=== PATIENT | female | born 1960 | race Caucasian/White ===

== ENCOUNTER → 2019-12-17 11:11 | Outpatient (CLI) | payer OTHER, SELFPAY ==
--- NOTE | ~2019-12-17 | MR_ITS ---
EXAMINATION: MR lumbar spine wo [facility] EXAM DATE: 12/17/2019 11:57 INDICATION: chronic lbp radiating to left hip/leg, no trauma, no ca . TECHNIQUE: Multi-sequential, multiplanar MR images of the lumbar spine were obtained without contrast . Sagittal T1, T2, T2 fat saturation images. Axial T2 weighted images. There is no prior study for comparison. FINDINGS: Moderate to severe disc disease at L5-S1, moderate at L3-4 and L4-5, mild to moderate at L1 -2 and L2-3. The conus medullaris terminates at the T12-L1 level and has normal signal intensity and morphology. There is 3 mm retrolisthesis L2 on L3, 4 mm retrolisthesis L3 on L4, 4 mm anterolisthesi s L4 on L5. Vertebral body heights relatively well-maintained. There are no suspicious marrow signal abnormalities. Paraspinal soft tissue is unremarkable. Level by level evaluation: T12-L1: Disc does not extend beyond the endplate margin. Facet arthropathy: Mild. Neural foraminal stenosis: No stenosis. Central canal stenosis: No stenosis. L1-L2: There is a mild diffuse disc bulge. Facet arthropathy: Mild. Neural foraminal stenosis: No stenosis. Central canal stenosis: No stenosis. L2-L3: There is a moderate diffuse disc bulge. Facet arthropathy: Mild to moderate. Neural foraminal stenosis: Mild to moderate bilateral. Central canal stenosis: Mild. L3-L4: There is a moderate diffuse disc bulge. Facet arthropathy: Moderate. Neural foraminal stenosis: Moderate bilateral. Central canal stenosis: Moderate. L4-L5: There is a moderate diffuse disc bulge. Facet arthropathy: Severe left, moderate right . Ligamentum flavum enlargement. Neural foraminal stenosis: Mild to moderate bilateral. Central canal stenosis: Moderate to severe. L5-S1: There is a mild to moderate diffuse disc bulge. Facet arthropathy: Mild. Neural foraminal stenosis: Mild to moderate left, mild right. Central canal stenosis: Mild. IMPRESSION: 1. L4-5 grade 1 anterolisthesis, moderate to severe central canal stenosis. 2. Lesser spondylosis other levels. Reviewed, dictated and finalized at location A.
== END ==
PROVIDERS: PCP Student in an Organized Health Care Education/Training Program; Visit Provider Nurse Practitioner Adult Health
DX: M54.16 Radiculopathy, lumbar region (principal); M43.16 Spondylolisthesis, lumbar region
CPT/HCPCS: 72148

== ENCOUNTER 2020-02-22 06:54 | Outpatient (NON) | payer OTHER, SELFPAY ==
[2020-02-22 18:01] LABS: SARS-CoV-2 RNA PCR Negative
== END 2020-02-22 06:55 ==
LOC: ANHCOVIDDT 07:00
PROVIDERS: PCP Student in an Organized Health Care Education/Training Program; Visit Provider Student in an Organized Health Care Education/Training Program
DX: R50.9 Fever, unspecified (principal); R51.9 Headache, unspecified; Z20.828 Contact with and (suspected) exposure to other viral communicable diseases
CPT/HCPCS: 87635; C9803; U0003

== ENCOUNTER 2020-06-23 08:45 | Outpatient (CLI) | payer OTHER, SELFPAY ==
--- NOTE | ~2020-06-23 | DEXA_ITS ---
Bone Density Report Name: Sonia Reynoso Age: 60 Sex: Female Ethnicity: White Date of : 1960 Indication: postmenopausal; parental hip fracture; height loss; prior fracture; asthma or emphysema; Referring Provider: EDGARD CONTRERAS Study: Bone densitometry was performed. Exam Date: June 23, 2020 Accession number: [id number] Bone Density: Region BMD T-score Z-score Classification AP Spine (L1-L4) 1.096 0.4 1.9 Normal Femoral Neck (Left) 0.555 -2.6 -1.3 Osteoporosis Total Hip (Left) 0.930 -0.1 0.9 Normal Total Hip Bilateral Avg 0.981 0.3 1.3 Normal Femoral Neck (Right) 0.643 -1.9 -0.5 Osteopenia Total Hip (Right) 1.030 0.7 1.7 Normal World Health Organization criteria for BMD impression classify patients as: Normal (T-score at or above -1.0), Osteopenia (T-score between -1.0 and -2.5), or Osteoporosis (T-score at or below -2.5). 10-year Fracture Risk: FRAX not reported because: Some T-score for Spine Total or Hip Total or Femoral Neck at or below -2.5 Previous Exams: Region Exam Age BMD T-score BMD Change BMD Change Date g/cm2 vs Baseline vs Previous AP Spine(L1-L4) 06/23/2020 60 1.096 0.4 -0.024(-2.2%)* 0.024(2.2%)* 05/01/2018 58 1.072 0.2 -0.048(-4.3%)* -0.048(-4.3%)* 04/01/2014 53 1.120 0.7 Total Hip(Left) 06/23/2020 60 0.930 -0.1 -0.044(-4.5%)* -0.132(-12.4%) 05/01/2018 58 1.062 1.0 0.088(9.0%)* 0.088(9.0%)* 04/01/2014 53 0.974 0.3 Total Hip(Right) 06/23/2020 60 1.030 0.7 0.004(0.4%) -0.059(-5.4%)* 05/01/2018 58 1.089 1.2 0.063(6.2%)* 0.063(6.2%)* 04/01/2014 53 1.026 0.7 *Denotes significance at 95% confidence level, LSC for AP Spine = 0.022 g/cm2, LSC for Total Hip = 0.027 g/cm2 Clinical Information Provided by Patient: Has had a low trauma fracture Parent has had a hip fracture Has used the following medications: Vitamin D, Calcium Has the following medical conditions: Asthma or Emphysema Patient maximum height was 65.5 Menopause Age: 53 Does not regularly consume dairy products Onset of menses at age 10 Number of children 1 Impression: The patient has established osteoporosis, based on the Left Femoral Neck T-score and the existence of a prior fracture. The patient has risk factors, including: parental hip fracture, previous fracture. The BMD for the Total Hip(Left) decreased, changing by -12.4% since the last DXA exam. The BMD for the Total Hip(Right) decreased, changing by
== END 2020-06-23 08:46 | disposition home or self-care (01) ==
LOC: ANHIMG 08:47
PROVIDERS: PCP Student in an Organized Health Care Education/Training Program; Visit Provider Obstetrics & Gynecology
DX: M81.0 Age-related osteoporosis without current pathological fracture (principal); M85.851 Other specified disorders of bone density and structure, right thigh; Z78.0 Asymptomatic menopausal state
CPT/HCPCS: 77080

== ENCOUNTER 2020-08-24 10:35 | Outpatient (CLI) | payer OTHER, SELFPAY ==
--- NOTE | ~2020-08-24 | XR_ITS ---
EXAMINATION: XR_ENEMABAC_CR DATE: 08/24/2020 11:40 INDICATION: Incomplete colonoscopy TECHNIQUE: A spanish speaking babysitter radiograph was obtained. A catheter was inserted into the patient's rectum. Contra st was infused by gravity. Gas was infused by hand pump. Fluoroscopic spot images and conventional ra diographs were obtained. A total of 18 overhead images and 16 fluoroscopic images were obtained. Fluo roscopy exposure time was 2.2 minutes. Total DAP was 166.5 mGycm^2 COMPARISON: None. FINDINGS: There is a single small filling defect smooth margins consistent with a sessile polyp located at the proximal descending colon likely relatively close proximity to the ileocecal valve which measures eli roximately 1.7 x 0.8 cm in maximal diameter at its base and approximately 7 mm in thickness. No other polyps, strictures, diverticula or other mucosal irregularities appreciated throughout the remainder of the redundant colon. Small amount of contrast extends into the appendix. Cholecystectomy clips in the right upper quadrant. Moderate to severe lower lumbar spondylosis with grade 1 anterolisthesis L 4 on L5. IMPRESSION: 1. Suggestion of a small sessile polyp with smooth margins at the proximal ascending colon. Otherwise unremarkable double contrast enema. Reviewed, dictated and finalized at location A. IMPRESSION: 1. Suggestion of a small sessile polyp with smooth margins at the proximal asce nding colon. Otherwise unremarkable double contrast enema.
== END 2020-08-24 10:36 | disposition home or self-care (01) ==
LOC: ANHIMG 10:36
PROVIDERS: PCP Student in an Organized Health Care Education/Training Program; Visit Provider Internal Medicine Gastroenterology
DX: Z12.11 Encounter for screening for malignant neoplasm of colon (principal); M47.816 Spondylosis without myelopathy or radiculopathy, lumbar region
CPT/HCPCS: 74280

== ENCOUNTER 2022-11-22 09:58 | Outpatient (CLI) | payer OTHER, SELFPAY ==
--- NOTE | ~2022-11-22 | DEXA_ITS ---
Bone Density Report Name: BLAKE COBB Age: 62 Sex: Female Ethnicity: White Date of : 1960 Indication: postmenopausal; screening for osteoporosis; height loss; asthma or emphysema; Referring Provider: EDGARD CONTRERAS Study: Bone densitometry was performed. Exam Date: November 22, 2022 Accession number: [id number] Bone Density: Region BMD T-score Z-score Classification AP Spine(L1-L4) 1.226 1.6 3.3 Normal Femoral Neck (Left) 0.609 -2.2 -0.7 Osteopenia Total Hip (Left) 0.964 0.2 1.3 Normal Femoral Neck (Right) 0.705 -1.3 0.1 Osteopenia Total Hip (Right) 1.061 1.0 2.1 Normal Total Hip Mean 1.013 0.6 1.7 Normal World Health Organization criteria for BMD impression classify patients as: Normal (T-score at or above -1.0), Osteopenia (T-score between -1.0 and -2.5), or Osteoporosis (T-score at or below -2.5). 10-year Fracture Risk: FRAX not reported because: Treated for osteoporosis Clinical Information Provided by Patient: Is being treated for osteoporosis Has used the following medications: Boniva (i.e. ibandronate), Vitamin D, Calcium Has the following medical conditions: Asthma or Emphysema Patient maximum height was 65 Menopause Age: 53 Does not regularly consume dairy products Onset of menses at age 10 Number of children 1 Impression: The patient has low bone mass, based on the Left Femoral Neck T-score. Discussion: It is important to ask patients whether they are taking their medications and to encourage continued and appropriate compliance with their osteoporosis therapies to reduce fracture risk. It is also important to review their risk factors and encourage appropriate calcium and vitamin D intakes, exercise, fall prevention and other lifestyle measures. Follow-Up: Consider a repeat BMD and Vertebral Fracture Assessment (VFA) exam in 2 years or sooner if medically necessary, to reassess this patient's status. Reported by: [facility] on 11/24/2022 1:51:00 PM. Reviewed, dictated and finalized at location AChai GROSS
== END 2022-11-22 09:59 | disposition home or self-care (01) ==
LOC: ANHIMG 10:00
PROVIDERS: PCP Student in an Organized Health Care Education/Training Program; Visit Provider Obstetrics & Gynecology
DX: M81.0 Age-related osteoporosis without current pathological fracture (principal); M85.89 Other specified disorders of bone density and structure, multiple sites
CPT/HCPCS: 77080

== ENCOUNTER 2023-07-16 13:27 | Outpatient (CLI) | payer OTHER, SELFPAY ==
--- NOTE | ~2023-07-16 | MR_ITS ---
EXAMINATION: MR breast BI wo/w con INDICATION: Atypical ductal hyperplasia TECHNIQUE: Axial VIBRANT pre and dynamic post contrast, Sagittal VIBRANT post contrast, Axial T2 STIR ASSET COMPARISON: Mammography dated 06/20/2023 CONTRAST: Multihance, 20 cc BREAST COMPOSITION: Almost entirely fat FINDINGS: RIGHT BREAST: There is mild background parenchymal enhancement. No abnormal enhancement is present af ter contrast administration. No pathologically enlarged axillary or internal mammary lymph nodes are identified. LEFT BREAST: There is mild background parenchymal enhancement. There is probable focal postbiopsy maxi nge in the outer left breast. No abnormal enhancement is present after contrast administration. No pa thologically enlarged axillary or internal mammary lymph nodes are identified. IMPRESSION: No suspicious enhancement identified. No MR evidence for malignancy. BI-RADS Category 1: Negative Reviewed, dictated and finalized at [facility].
== END 2023-07-16 13:28 | disposition home or self-care (01) ==
PROVIDERS: PCP Student in an Organized Health Care Education/Training Program; Visit Provider Surgery
DX: N60.92 Unspecified benign mammary dysplasia of left breast (principal); Z12.39 Encounter for other screening for malignant neoplasm of breast; R92.2 Inconclusive mammogram
CPT/HCPCS: 77049; A9577; C8908

== ENCOUNTER 2023-08-05 08:00 | Emergency (ER) | payer OTHER, SELFPAY ==
--- NOTE | 2023-08-05 08:06 | ED.URI ---
HPI - URI/Sore Throat General Chief Complaint: Upper Respiratory Infection Stated Complaint: SORE THROAT S/P + STREP Source: patient Mode of arrival: ambulatory Limitations: no limitations History of Present Illness HPI Narrative: Patient is a 63-year-old female who presents with 4 days of sinus congestion, postnasal drip and slight sore throat. Patient was treated for strep throat 3 weeks ago and wants to ensure she does not have strep again. Patient takes daily allergy medicine and has been taking Sudafed. Denies any fever, chills, nausea, vomiting, diarrhea. Related Data Home Medications Medication Instructions Recorded Confirmed albuterol sulfate 90 mcg/actuation 1 inhalation inhalation Q4H 04/25/19 08/05/23 aerosol inhaler (Proventil HFA) clopidogrel 75 mg tablet (Plavix) 75 mg PO DAILY 04/25/19 08/05/23 coenzyme Q10 200 mg capsule 200 mg PO DAILY 04/25/19 08/05/23 esomeprazole magnesium 40 mg 40 mg PO DAILY 04/25/19 08/05/23 capsule,delayed release (Nexium) fluticasone furoate 100 1 inhalation inhalation DAILY 04/25/19 08/05/23 mcg-vilanterol 25 mcg/dose inhalation powder (Breo Ellipta) montelukast 10 mg tablet 10 mg PO DAILY 04/25/19 08/05/23 (Singulair) omalizumab 150 mg subcutaneous 150 mg subcut ONCE 04/25/19 08/05/23 solution (Xolair) rosuvastatin 10 mg tablet (Crestor) 10 mg PO DAILY 04/25/19 08/05/23 spironolactone 50 mg tablet 50 mg PO DAILY 04/25/19 08/05/23 diltiazem HCl 300 mg 240 mg PO DAILY 07/09/23 08/05/23 capsule,extended release 24 hr (Cardizem CD) levothyroxine 100 mcg tablet 112 mcg PO DAILY 07/09/23 08/05/23 methocarbamol 500 mg tablet 500 mg PO BID-TID 07/09/23 08/05/23 olopatadine 665 mcg-mometasone 25 2 spray intranasal BID 08/03/23 08/05/23 mcg/spray nasal spray tramadol 50 mg tablet 50 mg PO Q6H PRN Pain 08/03/23 08/05/23 Allergies Allergy/AdvReac Type Severity Reaction Status Date / Time aspirin Allergy Severe Swelling Verified 08/05/23 08:10 of Lip/Tongue/Throat Sulfa (Sulfonamide Allergy Intermediate Hives Verified 08/05/23 08:10 Antibiotics) Review of Systems Review of Systems: All systems reviewed & are unremarkable except as noted in HPI and below Constitutional: Constitutional: Denies body ache(s), Denies chills, Denies fatigue, Denies fever(s), Denies headache(s), Denies malaise and Denies weakness Eyes: Eyes: Denies blurry vision, Denies itchy eyes and Denies loss of vision ENT: Denies otalgia, Denies headache(s), Reports nasal congestion, Reports post nasal drip, Denies sinus pain and Reports sore throat Cardiovascular: Cardiovascular: Denies chest pain, Denies irregular heart rhythm and Denies dyspnea Respiratory: Respiratory: Denies cough and Denies dyspnea Gastrointestinal: Gastrointestinal: Denies abdominal pain, Denies diarrhea, Denies nausea and Denies vomiting Musculoskeletal: Musculoskeletal: Denies back pain, Denies myalgias and Denies arthralgias Integumentary/Breasts: Skin/Breast: Denies pruritus and Denies rash Neurologic: Denies headache(s), Denies loss of vision and Denies weakness Psychiatric: Psychiatric: Reports no additional psychiatric complaints Endocrine: Endocrine: Denies fatigue Allergic/Immunologic: Allergic/Immunologic: Denies itchy eyes PMFSH Past Medical History Medical History Asthma Deep vein thrombosis Hypertension Hypothyroid Pulmonary embolism Restless leg syndrome Sleep apnea Tachycardia Surgical History Surgical History H/O left knee surgery H/O sinus surgery History of carpal tunnel surgery History of cataract surgery History of section History of surgery on arm S/P cholecystectomy Family History Family History Father Hypertension Family history of elevated blood lipids Cerebrovascular accident As
[2023-08-05 08:16] VITALS: BP 136/85; PULSE 91; RESP 15; TEMP 36.7; O2SAT 99
== END 2023-08-05 08:40 | disposition home or self-care (01) ==
PROVIDERS: Emergency Provider Nurse Practitioner Family; PCP Student in an Organized Health Care Education/Training Program
DX: J06.9 Acute upper respiratory infection, unspecified (principal); J45.909 Unspecified asthma, uncomplicated; I10 Essential (primary) hypertension; E03.9 Hypothyroidism, unspecified; G25.81 Restless legs syndrome; Z86.711 Personal history of pulmonary embolism; Z86.718 Personal history of other venous thrombosis and embolism
CPT/HCPCS: 87081; 87880; 99213; G0463

== ENCOUNTER 2023-08-13 15:27 | Outpatient (CLI) | payer OTHER, SELFPAY ==
[2023-08-14 14:19] LABS: Homocysteine 9.5 umol/L (<10.4)
[2023-08-22 19:48] LABS: Factor V (Leiden) Mutation NEGATIVE
== END 2023-08-13 15:28 | disposition home or self-care (01) ==
PROVIDERS: PCP Student in an Organized Health Care Education/Training Program; Visit Provider Internal Medicine Hematology & Oncology
DX: D68.69 Other thrombophilia (principal)
CPT/HCPCS: 36415; 81240; 81241; 83090; 85300; 85303; 85306; 85613; 85730; 86146

== ENCOUNTER 2023-08-17 15:27 | Outpatient (CLI) | payer OTHER, SELFPAY ==
[2023-08-19 19:33] LABS: Lupus dRVVT Screen 42 sec (< OR = 45); PTT-LA Screen 34 sec (< OR = 40)
[2023-08-20 05:19] LABS: Antithrombin III Activity 132 % normal (80-135)
== END 2023-08-17 15:28 | disposition home or self-care (01) ==
LOC: ANHLAB 15:28
PROVIDERS: PCP Student in an Organized Health Care Education/Training Program; Visit Provider Internal Medicine Hematology & Oncology
DX: D68.69 Other thrombophilia (principal)
CPT/HCPCS: 36415; 85300; 85303; 85306; 85613; 85730

== ENCOUNTER 2023-09-10 07:55 | Outpatient (CLI) | payer OTHER, SELFPAY ==
--- NOTE | ~2023-09-10 | MM_ITS ---
EXAMINATION: MM_MAGSEEDLT_MG INDICATION: Left breast atypical ductal hyperplasia TECHNIQUE: The procedure for a ultrasound -guided Magseed localization was discussed with the patient . Risks discussed included bleeding and infection. The patient verbalized understanding and agreed to proceed. The time out was performed to verify the patient's name, date of , and site of procedure. The s kin overlying the left breast was prepared in usual fashion. Utilizing mammographic guidance, the nee dle was advanced into the left breast. Confirmation of Magseed position was achieved with ultrasound and subsequent mediolateral and craniocaudal mammogram. The patient tolerated procedure without immed iate complication. BREAST PARENCHYMAL COMPOSITION: Not dense: There are scattered areas of fibroglandular density. FINDINGS: Mammographic images demonstrate deployment of the Magseed device of the left breast. IMPRESSION: 1. Successful ultrasound-guided left breast Magseed localization. Post procedure mammogram for marker placement. Reviewed, dictated and finalized at location B. IMPRESSION: 1. Successful ultrasound-guided left breast Magseed localization. Post procedur e mammogram for marker placement.
== END 2023-09-10 07:56 | disposition home or self-care (01) ==
PROVIDERS: PCP Student in an Organized Health Care Education/Training Program; Visit Provider Surgery
DX: Z12.31 Encounter for screening mammogram for malignant neoplasm of breast (principal); N60.92 Unspecified benign mammary dysplasia of left breast
CPT/HCPCS: 19281; A4648

== ENCOUNTER 2023-09-21 08:19 | Outpatient (CLI) | payer OTHER, SELFPAY ==
--- NOTE | 2023-09-21 08:29 | ECG_ITS ---
Test Date: 2023-09-21 08:46:11 Measurements Intervals [place] Rate: 67 P: 62 VT: 156 QRS: -18 QRSD: 95 T: 23 QT: 360 QTc: 382 Interpretive Statements SINUS RHYTHM WITH SINUS ARRHYTHMIA EXTENSIVE ANTERIOR INFARCT, AGE INDETERMINATE INFERIOR INFARCT, AGE INDETERMINATE BASELINE ARTIFACT- I, II, III, AVR, AVL, AVF, V1 ABNORMAL ECG No previous ECG available for comparison Electronically Signed On 09-21-2023 09:17:24 CDT by Steve Garcia D.O.
[2023-09-21 09:04] LABS: Anion Gap 12 mmol/L (4-12); Blood Urea Nitrogen 19 mg/dL (7-17); Calcium 9.7 mg/dL (8.4-10.2); Carbon Dioxide 28 mmol/L (22-30); Chloride 99 mmol/L (98-107); Estimated Glomerular Filt Rate > 60; Glucose 115 mg/dL (65-110); Sodium 139 mmol/L (137-145)
== END 2023-09-21 08:20 | disposition home or self-care (01) ==
LOC: ANHSURGERY 08:24
PROVIDERS: Anesthesiology; PCP Student in an Organized Health Care Education/Training Program; Visit Provider Surgery
DX: Z01.818 Encounter for other preprocedural examination (principal); I10 Essential (primary) hypertension; I49.8 Other specified cardiac arrhythmias; R94.31 Abnormal electrocardiogram [ECG] [EKG]; Z79.899 Other long term (current) drug therapy
CPT/HCPCS: 36415; 80048; 93005

== ENCOUNTER 2023-09-22 00:29 | Day surgery (SDC) | payer OTHER, SELFPAY ==
[2023-09-16 11:41] VITALS: BMI 38.3
--- NOTE | 2023-09-16 11:50 | PC.NURSE ---
Report to the Outpatient Waiting Room, entrance under the green pavilion located off [facility], at time _0600_ on date _[id number]_. Planned Procedure Time: _0730_. Time changes happen often and if your time is changed the preop area will call you the afternoon before. - You and your visitor will be asked to self-screen and do not enter if you have any COVID symptoms. - A mask is optional within the hospital at this time. Patients may have clear liquids (water, carbonated beverages, clear teas, apple juice) until 3 hours prior to surgery with a maximum of 20 ounces. - No food from midnight until time of surgery Take the following medications with a SIP of water the morning of surgery: ___Diltiazem, Levothyroxine, Breo Ellipta DO NOT STOP ANY OF YOUR OTHER PRESCRIPTION MEDICATIONS PRIOR TO SURGERY ?EXCEPT THE FOLLOWING Medications to discontinue per physician All vitamins and fish oil Date to take last nilw__[id number] _Patient stopped Plavix 09-15-2023 Please no make-up, nail chinese, hairspray, perfume, deodorant, or body powder the day of surgery. No jewelry (including any body piercings) or valuables the day of surgery, leave them at home. Please take a shower or bath the night before, or the morning of, surgery with an antibacterial soap. Wear comfortable, loose fitting clothing. - Jewelry must be removed prior to entering the operating room. Rings and piercings that are not removed may be cut off. - The hospital will not accept responsibility for valuables. - Please leave all valuables, including medications, at home the day of surgery. If you are going home after surgery, a licensed certified driver examiner must drive you home. - NO public transportation without another adult if you receive anesthesia. - We recommend that an adult stay with you for 24 hours following discharge. - We also recommend that you do not drive, make important decision, drink alcoholic beverages, or take any drugs that were not prescribed by your health care provider for at least 24 hours after your discharge time. Follow any additional instructions given to you from your surgeon. If you or anyone in your household have experienced Covid symptoms in the past week, please notify your surgeon or the nurse liaison at the phone number below for possible testing. Telephone instructions given to __Sonia___and asked if any additional questions and then verbalized understanding. Patient advised to call surgeon office or pre surgery nurse liaison [phone] if any additional questions.
[2023-09-22] VITALS (8 sets, daily range): BP systolic 101–134; BP diastolic 71–78; PULSE 73–88; RESP 14–20; TEMP 36.2–36.8; O2SAT 94–100
--- NOTE | ~2023-09-22 | MM_ITS ---
MM_FAXITRON_MG 09/22/2023 09:20 Indication: Breast cancer Procedure: Faxitron specimen radiograph Comparison: 09/10/2023 Findings: Specimen radiograph contains tissue marker from previous biopsy and magseed device. Impression: 1: Tissue marker and magseed contained in postsurgical biopsy specimen. Reviewed, dictated and finalized at location B. Impression: 1: Tissue marker and magseed contained in postsurgical biopsy specimen.
[2023-09-22] MEDS: ACETAMINOPHEN 500 MG TABLET 1000 MG PO (06:20)
[2023-09-22] MEDS: LACTATED RINGERS 1,000 ML 30 ML IV CONT ×2 (06:25→08:48)
--- NOTE | 2023-09-22 07:00 | WPDHPUPDATE1 ---
History and Physical Update Update Date/Time: 09/22/23 07:00 - Left lumpectomy with Mag seed localization and possible adjacent tissue transfer. History and Physical has been reviewed, including an updated exam of the patient. There are NO changes in the patient's condition. Risks, benefits, and alternatives have been discussed and questions answered. Patient agrees to proceed with procedure.
--- NOTE | 2023-09-22 07:16 | WPDANESEPPF ---
Anes - Initial Pre Proc Eval Procedure: Operation Date: 09/22/23 07:30 Proposed Procedures p Left Breast Lumpectomy with Mag Seed Localization, Possible Adjacent Tissue Transfer - Madalyn Melgar MD Date/Time: 09/22/23 07:16 Surgeon: Madalyn Melgar MD Pre Op Diagnosis: atypical ductal hyperplasia left breast Patient Data Age: 63 Gender: F Height: 1.65 m Weight: 105.9 kg Last Vital Signs Temp 97.2 F L 09/22/23 06:01 Pulse 78 09/22/23 06:01 Resp 18 09/22/23 06:01 BP 117/74 09/22/23 06:01 Pulse Ox 99 09/22/23 06:01 O2 Del Method Room Air 09/22/23 06:01 Allergies Allergy/AdvReac Type Severity Reaction Status Date / Time aspirin Allergy Severe Swelling Verified 09/16/23 11:30 of Lip/Tongue/Throat Sulfa (Sulfonamide Allergy Intermediate Hives Verified 09/16/23 11:30 Antibiotics) Home Medications Medication Instructions Recorded Confirmed Type albuterol sulfate 90 mcg/actuation 1 inhalation inhalation Q4H PRN 04/25/19 09/16/23 History aerosol inhaler (Proventil HFA) Dyspnea clopidogrel 75 mg tablet (Plavix) 75 mg PO DAILY 04/25/19 09/16/23 History coenzyme Q10 200 mg capsule 200 mg PO DAILY 04/25/19 09/16/23 History esomeprazole magnesium 40 mg 40 mg PO DAILY 04/25/19 09/16/23 History capsule,delayed release (Nexium) fluticasone furoate 100 1 inhalation inhalation DAILY 04/25/19 09/16/23 History mcg-vilanterol 25 mcg/dose inhalation powder (Breo Ellipta) montelukast 10 mg tablet 10 mg PO DAILY 04/25/19 09/16/23 History (Singulair) omalizumab 150 mg subcutaneous 150 mg subcut ONCE 04/25/19 09/16/23 History solution (Xolair) rosuvastatin 10 mg tablet (Crestor) 10 mg PO DAILY 04/25/19 09/16/23 History spironolactone 50 mg tablet 50 mg PO DAILY 04/25/19 09/16/23 History alendronate 70 mg tablet (Fosamax) 70 mg PO WEEKLY #12 tabs 05/27/23 09/16/23 Rx methocarbamol 500 mg tablet 500 mg PO BID-TID 07/09/23 09/16/23 History olopatadine 665 mcg-mometasone 25 2 spray intranasal BID 08/03/23 09/16/23 History mcg/spray nasal spray acetaminophen 650 mg 1,300 mg PO Q12H 09/16/23 09/16/23 History tablet,extended release calcium 600 mg capsule 1,200 mg PO DAILY 09/16/23 09/16/23 History cholecalciferol (vitamin D3) 25 25 mcg PO DAILY 09/16/23 09/16/23 History mcg (1,000 unit) tablet (Vitamin D3) diltiazem HCl 240 mg 240 mg PO DAILY 09/16/23 09/16/23 History capsule,extended release 24 hr folic acid 1 mg tablet 1 mg PO DAILY 09/16/23 09/16/23 History levothyroxine 125 mcg tablet 125 mcg PO DAILY 09/16/23 09/16/23 History magnesium 250 mg tablet 250 mg PO DAILY 09/16/23 09/16/23 History multivitamin 1 tablet PO DAILY 09/16/23 09/16/23 History omega 1-bbz-ajy-fish oil 1,200 mg 1 cap PO DAILY 09/16/23 09/16/23 History (144 mg-216 mg) capsule (Fish Oil) pyridoxine (vitamin B6) 200 mg 200 mg PO DAILY 09/16/23 09/16/23 History tablet triamcinolone acetonide 55 mcg 1 spray intranasal DAILY 09/16/23 09/16/23 History nasal spray aerosol (Nasacort) Patient hx anesthesia problems: none Family hx anesthesia problems: none Results Review: All pre-operative results and documents have been reviewed as part of the pre-operative evaluation. [facility] Past Medical History Medical History Asthma Deep vein thrombosis Hypertension Hypothyroid Pulmonary embolism Restless leg syndrome Sleep apnea Tachycardia Surgical History Surgical History H/O left knee surgery H/O sinus surgery History of carpal tunnel surgery History of cataract surgery History of section History of surgery on arm S/P cholecystectomy Family History Family History Father Hypertension Family history of elevated blood lipids Cerebrovascular accident Asthma Mother Hypertension, Onset Age
[2023-09-22] MEDS: BUPIVACAINE/EPINEPHRINE 0.5% 10 ML VIAL 20 ML INFILTRATE (07:31)
[2023-09-22] MEDS: ceFAZolin 2 GM/D5W 50 ML 2 GM/50 ML BAG IVPB (07:31)
--- NOTE | 2023-09-22 08:31 | W.PM.PROC2 ---
Procedure Note - Detailed Date of Procedure 09/22/23 Pre-op Diagnosis atypical ductal hyperplasia left breast Post-op Diagnosis Same Procedure Performed 1. Left lumpectomy with magseed localization 2. Adjacent tissue transfer (2cm x 6cm) Surgeon Madalyn Melgar MD Apprenticeship Training Representative Yanely Esquivel PA-C Anesthesia General Description of Procedure Patient was identified in the pre-operative area and brought to the OR suite. She underwent tumor localization previously by IR with magseed placement. She was laid supine in the operating table and sequential compression devices were applied. General anesthesia was induced without difficulties. The left chest was prepped and draped in a sterile fashion. The sentimag probe was used to identify the area where the magseed was placed and a lateral inframammary incision was made. Dissection was carried down through the subcutaneous tissue into the breast tissue. The tumor was identified with palpation and using sentimag probe, and a rim of normal breast tissue was excised along with the tumor as our lumpectomy specimen. Once the specimen was completely excised, it was oriented using surgical paint according to seed district sales manager instructions. The specimen was placed in the faxitron and 2 radiographs were obtained and sent to Radiology for radiographic confirmation of biopsy marker and magseed within the specimen. Once the radiographic confirmation was received, the wound was irrigated with saline and hemostasis was assured. The breast tissue was immobilized superiorly to close the cavity and decrease seroma formation. The breast tissue was then advanced inferiorly to close the defect nicely. The deep dermal layer was approximated using interrupted 3-0 vicryl followed by 4-0 monocryl for the skin. Dermabond was applied followed by a surgical bra. Patient was awoken from anesthesia and taken to the recovery area in stable condition. All needles, instruments and sponge counts were correct as reported by the operating room staff. Patient tolerated the procedure well with no immediate complications. Yanely Esquivel PA-C was required for positioning and retraction throughout the entire case. Estimated Blood Loss 1 Pathology Yes Complications No immediate complications Condition Stable Disposition PACU [facility] Billing Surgery - Charge Forward: Surgery Billing (CPT 72101, [id number])
== END 2023-09-22 10:15 | disposition home or self-care (01) ==
PROVIDERS: PCP Student in an Organized Health Care Education/Training Program; Visit Provider Surgery
PROC: (CPT 19301; principal; 2023-09-22 07:30)
DX: N60.92 Unspecified benign mammary dysplasia of left breast (principal); N60.12 Diffuse cystic mastopathy of left breast; J45.909 Unspecified asthma, uncomplicated; I10 Essential (primary) hypertension; E03.9 Hypothyroidism, unspecified; G25.81 Restless legs syndrome; G47.30 Sleep apnea, unspecified; Z86.718 Personal history of other venous thrombosis and embolism; Z86.711 Personal history of pulmonary embolism; Z79.51 Long term (current) use of inhaled steroids; Z79.02 Long term (current) use of antithrombotics/antiplatelets; E66.9 Obesity, unspecified; Z68.38 Body mass index [BMI] 38.0-38.9, adult
CPT/HCPCS: 19301; 14001; 36415; 76098; 80048; 88305; 88307; 93005; A9270; J0690; J1100; J2405; J2704; J3010; J7120; Q9968

== ENCOUNTER 2024-01-20 09:51 | Outpatient (CLI) | payer OTHER, SELFPAY ==
[2024-01-20 10:01] LABS: Basophils Percent Auto 0.5 % (0.2-1.2); Eosinophils Absolute Auto 0.1 K/mm3 (0-0.3); Eosinophils Percent Auto 1.4 % (0-4.4); Hematocrit 44.6 % (37.0-47.0); Hemoglobin 14.7 g/dL (12.0-15.0); Immature Granulocyte Absolute 0.08 K/mm3 (0.00-0.031); Immature Granulocyte Percent A 1.1 % (0-0.5); Lymphocytes Absolute Auto 3.23 K/mm3 (0.9-3.2); Lymphocytes Percent Auto 43.9 % (18.3-44.2); Mean Corpuscular Hemoglobin 31.7 pg (26-34); Mean Corpuscular Volume 96.3 fl (80-100); Mean Platelet Volume 9.8 fl (7.4-10.4); Monocytes Absolute Auto 0.7 K/mm3 (0.1-0.6); Neutrophils Absolute Auto 3.2 K/mm3 (1.3-6.7); Neutrophils Percent Auto 44.1 % (45.5-73.1); Platelet Count Result 201 k/mm3 (150-375); Red Blood Count 4.63 M/mm3 (4.2-5.4); Red Cell Distribution Width 13.3 % (11.5-14.5); White Blood Count 7.4 K/mm3 (4.5-10.0)
[2024-01-20 10:06] LABS: Blood Urea Nitrogen 17 mg/dL (8-26); Carbon Dioxide 29 mmol/L (22-30); Chloride 103 mmol/L (98-109); Estimated Glomerular Filt Rate 50; Glucose 100 mg/dL (70-105); Ionized Calcium (POC) 1.17 mmol/L (1.11-1.31); Potassium 3.8 mmol/L (3.5-4.9); Sodium 142 mmol/L (138-146)
[2024-01-20 16:18] LABS: Alanine Aminotransferase 47 U/L (6-35); Albumin Level 4.6 g/dL (3.5-5.1); Alkaline Phosphatase 55 U/L (38-126); Anion Gap 7 mmol/L (4-12); Aspartate Amino Transferase 46 U/L (14-36); Bilirubin,Total 0.5 mg/dL (0.2-1.3); Blood Urea Nitrogen 17 mg/dL (7-17); Calcium 9.4 mg/dL (8.4-10.2); Carbon Dioxide 27 mmol/L (22-30); Chloride 105 mmol/L (98-107); Estimated Glomerular Filt Rate > 60; Glucose 96 mg/dL (65-110); Potassium 3.9 mmol/L (3.4-5.0); Sodium 139 mmol/L (137-145)
== END 2024-01-20 09:52 | disposition home or self-care (01) ==
LOC: ANHLAB 09:52
PROVIDERS: PCP Student in an Organized Health Care Education/Training Program; Visit Provider Internal Medicine Hematology & Oncology
DX: N60.99 Unspecified benign mammary dysplasia of unspecified breast (principal)
CPT/HCPCS: 36415; 80047; 80053; 85025

== ENCOUNTER 2024-04-25 13:49 | Outpatient (CLI) | payer OTHER, SELFPAY ==
[2024-04-25 14:25] LABS: Basophils Absolute Auto 0.1 K/mm3 (0.0-0.1); Basophils Percent Auto 0.6 % (0.2-1.2); Eosinophils Absolute Auto 0.1 K/mm3 (0-0.3); Eosinophils Percent Auto 0.8 % (0-4.4); Hemoglobin 13.9 g/dL (12.0-15.0); Immature Granulocyte Absolute 0.03 K/mm3 (0.00-0.031); Immature Granulocyte Percent A 0.3 % (0-0.5); Lymphocytes Absolute Auto 3.08 K/mm3 (0.9-3.2); Lymphocytes Percent Auto 34.8 % (18.3-44.2); Mean Corpuscular HGB Conc 33.1 g/dl (32-36); Mean Corpuscular Hemoglobin 32.6 pg (26-34); Mean Corpuscular Volume 98.6 fl (80-100); Mean Platelet Volume 9.9 fl (7.4-10.4); Monocytes Absolute Auto 0.7 K/mm3 (0.1-0.6); Monocytes Percent Auto 7.5 % (2.6-8.5); Platelet Count Result 206 k/mm3 (150-375); Red Blood Count 4.26 M/mm3 (4.2-5.4); Red Cell Distribution Width 13.6 % (11.5-14.5); White Blood Count 8.9 K/mm3 (4.5-10.0)
[2024-04-25 14:34] LABS: Blood Urea Nitrogen 20 mg/dL (8-26); Carbon Dioxide 24 mmol/L (22-30); Chloride 105 mmol/L (98-109); Estimated Glomerular Filt Rate 50; Glucose 119 mg/dL (70-105); Ionized Calcium (POC) 1.16 mmol/L (1.11-1.31); Sodium 141 mmol/L (138-146)
== END 2024-04-25 13:50 | disposition home or self-care (01) ==
LOC: ANHLAB 13:51
PROVIDERS: PCP Student in an Organized Health Care Education/Training Program; Visit Provider Internal Medicine Hematology & Oncology
DX: N60.99 Unspecified benign mammary dysplasia of unspecified breast (principal); D68.69 Other thrombophilia
CPT/HCPCS: 36415; 80047; 85025

== ENCOUNTER 2024-06-07 10:25 | Outpatient (CLI) | payer OTHER, SELFPAY ==
--- NOTE | ~2024-06-07 | MMUS_ITS ---
EXAMINATION: US breast RT limited, MM diagnostic becky BI w anneliese HISTORY: Palpable right breast lump. Recent left lumpectomy. TECHNIQUE: Additional 3-D tomosynthesis images of the breasts were performed and synthetic 2-D images were generated. CAD analysis was submitted and interpreted. High resolution Limited left breast ultr asound was performed. COMPARISON: Comparison to multiple prior studies sequentially, with oldest reviewed study dated 10/2021. BREAST PARENCHYMAL COMPOSITION: Not Dense: The breasts are almost entirely fatty. FINDINGS: MAMMOGRAPHIC FINDINGS: There is no mammographic evidence for malignancy in the right breast. There are lumpectomy changes in the mid outer aspect of the left breast at approximately the 3:00 position. There are no suspicious masses or calcifications in the left breast to suggest malignancy. ULTRASOUND: Limited right breast ultrasound: Normal heterogeneous echotexture in the area of palpable concern. No discrete mass. IMPRESSION: 1. No evidence for malignancy in either breast. 2. Routine yearly screening mammogram and regular clinical breast examination are recommended. BI-RADS Category 2: Benign finding(s). Reviewed, dictated and finalized at location B. IMPRESSION: 1. No evidence for malignancy in either breast. 2. Routine yearly screening mammogram and regular clinical breast examination a re recommended. BI-RADS Category 2: Benign finding(s).
--- OUTSIDE RECORDS SUMMARY | 2024-06-07 11:24 | XMS_ITS | Encounter Summary ---
Author Organization [facility] Address [address] [place] [address] Care Team Providers Care Oven Tender Bagels Name Role Phone Iker Haynes DO Primary Care Provider + Encounter Details Date Type Department Care Team (Late st Contact Info) Description 10/11/2021 Finalta Message Enc [facility] Family & Internal Medicine [facility] [address] [place] [address] Iker Haynes DO [address] [place] [address] Request for surgery release Social History Tobacco Use Types Packs/Day Years Used Date Smoking Tobacco: Never Smokeless Tobacco: Never Alcohol Use Standard Drinks/Week Comments Never 0 (1 standard drink = 0.6 oz pur e alcohol) AUDIT-C Answer Date Recorded Frequency of Alcohol Consumption Never 04/11/2019 Average Number of Drinks Not on file 020 Frequency of Binge Drinking Not on file 03/26 PHQ-2 Answer Date Recorded PHQ-2 Score - If the patient scores above 3, please move on to questions 3-9 0 06/02/2021 Comments No Sex and Gender Information Value Date Recorded Sex Assigned at Not on file Legal Sex Female 7:15 PM CDT Gender Identity Not on file Sexual Orientation Not on file 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 documented in this encounter Plan of Treatment Upcoming Encounters Date Type Department Care Team (Late st Contact Info) Description 08/01/2024 1:40 PM CDT Office Visit [facility] Family & Internal Medicine - [address] [phone] Iker Haynes DO [facility] [place] [address] documented as of this encounter Visit Diagnoses Not on filedocumented in this encounter Additional Health Concerns Assessment Noted Time PHQ-9 Depression Total Score: 0 04/11/19 20 1:04 PM OFFICE MACHINE EMBOSSOGRAPH OPERATOR documented as of this encounter Care Teams Oven Tender Bagels Relationship Specialty Start Date End Date Iker Haynes DO [address] [place] [id number] PCP - General FAMILY PRACTICE 03/10/19 documented as of this encounter
--- OUTSIDE RECORDS SUMMARY | 2024-06-07 11:24 | XMS_ITS | Clinical Summary ---
Author Organization [facility] Address [address] [place] [address] Care Team Providers Care Pole Sander Operator Name Role Phone Iker Haynes DO Primary Care Provider + Allergies Active Allergy Reactions Criticality Noted Date Comments Aspirin Anaphylaxis,Hives,Swelling High 8 hives Fenofibrate Rash Medium 08/02/2018 rash Pravastatin Myalgias Medium 08/02/2018 myalgias Simvastatin Myalgias Medium 08/02/2018 myalgias Sulfa Antibiotics Hives,Unknown High 08/02/2018 Medications esomeprazole 40 MG capsule 1 capsule (40 mg total) 2 (two) times daily. Active montelukast 10 MG tablet Take 1 tablet (10 mg total) by mouth daily. Active cetirizine 10 MG tablet Take 1 tablet (10 mg total) by mouth daily. Active spironolactone 50 MG tablet Take 1 tablet (50 mg total) by mouth daily. 0 Active rosuvastatin 10 MG tablet Take 1 tablet (10 mg total) by mouth daily. 0 Active Coenzyme Q10 10 MG capsule 200 mg daily. Activ e omalizumab 150 MG injection 1.2 mLs (150 mg total) once. Every 4 weeks Active cloNIDine 0.1 MG tablet Take 1 tablet (0.1 mg total) by mouth daily. Active EPINEPHrine 0.15 MG/0.3ML injection Inject 0.3 mLs (0.15 mg total) into the muscle. Active triamcinolone acetonide 55 MCG/ACT nasal inhaler 2 sprays by Each Nostril route daily. Active folic acid (FOLVITE) 1 MG tablet Take 3 tablets (3 mg total) by mouth daily. Active fish oil (OMEGA-3 FATTY ACID) 1000 MG Cap capsule 4 capsules (4,000 mg total) daily. Active magnesium oxide (MAG-OX) 400 MG tablet 1 tablet (400 mg total) daily. Active Cholecalciferol 50 MCG (2000 UT) Cap 2,000 Units daily. Active albuterol (PROVENTIL) (2.5 MG/3ML) 0.083% nebulizer solution Inhale the contents of 1 vial per nebulizer every 6 hours. 3 Active diclofenac sodium (VOLTAREN) 1 % gel Apply 2 g topically 2 (two) times daily. Active alendronate (FOSAMAX) 70 MG tablet Take 1 tablet (70 mg total) by mouth every 7 days. Active albuterol sulfate HFA 108 (90 Base) MCG/ACT inhaler Acti ve dilTIAZem ER 240 MG 24 hr capsule 4 Active fluticasone furoate-vilanter ol (BREO ELLIPTA) 100-25 MCG/ACT inhaler Inhale 1 puff into the lungs daily. Active methocarbamol (ROBAXIN) 500 MG tabletIndication s:Spinal stenosis of lumbar region at multiple levels TAKE 1 TABLET 3 TIMES A DAYAS NEEDED 90 tablet 4 Active anastrozole (ARIMIDEX) 1 MG tablet Take 1 tablet by mouth daily. Active traMADol ER 200 MG TABLET SR 24 HR 24 hr tablet as needed. Act ayala Multiple Vitamin (DAILY VITES) Tab Take 1 tablet by mouth daily. Active levothyroxine (SYNTHROID) 125 MCG tabletIndication s:Hypothyroidism , unspecified type TAKE 1 TABLET BY MOUTH EVERY MORNING 90 tablet 5 Active Active Problems Problem Noted Date Diagnosed Date Atypical ductal hyperplasia of left breast 07/02 Macular degeneration 08/04/2022 Pure hypercholesterolemia 06/04/2021 Osteoporosis 08/31/2020 Elevated transaminase level 05/21/2020 BMI 40.0-44.9, adult 01/22/2020 Allergies 01/18/2020 Anterolisthesis 01/18/2020 DDD (degenerative disc disease), lumbar 01/18/20 20 Spinal stenosis of lumbar region at multiple lev els 01/18/2020 Spinal stenosis 09/27/2019 Hypothyroidism, unspecified type 04/11/2019 Uncomplicated asthma, unspec ified asthma severity, unspecified whether persistent ([facility]) 04/11/2019 Afib ([facility]) 08/11/2015 Overview (04/11/2019): Secondary to central line placement status post cardioversion Dyslipidemia 08/11/2015 Overview (04/11/2019): LD and triglycerides are at goal, HDL is at goal on Crestor. HTN (hypertension) 08/11/2015 Overview (04/11/2019): Controlled Obstructive sleep apnea 07/24/2015 Overview (04/11/2019): History of on CPAP, managed by Dr. Inman Other diseases of vocal cords 05/29/2015 Resolved Problems Problem Noted Date Diagnosed Date Resolved Date PSVT (paroxysmal supraventri cular tachycardia) ([facility]) 09/27/2019 12/31/2021 Inappropriate sinus tachycardia ([facility]) 03/23/2019 12/31/2021 DVT (deep venous thrombosis) ([facility]) 08/11/2015 12/31/2021 Overview (04/11/2019): History of and pulmonary emboli in the past, on plavix for this as per her primary md last dvt was in 2004 Edema 08/11/2015 06/05/2021 Overview (04/11/2019): Likely secondary to Cardizem resolved on spironolactone. Encounters Date Type Department Care Team Description 04/25/2024 Scan [facility] INFO SRVCS Scanned, Doc [facility] Lab (SCAN) from Last 3 Months Immunizations Immunization Administration Dates Next Due Abrysvo Respiratory Syncytia l Virus (RSV) 0.5 mL, PF 11/22/2022 Afluria 36 MONTHS+ (Prefille d Syringe IIV4) 10/28/2018 Fluarix 11/20/2014 Flucelvax 2 YRS+ (Multi-Dose Vial) 01/25/2019 Fluzone Quad 3 Yrs+ (5.0 mL Multi Dose Vial) 11/12/2019 Hib 06/07/2015 Hib (Prohibit) 06/07/2015 Influenza (Generic) 11/21/2023, 2,10/28/2018,2014 Influenza Adult (Generic) 11/22/2022,,11/17/2020,2019,01/25/2019,10/30/2017,10/31/2016,0 10/27/2016,11/30/2015,11/27/2015, 015,11/05/2013,12/11/2012 MODERNA COVID-19 (SALES OPERATIONS MANAGER MARGUERITE JAMILAH), MRNA, LNP-S, PF, 50 MCG/ 0.25 ML DOSE 06/08/2021 Pneumococcal (Pneumovax 23) 01/18/2020 Pneumococcal (Prevnar 13) 12/31/2014 Shingrix 05/25/2020,01/20/2020 Family History Medical History Relation Comments Arthritis Father Asthma Father Cancer Father Prostate Heart Disease Father Hyperlipidemia Father Hypertension Father Alcohol Abuse Mother Sober since 1981 Arthritis Mother Cancer Mother Heart Mother Heart Attack Mother Pacemaker Heart Disease Mother Hyperlipidemia Mother Hypertension Mother Osteoporosis Mother Vision loss Mother Macular Degenera tion Arthritis Sister 1 Asthma Sister 1 Hyperlipidemia Sister 1 Hypertension Sister 1 Alcohol Abuse Sister 2 Sober since 1981 Arthritis Sister 2 Arthritis Sister 3 Relation Status Comments Father Mother Alive Sister 1 Sister 2 Sister 3 Social History Tobacco Use Types Packs/Day Years Used Date Smoking Tobacco: Never Passive Smoke Exposure: Never Smokeless Tobacco: Never Tobacco Cessation:Counseling Given: Not Answered Alcohol Use Standard Drinks/Week Comments Never 0 (1 standard drink = 0.6 oz pur e alcohol) AUDIT-C Answer Date Recorded Frequency of Alcohol Consumption Never 04/11/2019 Average Number of Drinks Not on file 020 Frequency of Binge Drinking Not on file 03/26 PHQ-2 Answer Date Recorded Patient Health Questionnaire-2 Score 1 03/09/2023 Comments No Sex and Gender Information Value Date Recorded Sex Assigned at Not on file Legal Sex Female 7:15 PM CDT Gender Identity Not on file Sexual Orientation Not on file 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 fi le Last Filed Vital Signs Vital Sign Reading Time Taken Comments Blood Pressure 122/84 01/20/2024 1:12 PM FERMENTATION MANAGER Pulse 78 01/20/2024 1:12 PM FERMENTATION MANAGER Temperature 36.9 C (98.4 F) 01/20/2024 1:12 PM FERMENTATION MANAGER Respiratory Rate 16 01/20/2024 1:12 PM FERMENTATION MANAGER Oxygen Saturation 98% 01/20/2024 1:12 PM FERMENTATION MANAGER Inhaled Oxygen Concentration - - Weight 110.5 kg (243 lb 11.2 oz) 01/20/2024 1:12 PM FERMENTATION MANAGER Height 165.1 cm (5' 5 ) 01/20/2024 1:12 PM FERMENTATION MANAGER Body Mass Index 40.55 01/20/2024 1:12 PM FERMENTATION MANAGER Plan of Treatment Upcoming Encounters Date Type Department Care Team (Late st Contact Info) Description 08/01/2024 1:40 PM CDT Office Visit [facility] Family & Internal Medicine [place] [id number] [place] [address] Iker Haynes, [address] [place] [phone] Health Maintenance Due Date Last Done Comments Colorectal Cancer Screening Colonoscopy (10 Years) 12/04/2023 12/20/2008 PHQ-2 (Physician Wales) 02/24/2024 03/09/2023 COVID-19 Vaccine ( season) 2024 11/21/2023, 11/22/2022, 11/09/2021, Additional history exists Pneumococcal Vaccine: 50+ Years (3 of 3 - PPSV23 or PCV20) 01/17/2025 01/18/2020, 12/31/2014 Pneumococcal Vaccine: Pediatrics (0 to 5 Years) and At-Risk Patients (6 to 49 Years) (3 of 3 - PPSV23 or PCV20) 01/17/2025 01/18/2020, 12/31/2014 DTaP, Tdap and Td Vaccines (1 - Tdap) 02/23/2025 Postponed from 1978 (Per Provider Recommendation) Mammogram Screening 09/21/2025 09/22/2023, 09/22/2023, 09/10/2023, Additional history exists Hepatitis C 06/05/2056 Postponed from 1977 (Per Provider Recommendation) Zoster Vaccines Completed 05/25/2020, 01/20/2020 Dexa Scan (General) Completed 11/22/2022, RSV Immunization or 60+ Years Completed 11/22/2022 Meningococcal B Vaccine Aged Out No l onger eligible based on patient's age to complete this topic Meningococcal Vaccine Aged Out No nithin joanne eligible based on patient's age to complete this topic RSV Immunizations Under 20 Months Aged Out No longer eligible based on patient's age to complete this topic Procedures Procedure Name Priority Date/Time Associated Diagnosis Comments OUTSIDE LAB (SCAN ORDER) 04/25/2024 OUTSIDE LAB (SCAN ORDER) 04/25/2024 MAMMOGRAM GENERIC (SCAN ORDER) 09/22/2023 BONE DENSITY GENERIC (SCAN ORDER) 11/22/2022 COLONOSCOPY GENERIC (SCAN ORDER) Routine 12/20/2008 from Last 3 Months or Most Recently Relevant to Health Maintenance Results * OUTSIDE LAB (SCAN ORDER) (04/25/2024) Only the most recent of2 resultswithin the time period is included. 04/25/2024 [facility] Scanned SCANNING Final Resu lt * MAMMOGRAM GENERIC (SCAN ORDER) (09/22/2023) Anatomical Region Laterality Modality Other 09/22/2023 Result [facility] Scanned SCANNING Final Resu lt * BONE DENSITY GENERIC (11/22/2022) Anatomical Region Laterality Modality Other 11/22/2022 Result [facility] Scanned SCANNING Final Resu lt * COLONOSCOPY (12/20/2008) us Documents Scanned SCANNING Final Result [facility] from Last 3 Months or Most Recently Relevant to Health Maintenance Insurance [facility] AETNA AETNA Care Teams Pole Sander Operator Relationship Specialty Start Date End Date Iker Haynes DO [address] [place] [id number] PCP - General FAMILY PRACTICE 03/10/19
--- OUTSIDE RECORDS SUMMARY | 2024-06-07 11:24 | XMS_ITS | Referral Summary ---
Author Organization [facility] Address [address] [place] [address] Care Team Providers Care Telecommunications Project Manager Name Role Phone Irenedylonyuri Iker Sanjeev Primary Care Provide r Allergies Active Allergy Reactions Criticality Noted Date Comments Aspirin Hives Medium 08/02/2018 hives Fenofibrate Rash Medium 08/02/2018 rash Methylprednisolone Other (See comments) Low 019 IV Only Pravastatin Sodium Muscle pain Medium 08/02/2018 myalgias Simvastatin Muscle pain Medium 08/02/2018 myalgias Sulfa (Sulfonamide Antibiotics) Unknown 08/02/2018 Medications albuterol HFA (PROVENTIL HFA,VENTOLIN HFA,PROAIR HFA) 90 mcg/actuation inhaler every 4 (four) hours Active cholecalciferol (VITAMIN D-3) 2000 unit capsule 1 capsule (2,000 Units total) daily Active esomeprazole DR (NexIUM) 40 mg capsule 1 capsule (40 mg total) 2 (two) times a day Active fluticasone furoate-vilante roL (BREO ELLIPTA) 100-25 mcg/dose diskus inhaler daily Active levothyroxine sodium (TIROSINT) 112 mcg capsule daily Active magnesium oxide (MAG-OX) 400 mg (241.3 mg elemental magnesium) tablet 1 tablet (400 mg total) daily Active montelukast (SINGULAIR) 10 mg tablet 1 tablet (10 mg total) daily Active omalizumab (XOLAIR) 150 mg injection 1.2 mL (150 mg total) Active tiotropium bromide (SPIRIVA RESPIMAT) 1.25 mcg/actuation inhaler daily Active coenzyme Q10 200 mg capsule 1 capsule (200 mg total) daily Active multivitamin capsule Rx: Complete Multi-Vitamin - Tablet Chewable Active EPINEPHrine 0.3 mg/0.3 mL auto-injection syringe 0.3 mL (0.3 mg total) as needed Active omega 0-hyq-ivl-fish oil 1,000 mg (120 mg-180 mg) capsule 4 capsules (4,000 mg total) daily Active cyanocobalamin (Vitamin B-12) 1,000 mcg tablet Rx: Vitamin B 12 1000 MCG Lozenge Active calcium carbonate (CALCIUM 600 ORAL) Take by mouth 2 (two) times a day Active cetirizine (ZyrTEC) 10 mg tablet Take 1 tablet (10 mg total) by mouth daily Active folic acid (FOLVITE) 1 mg tablet Take 3 tablets (3 mg total) by mouth daily Active cloNIDine (CATAPRES) 0.1 mg tablet TAKE 1 TABLET(0.1 MG) BY MOUTH THREE TIMES DAILY NEEDED FOR HIGH BLOOD PRESSURE 90 tablet 6 0 Active methocarbamoL (ROBAXIN) 500 mg tablet Take 1 tablet (500 mg total) by mouth 3 (three) times a day As needed Active cromolyn (NASALCHROM) 5.2 mg/spray (4 %) nasal sprayIndication s:Allergic Rhinitis Administer 1 spray into each nostril 4 (four) times a day Active docosahexaenoic acid-epa 120-180 mg capsule 4,000 mg daily Activ e ibandronate (BONIVA) 150 mg tablet TAKE 1 TABLET BY MOUTH MONTHLY 3 Active triamcinolone (NASACORT) 55 mcg nasal inhaler Administer 2 sprays into affected nostril(s) daily Active spironolactone (ALDACTONE) 50 mg tablet Take 1 tablet (50 mg total) by mouth daily 90 tablet 3 3 Active diclofenac sodium (VOLTAREN) 1 % gel Apply 2 g topically 2 (two) times a day Active clopidogreL (PLAVIX) 75 mg tablet Take 1 tablet (75 mg total) by mouth daily 30 tablet 6 3 Active dilTIAZem XR (dilTIAZem CD) 240 mg 24 hr capsule Take 1 capsule (240 mg total) by mouth daily 30 capsule 6 3 Active rosuvastatin (CRESTOR) 10 mg tablet Take 1 tablet (10 mg total) by mouth daily 90 tablet 3 3 Active Active Problems Problem Noted Date Diagnosed Date Mixed hyperlipidemia 06/16/2022 Lower extremity edema 06/16/2022 On chronic clopidogrel therapy 12/11/2021 Pure hypercholesterolemia 06/04/2021 Elevated transaminase level 05/21/2020 PSVT (paroxysmal supraventricular tachycardia) 0 09/27/2019 Chest pain 09/27/2019 Inappropriate sinus tachycardia 03/23/2019 Paroxysmal atrial fibrillation 08/11/2015 Overview (08/25/2018): Secondary to central line placement status post cardioversion DVT (deep venous thrombosis) 08/11/2015 Overview (08/25/2018): History of and pulmonary emboli in the past, on plavix for this as per her primary md last dvt was in 2004 Dyslipidemia 08/11/2015 Overview (08/25/2018): LD and triglycerides are at goal, HDL is at goal on Crestor. Edema 08/11/2015 Overview (08/25/2018): Likely secondary to Cardizem resolved on spironolactone. Primary hypertension 08/11/2015 Overview (08/25/2018): Controlled Obstructive sleep apnea 07/24/2015 Overview (08/25/2018): History of on CPAP, managed by Dr. Inman Social History Tobacco Use Types Packs/Day Years Used Date Smoking Tobacco: Never Tobacco Cessation:Counseling Given: Not Answered Alcohol Use Standard Drinks/Week Comments Never 0 (1 standard drink = 0.6 oz pur e alcohol) AUDIT-C Answer Date Recorded Frequency of Alcohol Consumption Never 09/09/2018 Average Number of Drinks Not on file 019 Frequency of Binge Drinking Not on file 08/23 Personal Safety Answer Date Recorded Getting School Help Needed Not on file 02/08 Comments Unknown Sex and Gender Information Value Date Recorded Sex Assigned at Not on file Legal Sex Female 6:57 AM ACID PAINTER Gender Identity Female 03/16/2019 6:40 AM ACID PAINTER Sexual Orientation Not on file Last Filed Vital Signs Vital Sign Reading Time Taken Comments Blood Pressure 110/70 12/22/2022 3:45 PM CDT Pulse 83 12/22/2022 3:45 PM CDT Temperature 36.8 C (98.2 F) 01/05/2015 4:06 PM ACID PAINTER Respiratory Rate - - Oxygen Saturation 97% 12/22/2022 3:45 PM CDT Inhaled Oxygen Concentration - - Weight 115.6 kg (254 lb 12.8 oz) 12/22/2022 3:45 PM CDT Height 161.3 cm (5' 3.5 ) 12/11/2021 4:20 PM CDT Body Mass Index 44.43 12/11/2021 4:20 PM CDT Plan of Treatment Not on file Procedures Procedure Name Priority Date/Time Associated Diagnosis Comments HEPATITIS PANEL, ACUTE Routine 03/05/2019 10:11 AM ACID PAINTER Elevated transaminase level from Last 3 Months or Most Recently Relevant to Health Maintenance Results * Hepatitis panel, acute (03/05/2019 10:11 AM ACID PAINTER) Hep A IgM Negative Negative [facility] - 01 HepBsAg Negative Negative [facility] - 01 Hep B core IgM Negative Negative [facility] - 01 Hep C Ab <0.1 0.0 - 0.9 s/co ratio [facility] - 01 Comment: Negative: < 0.8 Indeterminate: 0.8 - 0.9 Positive: > 0.9 The CDC recommends that a positive HCV antibody result be followed up with a HCV Nucleic Acid Amplification test (285455). Blood specimen (specimen) 03/05/2019 10:11 AM ACID PAINTER 03/05/2019 Narrative [facility] - 03/06/2019 1:06 PM ACID PAINTER Performed at: [address] [place] [id number] Electrical Engineering Manager: Graham Goncalves PhD, Phone: [phone] us Tre Richard MD LAB MICROBIOLOGY - GENERAL O RDERABLES Final Result [facility] - 01 from Last 3 Months or Most Recently Relevant to Health Maintenance Insurance [facility] [employer] PL[employer] CHOICE PLUS Advance Directives For more information, please contact: [phone] Documents on File Type Date Recorded Patient Accounting Methods Analyst Expl anation ADVANCE DIRECTIVE 02/03/2011 12:00 AM [facility] ING WILL ADVANCE DIRECTIVE 02/03/2011 12:00 AM POW ER OF RESEARCH DAIRY FARM SUPERVISOR FINANCIAL/MEDICAL Care Teams Telecommunications Project Manager Relationship Specialty Start Date End Date Iker Haynes DO PCP - General Family Medicine 03/23/19
--- OUTSIDE RECORDS SUMMARY | 2024-06-07 11:24 | XMS_ITS | Encounter Summary ---
Author Organization [facility] Care Team Providers Care College Basketball Coach Name Role Phone Korey Dorman MD Primary Care Provider [phone] Iker Haynes DO Primary Care Provide r Encounter Details Date Type Department Care Team (Latest Contact Info) Description 05/18/2017 Orders Only [facility]INCON[facility] ProviderMague MD [address] [place] [id number] Social History Tobacco Use Types Packs/Day Years Used Date Smoking Tobacco: Never Assessed Comments Unknown Sex and Gender Information Value Date Recorded Sex Assigned at Not on file Legal Sex Female 6:57 AM ELECTRIC METER REPAIRER HELPER Gender Identity Female 03/16/2019 6:40 AM ELECTRIC METER REPAIRER HELPER Sexual Orientation Not on file documented as of this encounter Plan of Treatment Not on file documented as of this encounter Procedures Procedure Name Priority Date/Time Associated Diagnosis Comments PROCEDURE - RESULT 05/18/2017 12 :00 AM CDT documented in this encounter Results * PROCEDURE - RESULT (05/18/2017 12:00 AM CDT) Narrative 05/18/2017 12:00 AM CDT Ordered by an unspecified provider. Historical Provider Final Res ult documented in this encounter Visit Diagnoses Not on filedocumented in this encounter Care Teams College Basketball Coach Relationship Specialty Start Date End Date Korey Dorman MD [address] [place] [address] PCP - General Family Medicine 06/16/18 03/22/19 Iker Haynes DO [address] [place] [address] PCP - General Family Medicine 03/23/19 documented as of this encounter
--- OUTSIDE RECORDS SUMMARY | 2024-06-07 11:24 | XMS_ITS | Encounter Summary ---
Author Organization [facility] Address [address] [place] [address] Care Team Providers Care Bicycle Messenger Name Role Phone Iker Haynes DO Primary Care Provider + Encounter Details Date Type Department Care Team (Late st Contact Info) Description 02/25/2022 VidAngel Message Enc [facility] Group Family & Internal Medicine [facility] [address] [place] [address] Iker Haynes DO [address] [place] [address] Covid stomach issues Social History Tobacco Use Types Packs/Day Years [...] Progress Notes * Iker Haynes DO - 02/25/2022 4:12 PM CST Try Immodium OTC for 2-3 days and try full liquid diet to see if this helps. Likely from the medication. NESS EXCELLENCE MANAGER documented in this encounter Plan of Treatment Upcoming Encounters Date Type Department Care Team (Late st Contact Info) Description 08/01/2024 1:40 PM CDT Office Visit [facility] Medical Group Family & Internal Medicine - [address] [address] Iker Haynes DO [address] [place] [phone] documented as of this encounter Visit Diagnoses Not on filedocumented in this encounter Additional Health Concerns Assessment Noted Time PHQ-9 Depression Total Score: 0 04/11/19 20 1:04 PM BUSINESS EXCELLENCE MANAGER documented as of this encounter Care Teams Bicycle Messenger Relationship Specialty Start Date End Date Iker Haynes DO [address] [place] [id number] PCP - General FAMILY PRACTICE 03/10/19 documented as of this encounter
--- OUTSIDE RECORDS SUMMARY | 2024-06-07 11:24 | XMS_ITS | Clinical Summary ---
Author Organization [facility] Address [address] [place] [address] Care Team Providers Care Powerhouse Attendant Name Role Phone Irenedylonyuri Iker Sanjeev Primary [...] (0.3 mg total) as needed Active omega 9-rbr-gkw-fish oil 1,000 mg (120 mg-180 mg) capsule [...] of on CPAP, managed by Dr. Inman Family History Medical History Relation Name Comments Heart attack Father Heart disease Father Hyperlipidemia Father Heart disease Mother Hyperlipidemia Mother Hypertension Mother Hyperlipidemia Sister Hypertension Sister Relation Name Status Comments Father Mother Alive Sister Alive Social History Tobacco Use Types Packs/Day Years [...] on file Legal Sex Female 6:57 AM MEDICAL LABORATORY SPECIALIST Gender Identity Female 03/16/2019 6:40 AM MEDICAL LABORATORY SPECIALIST Sexual Orientation Not on file Obstetrics History Last Filed Vital Signs Vital Sign Reading Time Taken Comments Blood Pressure 110/70 12/22/2022 3:45 PM CDT Pulse 83 12/22/2022 3:45 PM CDT Temperature 36.8 C (98.2 F) 01/05/2015 4:06 PM MEDICAL LABORATORY SPECIALIST Respiratory Rate - - Oxygen Saturation 97% 12/22/2022 3:45 PM CDT Inhaled Oxygen Concentration - - Weight 115.6 kg (254 lb 12.8 oz) 12/22/2022 3:45 PM CDT Height 161.3 cm (5' 3.5 ) 12/11/2021 4:20 PM CDT Body Mass Index 44.43 12/11/2021 4:20 PM CDT Plan of Treatment Health Maintenance Due Date Last Done Comments Breast Cancer Screening-Mammogram 1960 Cervical Cancer Screening 1960 Colon Cancer Screening-Colonoscopy 1960 Depression Screening 1959 Fall Risk Assessment 1960 Osteoporosis Screening-Bone Density Scan 1959 DTaP/Tdap/Td Vaccine (1 - Tdap) 1970 Hepatitis B Screening 1977 Influenza Vaccine (#1) 2023 2, 11/17/2020, 11/12/2019, Additional history exists Well Visit 65+ 2024 Pneumococcal vaccine 65+ (3 of 3 - PCV20 or PCV21) 01/17/2025 01/18/2020, 12/31/2014, 02/23/2014, Additional history exists Hepatitis C Screening Completed 03/05/2019, 019 Zoster Vaccine Completed 05/25/2020, 01/20/2020 Procedures Procedure Name Priority Date/Time Associated Diagnosis Comments HEPATITIS PANEL, ACUTE Routine 03/05/2019 10:11 AM MEDICAL LABORATORY SPECIALIST Elevated transaminase level from Last 3 Months or Most Recently Relevant to Health Maintenance Results * Hepatitis panel, acute (03/05/2019 10:11 AM MEDICAL LABORATORY SPECIALIST) Hep A IgM Negative Negative [facility] - [...] with a HCV Nucleic Acid Amplification test (101161). Blood specimen (specimen) 03/05/2019 10:11 AM MEDICAL LABORATORY SPECIALIST 03/05/2019 Narrative [facility] - 03/06/2019 1:06 PM MEDICAL LABORATORY SPECIALIST Performed at: [facility] [id number] Evaporator: Graham Goncalves PhD, Phone: [phone] us Tre Richard MD LAB MICROBIOLOGY - GENERAL O RDERABLES Final Result [facility] - 01 from Last 3 Months or Most Recently Relevant to Health Maintenance Insurance [facility]/PPO Address: [facility] [address] [place] [id number] [facility]/PPO Address: [place] [address] Advance Directives For more information, please contact: [phone] Documents on File Type Date Recorded 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
--- OUTSIDE RECORDS SUMMARY | 2024-06-07 11:24 | XMS_ITS ---
Author Organization [facility] Address [address] [place] [address] Care Team Providers Care Business Banker Name Role Phone Iker Haynes Primary Care Provider Dusty Arias Unavailable [phone] Storm Chen MD, Cachorro Unavailable Lavern vailable REASON FOR VISIT Xolair SP PA Encounters Encounter Location Date Provider Diagnosis [facility] [address] [place] [address] 05/10/2024 Dusty Vuong Plan Of Treatment Next Appt Details Provider Name:Dusty chan, 06/07/2024 12:30:00 PM, [address], [address], [place], [address], Provider Name:Senthil Padron , 06/28/2024 04:30:00 PM, [address], [address], [place], [address], Progress Notes * Sonia COBB RDOB:1960 (64 yo F)Acc No.[id number]:05/10/2024 Patient: Sonia RIVERO :1960 A ge:64 Y S ex:Female Address:[address], [place], [address] * true * Date: Generated for Joan meza/Isiah/Delphineitting on: 0 06/07/2024 11:24 AM CDT
--- OUTSIDE RECORDS SUMMARY | 2024-06-07 11:24 | XMS_ITS | Encounter Summary ---
Author Organization [facility] Facility Care Team Providers Care Metal Burrer Name Role Phone Korey Dorman MD Primary Care Provider [phone] Iker Haynes DO Primary Care Provide r Encounter Details Date Type Department Care Team (Latest Contact Info) Description 09/06/2015 Orders Only [facility] ProviderMague MD [address] [place] [id number] Social History Tobacco Use Types Packs/Day Years Used Date Smoking Tobacco: Never Assessed Comments Unknown Sex and Gender Information Value Date Recorded Sex Assigned at Not on file Legal Sex Female 6:57 AM RESIDENTIAL PROGRAM WORKER Gender Identity Female 03/16/2019 6:40 AM RESIDENTIAL PROGRAM WORKER Sexual Orientation Not on file documented as of this encounter Plan of Treatment Not on file documented as of this encounter Procedures Procedure Name Priority Date/Time Associated Diagnosis Comments PROCEDURE - RESULT 09/12/2015 12 :00 AM CDT documented in this encounter Results * PROCEDURE - RESULT (09/12/2015 12:00 AM CDT) Narrative 09/12/2015 12:00 AM CDT Ordered by an unspecified provider. Historical Provider Final Res ult documented in this encounter Visit Diagnoses Not on filedocumented in this encounter Care Teams Metal Burrer Relationship Specialty Start Date End Date Korey Dorman MD [address] [place] [address] PCP - General Family Medicine 06/16/18 03/22/19 Iker Haynes DO [address] [place] [address] PCP - General Family Medicine 03/23/19 documented as of this encounter
--- OUTSIDE RECORDS SUMMARY | 2024-06-07 11:24 | XMS_ITS | Encounter Summary ---
Author Organization [facility] Facility Care Team Providers Care Holistic Nutritionist Name Role Phone Korey Dorman MD Primary Care Provider [phone] Iker Haynes DO Primary Care Provide r Encounter Details Date Type Department Care Team (Latest Contact Info) Description 07/12/2015 Orders Only [facility]INCONV Provider, MD Mague [address] [place] [address] Social History Tobacco Use Types Packs/Day Years Used Date Smoking Tobacco: Never Assessed Comments Unknown Sex and Gender Information Value Date Recorded Sex Assigned at Not on file Legal Sex Female 6:57 AM DIALYSIS TECHNICIAN Gender Identity Female 03/16/2019 6:40 AM DIALYSIS TECHNICIAN Sexual Orientation Not on file documented as of this encounter Plan of Treatment Not on file documented as of this encounter Procedures Procedure Name Priority Date/Time Associated Diagnosis Comments SCAN - LABS 07/30/2015 12:00 AM CDT SCAN - LABS 07/13/2015 12:00 AM CDT documented in this encounter Results * SCAN - LABS (07/30/2015 12:00 AM CDT) Narrative 07/30/2015 12:00 AM CDT Ordered by an unspecified provider. Historical Provider Final Res ult * SCAN - LABS (07/13/2015 12:00 AM CDT) Narrative 07/13/2015 12:00 AM CDT Ordered by an unspecified provider. us Historical Provider Final Res ult documented in this encounter Visit Diagnoses Not on filedocumented in this encounter Care Teams Holistic Nutritionist Relationship Specialty Start Date End Date Korey Dorman MD [address] [place] [address] PCP - General Family Medicine 06/16/18 03/22/19 Iker Haynes DO [address] [place] [address] PCP - General Family Medicine 03/23/19 documented as of this encounter
--- OUTSIDE RECORDS SUMMARY | 2024-06-07 11:24 | XMS_ITS | Continuity of Care Document ---
Author Organization [facility], [facility] Address [address] 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 WBC 6.4, hemoglobin 14.4, hematocrit 44.0, platelet count 200, glucose 98, BUN 16, creatinine 0.95, EGFR 65, sodium 139, potassium 4.8, chloride 101, carbon dioxide 23, calcium 9.5, protein 6.7, albumin 4.4, globulin 2.3, bilirubin 0.4, alkaline phosphate 51, AST 26, ALT 23, cholesterol 157, triglycerides 183, HDL 34, LDL 91. Labs completed on 05/02/2023 WBC 7.6, Hgb 14.4, Platelets 210, Glucose(105), BUN 17, Creatinine(1.08), Sodium 141, Potassium 4.6, Chloride 99, Co2 26, Calcium 10.1, Protein 7.3, albumin 4.6, Bilirubin 0.4, Alk Phos 62, AST(45), ALT(63), Cholesterol 149, Trig(220), HDL(32), LDL 80 ECG done on 06/06/2024 shows normal sinus rhythm rate of 77 beats per minute, possible old inferior infarction, poor R-wave progression can not rule out old anterior infarction, compared to the previous EKG done 03/23/2023 T-wave abnormalities no longer seen and sinus arrhythmias no longer seen. ASSESSMENT Sinus tachycardia - R00.0, Controlled on diltiazem Afib - I48.91, Secondary to central line placement status post cardioversion without re occurrence so not on anticoagulation PSVT (paroxysmal supraventricular tachycardia) - I47.1, History of attempted radiofrequency ablation which was unsuccessful in the past HTN (hypertension) - I10, Controlled, Transaminitis, mildly elevated, is not high enough to stop her statin with hepatic steatosis with a negative hepatitis panel with no other liver pathology noted on ultrasound of the right upper quadrant in August of 2018, toño due ot acetaminophen use for her back pain and does not use ETOH. Hepatic steatosis by right upper quadrant ultrasound on 09/11/2018 with elevated liver transaminases, not high enough to stop her statin Mixed hyperlipidemia- E78.2, LDL is at goal, triglycerides are mildly elevated and HDL is low on Crestor 10 mg daily. Edema - R60.9, Likely secondary to Cardizem which she requires to control her sinus tachycardia resolved on spironolactone. Asthma, moderate persistent - J45.40, Triggered by environmental allergens/sinus infections Obstructive sleep apnea - G47.33, History of on CPAP, managed by Dr. Inman Laryngeal spasm - J38.5, /Tracheitis/angioe lizette controlled on Xolair and treatment of her reflux, managed by a doctor Padron, of the immunology service. Hypothyroidism - E03.9, On supplementation with elevated TSH, managed by Dr. 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 Padron, avoiding beta blockers DVT (deep venous thrombosis) - I82.409, History of and pulmonary emboli in the past, on plavix for this as per her primary md, last dvt was in 2003 Immune deficiency disorder - D84.9, With mildly diminished IgG evaluated by immunology Pulmonary embolism - I26.99, in 2003 without recurrence completed her course of anticoagulation, this was a provoked pulmonary embolism after she had a fracture in her leg from a DVT and she was worked up by Oncology and did not have a hypercoagulable condition. Aspirin allergy?, placed on plavix elsewhere she tells me they put her on it after her pulmonary embolism. After completing her anticoagulation course, however she can take ibuprofen without any allergy. Plan: I recommend a Heart healthy diet which is low in fat, low in cholesterol and low in sodium. I asked her to limit her acetaminophen use. I will have her recheck her liver profile again in about 6 weeks to be sure it is stable or improved with her being on rosuvastatin and having mildly elevated liver transaminases. I asked her to continue on coenzyme Q10 200 mg daily, diltiazem CD 240 mg daily, magnesium oxide 400 mg daily, rosuvastatin 10 mg daily, spironolactone 50 mg daily. I asked her to return in 6 month assuming her liver transaminases are stable or improved and we will plan to obtain a fasting lipid profile and a complete metabolic profile prior to her follow-up visit. If she needs a mastectomy I asked her to call me and will schedule her for a lexiscan myoview stress test. I asked her return sooner if she has any cardiac issues or problems were recurring chest pain. CARDIOLOGY TESTING: ECHOCARDIOGRAM Report: ECHO: 03/27/07 normal left ventricular cavity size. normal size left atrium. normal aortic root. aortic valve appears to have adequate systolic separation of cusps. Mitral valve structurally normal. LEXISCAN MYOVIEW STRESS TEST 09/30/2019 which showed no significant Lexiscan induced ischemic EKG changes. Since this study was fairly well tolerated. Her Myoview images showed no evidence of ischemia or infarction of left ventricle normal left ventricular cavity size, wall motion and calculated left ventricular systolic ejection fraction of 79%. STRESS TEST Report: NUCLEAR STRESS TEST: 05/31/07 Negative stress test with mild exercise impairment. [email or web address] Not available 06/06/2024 11:24:34 Plan of Treatment Reminders Order Date Submit Date Provider Last Modified By Organization Details Last Modified Time Details Appointments ANY 15 2024 11:00A Diony Richard MD Not available Not available Not available Lab [facility], serum [email or web address], [address] [facility] [address], [place], [address], 06/06/2024 11:23:14 CMP, serum or plasma 2024 025 [email or web address] [facility], [address] [facility] [address], [place], [address], 06/06/2024 11:23:14 hepatic function panel, serum 2024 025 [email or web address] [facility], [address] [facility] [address], [place], [address], 06/06/2024 11:23:14 Referral None recorded. Procedures None recorded. Surgeries None recorded. Imaging electroca rdiogram 2024 025 [email or web address] In-Office Order, Internal Use Only DO Not Attach Compendium DO Not Attach Compendium, Do Not Delete/merge, [id number] 06/06/2024 11:23:14 Medication Orders None recorded. Patient TargetsNo targets recorded. Patient Instructions Encounter Date Encounter Id Patient Instructions Last Modified By Organization Details Last Modified Time 06/06/2024 [id number] A healthy lifestyle: care instructions [email or web address] Not available 06/06/2024 11:23:14 Reason for Referral None Reported. Results Created Date Observation Date Name Description Value Unit Range Abnormal Flag Note LastModifiedBy Organization Detail LastModifiedTime 06/07/1906/06/2024 elect rocar diogr am No observ ation record ed. SERGE In-Office Order Internal Use Only DO Not Attach Compendium DO Not Attach Compendium, Do Not Delete/merge, [id number] 06/06/2024 11:35:10 06/07/19 elect rocar diogr am No observ ation record ed. [email or web address] Not Available 06/06 11:35:10 Result Notes None recorded. Problems Name Problem SNOMED Code Status Onset Date Resolution Date Notes Provider Name and Address Organization Details Recorded Time Bilateral lower leg edema 423048872 Active 2023 Tre Richard MD Attn: Margo g,[address] [facility], [place], [address], [place] - [facility] 4 16:31:54 Mixed hyperlipidemia 140596706 Active 2023 Tre Richard MD Attn: Margo wilkins,[address] [facility], [place], [address], [place] - [facility] 4 16:31:55 Essential hypertension 28887317 Active 2023 Tre Richard MD Attn: Margo wilkins,[address] [facility], [place], [address], [place] - [facility] 4 16:31:55 Paroxysmal supraventricul ar tachycardia 27865587 Active 2023 Tre Richard MD Attn: Margo wilkins,[address] [facility], [place], [address], [place] - [facility] 4 16:31:59 Sinus tachycardia 58762566 Active 2023 Tre Richard MD Attn: Margo wilkins,[address] [facility], [place], [address], [place] - [facility] 4 16:32:00 Liver enzymes level above reference range 632862448 Active 2024 Tre Richard MD Attn: Margo wilkins,[address] [facility], [place], [address], [place] - [facility] 5 11:04:12 Problem Notes None recorded. Procedures Surgical History Date Name Laterality Status Provider Name and Address Organization Details Recorded Time Breast Surgery completed Diego Kruger [place] - [facility] 11/19/2023 16:02:13 Imaging Results Imaging Date Name Status LastModified by Organization Details LastModified Time 06/06/2024 electrocardiogram completed SERGE In-Offi ce Order Internal Use Only DO Not Attach Compendium DO Not Attach Compendium, Do Not Delete/merge, [id number] 06/06/2024 11:35:10 Procedure Notes None recorded. Medical Equipment None Reported. Allergies Allergen ID Allergen Name Allergen Category Reaction Reaction Severity Criticality Documentation Date Start Date Code Code System Note Provider Name and Address Organization Details Recorded Time 698768 Substance with sulfonami de structure and antibacte rial mechanism of action (substanc e) medicatio n hives Not available Not available 05/20/2023 00052 8003 SNOMED Not Available Not Available Not Available Medications Name Sig Start Date Stop Date Status Note LastModified by Organization Details LastModified Time methocarbam ol 500 mg tablet TAKE 1 TABLET BY MOUTH THREE TIMES A DAY FOR 90 DAYS active Not Available Not Available No t Available anastrozole 1 mg tablet TAKE 1 TABLET BY MOUTH EVERY DAY 06/06 completed Not Available Not Available Not Available nystatin 100,000 unit/mL oral suspension TAKE 5 MILLILITE RS (500,000 UNITS TOTAL) BY MOUTH 4 (FOUR) TIMES DAILY FOR 10 DAYS. 11/18 completed Not Available Not Available Not Available albuterol sulfate 2.5 mg/3 mL (0.083 %) solution for nebulizatio n NEEDED active Not Available Not Available No t Available diltiazem ER (XR/XT) 240 mg capsule,ext ended release 24 hr, controlled 05/31 completed Not Available Not Available Not Available fluconazole 150 mg tablet TAKE 1 TABLET (150 MG TOTAL) BY MOUTH ONCE FOR 1 DOSE. REPEAT IN 72 HOURS IF NEEDED 11/18 completed Not Available Not Available Not Available diltiazem CD 240 mg capsule,ext ended release 24 hr TAKE 1 CAPSULE DAILY active Not Available Not Available No t Available prednisone 20 mg tablet TAKE 3 TABLETS BY MOUTH ONCE DAILY FOR 5 DAYS 11/18 completed Not Available Not Available Not Available alendronate 70 mg tablet TAKE 1 TABLET WEEKLY active Not Available Not Available No t Available penicillin V potassium 500 mg tablet TAKE 1 TABLET BY MOUTH 4 TIMES A DAY UNTIL GONE 06/06 completed Not Available Not Available Not Available Nexium 40 mg capsule,del ayed release Take 1 capsule every day by oral route. 11/18 completed Not Available Not Available Not Available clopidogrel 75 mg tablet TAKE 1 TABLET DAILY 06/06 completed Not Available Not Available Not Available tramadol 50 mg tablet PRN 06/06 completed Not Available Not Available Not Available lorazepam 0.5 mg tablet TAKE 2 TABLETS BY MOUTH 1 HOUR PRIOR TO PROCEDURE AND TAKE 1 TABLET IMMEDIATE LY PRIOR TO PROCEDURE . 11/18 completed Not Available Not Available Not Available levothyroxi ne 125 mcg tablet TAKE 1 TABLET BY MOUTH EVERY MORNING active Not Available Not Available No t Available montelukast 10 mg tablet Take 1 tablet every day by oral route. active Not Available Not Available No t Available azelastine 137 mcg (0.1 %) nasal spray SPRAYS 2 SPRAYS INTO EACH NOSTRIL TWICE DAILY active Not Available Not Available No t Available methylpredn isolone 4 mg tablets in a dose pack FOLLOW PACKAGE DIRECTION S 11/18 completed Not Available Not Available Not Available albuterol sulfate HFA 90 mcg/actuati on aerosol inhaler NEEDED active Not Available Not Available No t Available metformin ER 500 mg tablet,exte nded release 24 hr 11/18 completed Not Available Not Available Not Available tamoxifen 20 mg tablet TAKE 1 TABLET BY MOUTH DAILY 06/06 completed Not Available Not Available Not Available spironolact one 50 mg tablet TAKE 1 TABLET DAILY active Not Available Not Available No t Available levothyroxi ne 112 mcg tablet 11/18 completed Not Available Not Available Not Available amoxicillin 875 mg-potassiu m clavulanate 125 mg tablet TAKE 1 TABLET BY MOUTH EVERY 12 HOURS FOR 10 DAYS 11/18 completed Not Available Not Available Not Available esomeprazol e magnesium 20 mg capsule,del ayed release Take 1 capsule every day by oral route. active Not Available Not Available No t Available magnesium 200 mg tablet Take 1 tablet every day by oral route. active Not Available Not Available No t Available Co Q-10 100 mg capsule Take 1 capsule every day by oral route. active Not Available Not Available No t Available rosuvastati n 10 mg tablet TAKE 1 TABLET DAILY active Not Available Not Available No t Available Boniva 150 mg tablet Take 1 tablet every month by oral route. 11/18 completed Not Available Not Available Not Available tramadol ER 200 mg tablet,exte nded release 24 hr TAKE 1 TABLET BY MOUTH EVERY DAY FOR 30 DAYS active Not Available Not Available No t Available olopatadine 0.6 % nasal spray SPRAY 2 SPRAY(S) IN EACH NOSTRIL TWICE DAILY 11/18 completed Not Available Not Available Not Available Breo Ellipta 100 mcg-25 mcg/dose powder for inhalation INHALE 1 PUFF ONCE DAILY active Not Available Not Available No t Available naloxone 4 mg/actuatio n nasal spray USE 1 SPRAY INTRANASA LLY ONCE FOR OVERSEDAT ION, REPEAT IN 2-3 MINUTES IF NEEDED 2 DOSES active Not Available Not Available No t Available Trelegy Ellipta 100 mcg-62.5 mcg-25 mcg powder for inhalation INHALE 1 PUFF BY MOUTH ONCE DAILY 06/06 completed Not Available Not Available Not Available Xolair 150 mg/mL subcutaneou s syringe NEEDED active Not Available Not Available Not Available Paxlovid 300 mg (150 mg x 2)-100 mg tablets in a dose pack PLEASE SEE ATTACHED FOR DETAILED DIRECTION S 11/18 completed Not Available Not Available Not Available Paxlovid 150 mg-100 mg tablets in a dose pack (Renal Dose) TAKE DIRECTED ON PACKAGE 05/19 completed Not Available Not Available Not Available Vitals Date Recorded Body height Provider Name an d Address Organization Details Last Updated DateTime 06/06/2024 162.56 cm Natasha Golden MA [facility] 025 10:33:39 Date Recorded Body mass index (BMI) Body weight Heart rate Oxygen saturation Oxygen saturation in Arterial blood by Pulse oximetry Systolic blood pressure Diastolic blood pressure Provider Name and Address Organization Details Last Updated DateTime 42.3 kg/m2 184957. 88 g 90 /min 98 % 98 % 126 mm[Hg] 74 mm[Hg] Diego Kruger MA [facility] 5 10:47:22 Social History Question Answer Notes LastModified by Organizat ion Details LastModified Time Tobacco Smoking Status Never Smoker Tiburcio Jernigan MA null, [facility] 05/20/2023 14:01:52 What Was The Date Of Your Most Recent Tobacco Screening? 06/06/2024 Information not available 06/06/2024 Do You Use Any Illicit Or Recreational Drugs? No Information not available 06/06/2024 Do You Or Have You Ever Used Any Other Forms Of Tobacco Or Nicotine? No Information not available 06/06/2024 Sex: Female Functional Status None recorded. Mental Status None recorded. Family History Nothing Reported. Medical History No medical history recorded. Gynecological HistoryNo gynecological history recorded. Obstetrics History GPAL:G 0 P 0 0 0 0 Past Encounters Encounter ID Performer Location Encounter Start Date Encounter Closed Date Diagnosis/Indication Diagnosis SNOMED-CT Code Diagnosis ICD10 Code Diagnosis Note [id number] Tre Richard MD [facility] [place] [facility] [address] [place] [address] 06/06/2024 10:31:46 06/06/2024 11:24:53 Morbid obesity 876313975 E66.01 Essential hypertension 55548103 I10 Sinus tachycardia 687750 01 R00.0 Paroxysmal supraventricular tachycardia 56267366 I47.10 Mixed hyperlipidemia 267 525404 E78.2 Bilateral lower leg edema 595806262 R60.0 Liver enzy mes level above reference range 650027871 R74.01 Health Concerns Section Related Observation LastModified by Organization Detai ls LastModified Time None Recorded Concern Status LastModified by Organization Details LastModified Time None Recorded Payers Encounter Date Sequence Insurance Name Policy Number Policy Girard Covered Member ID Girard Member ID Guarantor Name 06/06/2024 1 [employer] - CHOICE (POS II) [id number] Sonia Reynoso [id number] Sonia Reynoso Notes Date Note Type Note Provider Name and Address Organization Details Recorded Time 06/06/2024 text/html Sonia is a 64-year-old female who returns for follow-up visit. She was told she had a lump found in her right breast and is going to have a left breast and right breast biospy. She still has back pain on scheduled tramadol and did see a neurosurgeon in the past regarding her back who felt that the risks outweighed the benefits to surgery. She has not been riding her bike of late but is doing stretching exercises for her back as taught to her by PT. She continues to walk with a walker due to her chronic lower back pain with no falls. She has not noticed any palpitations of late on diltiazem. She has not required any clonidine due to her blood pressures being under control. She has not been very good at watching her carbs and her weight is up 5 pounds since her last visit about 6 months ago but remains down 10 pounds over the past 14 pounds. She is compliant with her medications. She denies any side effects from their medications. She denies any paroxysmal nocturnal dyspnea, orthopnea, presyncope, syncope or pedal edema. Tre Richard MD Attn: [address] [facility], [place], [address], [facility] 06/06/2024 11:24:49 OBGyn Episode No OBEpisode recorded.
--- OUTSIDE RECORDS SUMMARY | 2024-06-07 11:24 | XMS_ITS | Clinical Summary ---
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 90 Tablet 11/25/2022 4:43 PM CDT 10/21/19 23 Active fluticasone furoate-vilanter oL (Breo Ellipta) 100-25 mcg/dose Disk with Device USE 1 INHALATION BY MOUTH DAILY 180 Each 10/21/2022 4:52 PM CDT 10/22/19 23 Active spironolactone (ALDACTONE) 50 mg tablet Take 1 Tablet (50 mg) by mouth daily. 90 Tablet 3 05/16/2023 4:54 PM CDT 11/25/19 23 Active diltiaZEM (DILACOR XR) 240 mg Extended Release capsule Take 1 Capsule (240 mg) by mouth daily. 30 Capsule 6 05/16/2023 4:54 PM CDT 12/23/19 23 Active rosuvastatin (CRESTOR) 10 mg tablet Take 1 Tablet (10 mg) by mouth daily. 90 Tablet 3 05/16/2023 4:54 PM CDT 02/10/20 23 Active albuterol (PROVENTIL,SUSAN SERG) 2.5 mg /3 mL (0.083 %) Solution for Nebulization Inhale the contents of 1 vial per nebulizer every 6 hours. 90 mL 1 02/18/2023 11:21 AM [employer] 02/19/20 23 Active methocarbamoL (ROBAXIN) 500 mg tablet Take 1 Tablet (500 mg) by mouth 3 times daily as needed. 90 Tablet 02/18/2023 11:21 AM [employer] 02/19/20 23 Active alendronate (FOSAMAX) 70 mg tablet Take 70 mg by mouth every 7 days. Active cetirizine (ZyrTEC) 10 mg tablet Take 10 mg by mouth daily. Active cyanocobalamin 1,000 mcg Tablet Rx: Vitamin B 12 1000 MCG Lozenge Active diclofenac sodium (VOLTAREN) 1 % gel Apply 2 Grams to affected area 2 times daily. Active EPINEPHrine (EPIPEN JR) 0.15 mg/0.3 mL Auto-Injector Inject 0.15 mg by intramuscular injection one time only. Active folic acid (FOLVITE) 1 mg tablet Take 3 mg by mouth daily. Active magnesium oxide (MAG-OX) 400 mg (241.3 mg magnesium) tablet Take 400 mg by mouth daily. Active Xolair 150 mg/mL Syringe Inject 150 mg by subcutaneous injection. Active triamcinolone acetonide (Nasacort) 55 mcg nasal spray 2 spray(s) intranasally qday - BID for 30 day(s) Active coenzyme Q10 100 mg Capsule Take 100 mg by mouth daily. Active multivitamin (DAILY-HAMILTON) tablet Take 1 Tablet by mouth daily. Active Active Problems No known active problems Encounters Date Type Department Care Team Description 05/25/2024 Telephone [facility] Oncology and Hematology - [place] [address] [place] [phone] Kush Ruiz MD Follow UP Appointment 05/11/2024 External Device Data [facility] Provider, Abstract 05/03/2024 External Device Data [facility] Provider, Abstract 05/03/2024 External Device Data [facility] Provider, Abstract 04/30/2024 External Device Data [facility] Provider, Abstract 04/29/2024 External Device Data [facility] Provider, Abstract 04/27/2024 External Device Data [facility] Provider, Abstract 04/27/2024 External Device Data [facility] Provider, Abstract 04/26/2024 Orders Only [facility] On[facility] H[facility]ology [place] [address] [place] [address] Kush Ruiz MD 04/25/2024 2:00 PM [employer] Office Visit [facility] Oncology and H[facility]ology [facility] [address] [place] [address] Kush Ruiz MD Atypical ductal hyperplasia of breast (Primary Dx) 04/22/2024 Orders Only [facility] Oncology and Hematology - [place] [address] [place] [phone] Kush Ruiz MD Atypical ductal hyperplasia of breast (Primary Dx) 2024 External Device Data [facility] Provider, Abstract 03/16/2024 External Device Data [facility] Provider, Abstract 03/16/2024 External Device Data [facility] Provider, Abstract 03/09/2024 External Device Data [facility] Provider, Abstract from Last 3 Months Social History Tobacco Use Types Packs/Day Years Used Date Smoking Tobacco: Never Tobacco Cessation:Counseling Given: Not Answered Alcohol Use Standard Drinks/Week Comments Not Currently 0 (1 standard drink = 0.6 oz pur e alcohol) stopped at 20 Comments Unknown Sex and Gender Information Value Date Recorded Sex Assigned at Not on file Legal Sex Female 12:59 PM CDT Gender Identity Not on file Sexual Orientation Not on file Last Filed Vital Signs Vital Sign Reading Time Taken Comments Blood Pressure 111/73 04/25/2024 2:39 PM [employer] Pulse 87 04/25/2024 2:39 PM [employer] Temperature 36.4 C (97.5 F) 04/25/2024 2:39 PM [employer] Respiratory Rate 15 04/25/2024 2:39 PM [employer] Oxygen Saturation 96% 04/25/2024 2:39 PM [employer] Inhaled Oxygen Concentration - - Weight 111.5 kg (245 lb 12.8 oz) 04/25/2024 2:39 PM [employer] Height 165.1 cm (5' 5 ) 08/13/2023 2:31 PM CDT Body Mass Index 40.9 08/13/2023 2:31 PM CDT Plan of Treatment Upcoming Encounters Date Type Department Care Team (Late st Contact Info) Description 11/07/2024 3:30 PM CDT Office Visit [facility] Oncology and Hematology - [place] [address] [facility] [address] [place] [address] Kush Ruiz MD [address] [facility] [address] [place] [address] Health Maintenance Due Date Last Done Comments Pre-Diabetes and Diabetes Screening 1959 DTAP/TDAP/TD VACCINES (1 - Tdap) 1978 BREAST CANCER SCREENING 1999 FIT-DNA Q 3 years 2004 FIT/FOBT Q 1 year 2004 Flex Sig/CT Colonography Q 5 years 2004 COLORECTAL SCREENING 12/20/2018 12/20/2008 Colorectal Cancer Screening 12/20/2018 RSV VACCINE (60+ or ) (1 - Risk 60-74 years 1-dose series) 2019 INFLUENZA VACCINE (#1) 2023 0, 01/25/2019, 10/28/2018, Additional history exists COVID-19 Vaccine (2 - 2023-2 5 season) 2023 06/08/2021 Preventative Visit- Commercial 02/24/2024 06/22/2020 , 04/11/2019 PNEUMOCOCCAL VACCINE 50+ YEA RS (3 of 3 - PCV20 or PCV21) 01/17/2025 01/18/2020, 12/31/2014 ZOSTER VACCINE Completed 05/25/2020, 01/20/2020 OSTEOPOROSIS SCREENING Completed 11/22/2022, 2020 Procedures Procedure Name Priority Date/Time Associated Diagnosis Comments BASIC METABOLIC PANEL Routine 04/25/2024 10:54 AM [employer] from Last 3 Months Results * BASIC METABOLIC PANEL (04/25/2024 10:54 AM [employer]) Blood Kush Ruiz MD CHEMISTRY ORDERABLES Final Resu lt from Last 3 Months Insurance [employer] CHOICE POS II Care Teams Irrigation District Manager Relationship Specialty Start Date End Date Iker Haynes DO [address] [place] [phone] PCP - General Family Practice 08/10/23
--- OUTSIDE RECORDS SUMMARY | 2024-06-07 11:25 | XMS_ITS | Data Portability ---
Author Organization [facility] Address [address] [place] [address] Care Team Providers Care Power Project Manager Name Role Phone GOLDY DOMINGUEZRY Primary Care Provider Assessment Encounter Date Assessment Date Assessment LastModified by Organization Details LastModified Time 05/20/2023 05/20/2023 Labs completed o n 05/02/2023 WBC 7.6, Hgb 14.4, Platelets 210, Glucose(105), BUN 17, Creatinine(1.08), Sodium 141, Potassium 4.6, Chloride 99, Co2 26, Calcium 10.1, Protein 7.3, albumin 4.6, Bilirubin 0.4, Alk Phos 62, AST(45), ALT(63), Cholesterol 149, Trig(220), HDL(32), LDL 80 ECG done on 06/16/2022 shows normal sinus rhythm with rate of 69 beats minute, left axis deviation, old inferior infarction, age indeterminate, poor R-wave progression, IVCD, nonspecific T-wave abnormality, compared to the previous EKG done on 11/27/2020, there is no significant change. ASSESSMENT Sinus tachycardia - R00.0, Controlled on diltiazem Afib - I48.91, Secondary to central line placement status post cardioversion without reoccurrence so not on anticoagulation PSVT (paroxysmal supraventricular tachycardia) - I47.1, History of attempted radiofrequency ablation which was unsuccessful in the past HTN (hypertension) - I10, Controlled, Transaminitis, mildly elevated, not high enough to stop her statin with hepatic steatosis with a negative hepatitis panel with no other liver pathology noted on ultrasound of the right upper quadrant in August of 2018. Hepatic steatosis by right upper quadrant ultrasound on 09/11/2018 Mixed hyperlipidemia- E78.2, LDL is at goal, triglycerides are mildly elevated and HDL is low on Crestor 10 mg daily. Edema - R60.9, Likely secondary to Cardizem resolved on spironolactone. Asthma, moderate persistent - J45.40, Triggered by environmental allergens/sinus infections Obstructive sleep apnea - G47.33, History of on CPAP, managed by Dr. Inman Laryngeal spasm - J38.5, /Tracheitis/angioe lizette controlled on Xolair and treatment of her reflux, managed by a doctor Vito, of the immunology service. Hypothyroidism - E03.9, On supplementation with elevated TSH, managed by Dr. 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 Padron DVT (deep venous thrombosis) - I82.409, History of and pulmonary emboli in the past, on plavix for this as per her primary md, last dvt was in 2003 Immune deficiency disorder - D84.9, With mildly diminished IgG evaluated by immunology Pulmonary embolism - I26.99, in 2003 without recurrence completed her course of anticoagulation. Aspirin allergy?, placed on plavix elsewhere she tells me they put her on it after her pulmonary embolism. After completing her anticoagulation course, however she can take ibuprofen without any allergy. Plan: I recommend a Heart healthy diet which is low in fat, low in cholesterol and low in sodium. I asked her to try to stay as active as possible and continue to exercise with her exercise bike. I asked her to continue to lose weight. I asked her to avoid NSAIDs. I asked her to drink more fluids. I will continue her Plavix 75 mg daily, coenzyme Q10 200 mg daily, diltiazem CD 240 mg daily, magnesium oxide 400 mg daily, spironolactone 50 mg daily. I asked her to return in 6 month and obtain a fasting lipid profile, complete metabolic profile and CBC prior to her follow-up visit. I asked her return sooner if she has any cardiac issues or problems were recurring chest pain. Cardiology Tests: ECHOCARDIOGRAM Report: ECHO: 03/27/07 normal left ventricular [...] Negative stress test with mild exercise impairment. [email or web address] Not available 05/20/2023 14:46:20 11/19/2023 11/19/2023 LABS: 11/07/23. WBC 6.4, hemoglobin 14.4, hematocrit [...] Trig(220), HDL(32), LDL 80 ECG done on at [facility] on 09/21/2023 with the interpretation showing sinus rhythm with sinus arrhythmia anterior infarction, inferior infarction And T-wave abnormality. Compared to previous EKG done 06/16/2022, there was no significant change according to the description that they provided. ASSESSMENT Sinus tachycardia - R00.0, Controlled on diltiazem Afib - I48.91, Secondary to central line placement status post cardioversion without re occurrence so not on anticoagulation PSVT (paroxysmal supraventricular tachycardia) - I47.1, History of attempted radiofrequency ablation which was unsuccessful in the past HTN (hypertension) - I10, Controlled, Transaminitis, mildly elevated, was not high enough to stop her statin with hepatic steatosis with a negative hepatitis panel with no other liver pathology noted on ultrasound of the right upper quadrant in August of 2018, now normalized. Hepatic steatosis by right upper quadrant ultrasound on 09/11/2018 Mixed hyperlipidemia- E78.2, LDL is at goal, [...] of her reflux, managed by a doctor Vito, of the immunology service. Hypothyroidism - E03.9, [...] low in cholesterol and low in sodium. she had asked if she needs to be on Plavix and I told her she was placed on it elsewhere after her pulmonary embolism After syncopal lead of the anticoagulation and this was due to her having a possible aspirin allergy. From a cardiac standpoint she does not need to be on any antiplatelet therapy. Furthermore her pulmonary embolism was provoked pulmonary embolism after a fracture and she tells me she was worked up for a clotting disorder by Oncology and they found that she had no clotting disorders so she can go ahead and stop the Plavix. I asked her to continue her coenzyme Q10 200 mg daily, diltiazem CD 240 mg daily, magnesium oxide 400 mg daily, spironolactone 50 mg daily. I asked her to return in 6 month and obtain a fasting lipid profile and a complete metabolic profile prior to her follow-up visit. I asked her return sooner if she [...] Negative stress test with mild exercise impairment. Not available 11/19/2023 16:46:13 06/06/2024 06/06/2024 Labs completed o n 05/28/2024 [...] Negative stress test with mild exercise impairment. Not available 06/06/2024 11:24:34 Plan of Treatment Reminders Order Date Submit Date Provider Last Modified By Organization Details Last Modified Time Details Appointments ANY 15 2024 11:00A Diony Richard MD Not available Not available Not available Lab lipid panel, serum 2024 025 [email or web address] [facility], [address] [place] [address] 2, [place], [address], 06/06/2024 11:23:14 CMP, serum or plasma 2024 025 [email or web address] [facility], [address] [place] [address] 2, [place], [address], 06/06/2024 11:23:14 hepatic function panel, serum 2024 025 [email or web address] [facility], [address] [place] [address] 2, [place], [address], 06/06/2024 11:23:14 lipid panel, serum 2023 025 [email or web address] [facility], [address] [place] [address] 2, [place], [address], 05/24/2024 07:40:06 CMP, serum or plasma 2023 025 [email or web address] [facility], [address] [place] [address], [place], [address], 05/24/2024 07:40:06 lipid panel, serum 2023 024 [email or web address] [facility], [address] [place] [address], [place], [address], 11/23/2023 07:50:20 CMP, serum or plasma 2023 024 [email or web address] [facility], [address] [place] [address], [place], [address], 11/23/2023 07:50:20 CBC 2023 024 [email or web address] [facility], [address] [place] [address], [place], [address], 11/23/2023 07:50:20 Referral None recorded . Procedures None recorded . Surgeries None recorded . Imaging electroc patricia m 2024 025 [email or web address] In-Office Order, Internal Use Only DO Not Attach Compendium DO Not Attach Compendium, Do Not Delete/merge, [id number] 06/06/2024 11:23:14 Medication Orders None recorded . Patient TargetsNo targets recorded. Patient Instructions Encounter Date Encounter Id Patient Instructions Last Modified By Organization Details Last Modified Time 06/06/2024 [id number] A healthy lifestyle: care instructions Not available 06/06/2024 11:23:14 Reason for Referral None Reported. Results Created Date Observation Date Name Description Value Unit Range Abnormal Flag Note LastModifiedBy Organization Detail LastModifiedTime 05/29/1905/29/2024 LIPID PANEL cholesterol, total 173 mg/dL 100-19 9 Not Available [facility] ([facility]) [address] [place], [address], 05/30/2024 12:41:53 05/29/19 25 05/29/2024 LIPID PANEL triglyceride s 200 mg/dL 0-149 above high normal Not Available [facility] ([facility]) [address] [place], [address], 05/30/2024 12:41:53 05/29/19 25 05/29/2024 LIPID PANEL HDL cholesterol 38 mg/dL >39 below low normal Not Available [facility] ([facility]) [address] [place], [address], 05/30/2024 12:41:53 05/29/19 25 05/29/2024 LIPID PANEL VLDL cholesterol emily 35 mg/dL 5-40 Not Available [facility] ([facility]) [address] [place], [address], 05/30/2024 12:41:53 05/29/19 25 05/29/2024 LIPID PANEL LDL chol calc ([facility]) 100 mg/dL 0-99 above high normal Not Available [facility] ([facility]) [address] [facility], [place], [address], 05/30/2024 12:41:53 05/29/19 25 05/29/2024 CMP14 +EGFR glucose 107 mg/dL 70-99 above high normal Not Available [facility] ([facility]) [address] [place], [address], 05/30/2024 12:41:54 05/29/19 25 05/29/2024 CMP14 +EGFR BUN 17 mg/dL 8-27 Not Available [facility] ([facility]) [address] [place], [address], 05/30/2024 12:41:54 05/29/19 25 05/29/2024 CMP14 +EGFR creatinine 1.08 mg/dL 0.57-1 .00 above high normal Not Available [facility] ([facility]) [address] [place], [address], 05/30/2024 12:41:54 05/29/19 25 05/29/2024 CMP14 +EGFR eGFR 57 mL/mi n/1.7 3 >59 below low normal Not Available [facility] ([facility]) [address] [facility], [place], [address], 05/30/2024 12:41:54 05/29/19 25 05/29/2024 CMP14 +EGFR BUN/creatini ne ratio 16 12-28 Not Available [facility] ([facility]) [address] [place], [address], 05/30/2024 12:41:54 05/29/19 25 05/29/2024 CMP14 +EGFR sodium 142 mmol/ L 134-14 4 Not Available [facility] ([facility]) [address] [place], [address], 05/30/2024 12:41:54 05/29/19 25 05/29/2024 CMP14 +EGFR potassium 4.6 mmol/ L 3.5-5. 2 Not Available [facility] ([facility]) [address] [place], [address], 05/30/2024 12:41:54 05/29/19 25 05/29/2024 CMP14 +EGFR chloride 101 mmol/ L 96-106 Not Available [facility] ([facility]) [address] [place], [address], 05/30/2024 12:41:54 05/29/19 25 05/29/2024 CMP14 +EGFR carbon dioxide, total 23 mmol/ L 20-29 Not Available [facility] ([facility]) [address] [place], [address], 05/30/2024 12:41:54 05/29/19 25 05/29/2024 CMP14 +EGFR calcium 9.9 mg/dL 8.7-10 .3 Not Available [facility] ([facility]) [address] [place], [address], 05/30/2024 12:41:54 05/29/19 25 05/29/2024 CMP14 +EGFR protein, total 7.0 g/dL 6.0-8. 5 Not Available [facility] ([facility]) [address] [place], [address], 05/30/2024 12:41:54 05/29/19 25 05/29/2024 CMP14 +EGFR albumin 4.5 g/dL 3.9-4. 9 Not Available [facility] ([facility]) [address] [place], [address], 05/30/2024 12:41:54 05/29/19 25 05/29/2024 CMP14 +EGFR globulin, total 2.5 g/dL 1.5-4. 5 Not Available [facility] ([facility]) [address] [place], [address], 05/30/2024 12:41:54 05/29/19 25 05/29/2024 CMP14 +EGFR bilirubin, total 0.4 mg/dL 0.0-1. 2 Not Available [facility] ([facility]) [address] [facility], [place], [address], 05/30/2024 12:41:54 05/29/19 25 05/29/2024 CMP14 +EGFR alkaline phosphatase 55 IU/L 44-121 Not Available [facility] ([facility]) [address] [facility], [place], [address], 05/30/2024 12:41:54 05/29/19 25 05/29/2024 CMP14 +EGFR AST (SGOT) 59 IU/L 0-40 above high normal Not Available [facility] ([facility]) [address] [facility], [place], [address], 05/30/2024 12:41:54 05/29/19 25 05/29/2024 CMP14 +EGFR ALT (SGPT) 55 IU/L 0-32 above high normal Not Available [facility] ([facility]) [address] [facility], [place], [address], 05/30/2024 12:41:54 11/19/19 24 09/21/2023 elect rocar diogr am No observ ation record ed. [facility] [address], [place], [address], 12/09/2023 11:01:48 06/07/19 25 06/06/2024 elect rocar diogr am No observ ation record ed. [facility] In-Office Order Internal Use Only DO Not Attach Compendium DO Not Attach Compendium, Do Not Delete/merge, [id number] 06/06/2024 11:35:10 06/07/19 elect rocar diogr am No observ ation record ed. [facility] Not Available 06/06 11:35:10 Result Notes None recorded. Problems Name Problem SNOMED Code Status Onset Date Resolution Date Notes Provider Name and Address Organization Details Recorded Time Bilateral lower leg edema 837658690 Active 2023 Tre Richard MD Attn: Margo claudette,[address] [facility], [place], [address], [facility] - [facility] 4 16:31:54 Mixed hyperlipidemia 144156393 Active 2023 Tre Richard MD Attn: Margo claudette,[address] [facility], [place], [address], [facility] - [facility] 4 16:31:55 Essential hypertension 21860036 Active 2023 Tre Richard MD Attn: Margo wilkins,[address] [facility], [place], [address], [facility] - [facility] 4 16:31:55 Paroxysmal supraventricul ar tachycardia 89859744 Active 2023 Tre Richard MD Attn: Margo wilkins,[address] [facility], [place], [address], [facility] - [facility] 4 16:31:59 Sinus tachycardia 52901915 Active 2023 Tre Richard MD Attn: Margo wilkins,[address] [facility], [place], [address], [facility] - [facility] 4 16:32:00 Liver enzymes level above reference range 923214536 Active 2024 Tre Richard MD Attn: Margo wilkins,[address] [facility], [place], [address], [place] - [facility] 5 11:04:12 Problem Notes None recorded. Procedures Surgical History Date Name Laterality Status Provider Name and Address Organization Details Recorded Time Breast Surgery completed Diego Kruger [place] - [place] 11/19/2023 16:02:13 Imaging Results Imaging Date Name Status LastModified by Organization Details LastModified Time 09/21/2023 electrocardiogram completed [facility] [address], [place], [address], 12/09/2023 11:01:48 06/06/2024 electrocardiogram completed [facility] In-Offi ce Order Internal Use Only DO Not Attach Compendium DO Not Attach Compendium, Do Not Delete/merge, [id number] 06/06/2024 11:35:10 06/06/2024 electrocardiogram completed [email or web address] Informa tion not available 06/06/2024 11:35:10 Procedure Notes None recorded. Medical Equipment None Reported. Allergies Allergen ID Allergen Name Allergen Category Reaction Reaction Severity Criticality Documentation Date Start Date Code Code System Note Provider Name and Address Organization Details Recorded Time 751165 Substance with sulfonami de structure and antibacte rial mechanism of action (substanc e) medicatio n hives Not available Not available 05/20/2023 25010 8003 SNOMED Not Available Not Available Not [...] Not Available Vitals Date Recorded Body height Body mass index (BMI) Body weight Heart rate Respiratory rate Oxygen saturation Oxygen saturation in Arterial blood by Pulse oximetry Systolic blood pressure Diastolic blood pressure Provider Name and Address Organization Details Last Updated DateTime 4 162.56 cm 40.5 kg/m2 549108. 44 g 78 /min 18 /min 98 % 98 % 130 mm[Hg] 78 mm[Hg] Tiburcio arora [place] - [facility] 4 14:03:48 Date Recorded Body height Body mass index (BMI) Body weight Oxygen saturation Oxygen saturation in Arterial blood by Pulse oximetry Heart rate Systolic blood pressure Diastolic blood pressure Provider Name and Address Organization Details Last Updated DateTime 4 162.56 cm 41.4 kg/m2 646159. 12 g 98 % 98 % 80 /min 122 mm[Hg] 78 mm[Hg] Diego Kruger [place] - [facility] 4 16:14:28 Date Recorded Body height Provider Name an d Address Organization Details Last Updated DateTime 06/06/2024 162.56 cm Natasha Golden MA [facility] 025 10:33:39 Date Recorded Body mass index (BMI) Body weight Heart rate Oxygen saturation Oxygen saturation in Arterial blood by Pulse oximetry Systolic blood pressure Diastolic blood pressure Provider Name and Address Organization Details Last Updated DateTime 42.3 kg/m2 624884. 88 g 90 /min 98 % 98 % 126 mm[Hg] 74 mm[Hg] Diego Kruger MA [facility] 5 10:47:22 Social History Question Answer Notes LastModified by Organizat ion Details LastModified Time Tobacco Smoking Status Never Smoker Tiburcio Jernigan MA null, [facility] 05/20/2023 14:01:52 What Was The Date Of [...] SNOMED-CT Code Diagnosis ICD10 Code Diagnosis Note [id number] Tiburcio Jernigan MA [facility] [place] [facility] [address] [place] [address] 05/20/2023 13:44:44 05/21/2023 10:09:10 Sinus tachycardia 72853103 R00.0 Paroxysmal supraventricular tachycardia 52428259 I47.10 Essential hypertension 87211367 I10 Long-term current use of antiplatelet drug 8242567719 01614 Z79.02 Mixed hyperlipidemia 267 582043 E78.2 [id number] Tre Richard MD [facility] [place] [facility] [address] [place] [address] 11/19/2023 15:48:52 11/23/2023 11:20:42 Sinus tachycardia 75688614 R00.0 Paroxysmal supraventricular tachycardia 07869893 I47.10 Essential hypertension 58442979 I10 Mixed hyperlipidemia 267 440335 E78.2 Bilateral lower leg edema 006548280 R60.0 [id number] Tre Richard MD [facility] [place] [facility] [address] [place] [address] 06/06/2024 10:31:46 06/06/2024 11:24:53 Morbid obesity 386699785 E66.01 Essential hypertension 26883212 I10 Sinus tachycardia 535441 01 R00.0 Paroxysmal supraventricular tachycardia 26456664 I47.10 Mixed hyperlipidemia 267 511199 E78.2 Bilateral lower leg edema 247169361 R60.0 Liver enzy mes level above reference range 077887209 R74.01 Health Concerns Section Related Observation LastModified by Organization Detai ls LastModified Time None Recorded Concern Status LastModified by Organization Details LastModified Time None Recorded Advance Directives Directive None Recorded Payers Encounter Date Sequence Insurance Name Policy Number Policy Girard Covered Member ID Girard Member ID Guarantor Name 05/20/2023 1 [facility] [id number] oSnia Edgardo [id number] Sonia Edgardo 11/19/2023 1 [employer] - CHOICE (POS II) [id number] Sonia Reynoso [id number] Soniatyler Reynoso 06/06/2024 1 [employer] - CHOICE (POS II) [id number] Sonia Reynoso [id number] Soniatyler Reynoso Notes Date Note Type Note Provider Name and Address Organization Details Recorded Time 05/20/2023 text/html Sonia is a 63-year-old female who returns for follow-up visit. She is rides her 20 minutes with a recumbent bike each day and still walks with a walker with no chest pain or pressure. She is still limited by lower back pain. She covid around josias time adn again in March again. She has not required any clonidine since her last visit as her blood pressures have been well controlled. She has follows a low carb diet and tells me she has lost 20 pounds over the past two months. She denies any significant bleeding on Plavix with no recent falls. She denies any side effects from their medications. She denies any paroxysmal nocturnal dyspnea, orthopnea, presyncope, syncope or pedal edema. ASHLEY Russell, [facility] 05/20/2023 15:07:22 11/19/2023 text/html Sonia is a 63-year-old female who returns for follow-up visit. She had a lumpectomy of the left breast on September 21 for some precancerous cells and is currently on tamoxifen but did not require radiation. She had no complications of the procedure. She did see a neurosurgeon regarding her back who felt that the risks outweighed the benefits to surgery. So he is just recommend seeing conservative management with pain management. She continues to ride her exercise bike for 20 minutes 6 days a week with no chest pain or pressure. she continues to walk with a walker due to her chronic lower back pain. she said she had about a 15 second episode of palpitations feeling like her heart was racing but has not had that for several months and it seems to be well controlled for the most part with the diltiazem. She has not required any clonidine due to her blood pressures being under control. since her last visit as her blood pressures have been well controlled. She has been following a lower carb diet and her weight is up 5 lb since her last visit about 6 months ago but remains down about 15 lb over the last 8 months. She denies any significant bleeding on Plavix with no recent falls. She denies any side effects from their medications. She denies any paroxysmal nocturnal dyspnea, orthopnea, presyncope, syncope or pedal edema. Tre Richard MD Attn: [employer]ing,[address] [facility], [place], [address], [facility] [place] 11/19/2023 16:46:18 06/06/2024 text/html Sonia is a 64-year-old female [...] edema. Tre Richard MD Attn: [address] [place], [address], [place] [facility] 06/06/2024 11:24:49 OBGyn Episode No OBEpisode recorded.
--- OUTSIDE RECORDS SUMMARY | 2024-06-07 11:25 | XMS_ITS ---
Author Organization [facility] Address [address] [place] [address] Care Team Providers Care Bell Attendant Name Role Phone Iker Haynes Primary Care Provider Dusty Arias Unavailable [phone] Storm Chen MD, [place] Unavailable Lavern vailable REASON FOR VISIT ARC follow-up, doing well with avoidance measures, medications, and SCIT. Has since completed cluster build-up for reformulated vials with significant benefit; back on MM dosing, Severe, persistent asthma follow-up, on q 4 week Xolair injections. Previously overcame COVID s/p multiple rounds of steroids. Started on Trelegy with benefit cough continues Breo due to cost, Known severe VCD and laryngospasm with prior ER visits, hospitalizations, and intubations. 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 If intended option is not shown, discontinue and re-order from Quick Search* Active NexIUM 20 MG 1 cap(s) orally once a day Active ZyrTEC Allergy 10 MG 1 tab(s) orally once a day Active Multivitamin - 1 tablet Orally Once a day Active Vitamin B12 1000 MCG 1 tablet Orally Once a day Active Vitamin D3 125 MCG (5000 UT) 1 capsule Orally Once a day Active Magnesium Glycinate 120 MG as directed Orally Active SIT (TRADITIONAL) variable per schedule SC per schedule for 99 days Active Vitamin C 500 MG 1 tablet Orally Once a day Active Tylenol 325 MG 1 tablet as needed Orally every 6 hrs Active Voltaren 1 % as directed Externally Active Folic Acid 1 MG 1 tablet Orally Once a day Active Calcium 600 MG 1 tablet with meals Orally Twice a day Active SIT (Traditional) variable - see record per schedule subcutaneous per schedule for 999 days Active OLOPATADINE NASAL 665 mcg/inh 2 spray(s) intranasally 2 times a day for 30 days Active ALBUTEROL SULFATE 2.5 mg/3 mL (0.083%) 3 ml by nebulizer every 6 hours for 30 days Active traMADol HCl ER 200 MG 1 tablet Orally Once a day Active MONTELUKAST 10 mg 1 tab(s) orally once a day for 30 day(s) Active XOLAIR 150 mg 300 mg subcutaneously every 4 weeks Active PROAIR HFA CFC free 90 mcg/inh 2 puff(s) inhaled 4 times a day for 90 days Active NASACORT ALLERGY 24HR 55 mcg/inh 2 spray(s) intranasally qday - BID for 30 day(s) Active AUVI-Q 0.3 mg as directed intramuscularly once for 1 DAY Active BREO ELLIPTA 100 mcg-25 mcg/inh 1 puff(s) inhaled once a day for 30 days Active Albuterol Sulfate (2.5 MG/3ML) 0.083% 3 ml by nebulizer every 6 hours for 30 days Not-Taking traMADol HCl ER 100 MG 1 tab(s) orally once a day for 30 day(s) Not-Taking ZYRTEC 10 mg 1 tab(s) orally once a day Active EPIPEN 2-JADE 0.3 mg 0.3 mg intramuscularly once Active NEXIUM 20 mg 1 cap(s) orally once a day Active Trelegy Ellipta 100 MCG-62.5 MCG-25 MCG/INH 1 PUFF(S) INHALED ONCE A DAY for 90 DAYS *Please review and pick correct strength-formula tion from Medispan options. If intended option is not shown, discontinue and re-order from Quick Search* Not-Taking BONIVA 150 MG 1 TAB(S) ORALLY ONCE A MONTH for 30 DAY(S) *Please review for potential replacement for e-prescription and drug interaction check* Not-Taking Trelegy Ellipta 100 MCG-62.5 MCG-25 MCG/INH 1 PUFF(S) INHALED ONCE A DAY for 30 DAYS *Please review and pick correct strength-formula tion from [employer] Xpressspan options. If intended option is not shown, discontinue and re-order from Quick Search* Not-Taking predniSONE 20 MG 3 tabs orally Patient to call MD for frequency for 60 days Not-Taking traMADol HCl ER 200 MG 1 tablet Orally Once a day Not-Taking Tamoxifen Citrate 20 MG 1 tablet Orally Once a day Not-Taking OLOPATADINE NASAL 665 MCG/INH 2 SPRAY(S) INTRANASALLY 2 TIMES A DAY for 30 DAYS *Please review for potential replacement for e-prescription and drug interaction check* Not-Taking EpiPen 2-Jade 0.3 MG/0.3ML 0.3 mg intramuscularly once Not-Taking Plavix 75 MG 1 tab(s) orally once a day Not-Taking TRELEGY ELLIPTA 100 mcg-62.5 mcg-25 mcg/inh 1 puff(s) inhaled once a day for 30 days Not-Taking SIT (Cluster) variable - see record per schedule subcutaneous per schedule for 999 Active Breo Ellipta 100-25 MCG/ACT INHALE 1 PUFF ONCE DAILY for 90 Active Azelastine HCl 137 MCG/SPRAY SPRAYS 2 SPRAYS INTO EACH NOSTRIL TWICE DAILY for 25 Active Montelukast Sodium 10 MG TAKE 1 TABLET BY MOUTH EVERY DAY FOR 90 DAYS for 90 Active Spironolactone 50 MG 1 tab(s) orally 2 times a day for 30 day(s) Active cloNIDine HCl 0.1 MG 1 tab(s) orally up to TID PRN Active CoQ-10 100 MG 1 cap(s) orally once a day Active Crestor 10 MG 1 tab(s) orally once a day (at bedtime) Active Levothyroxine Sodium 125 MCG 1 tab(s) orally once a day Active Methocarbamol 500 MG TAKE 1 TABLET BY MOUTH THREE TIMES DAILY NEEDED for 30 Active Auvi-Q 0.3 MG/0.3ML as directed intramuscularly once for 1 DAY Active Nasacort Allergy 24HR 55 MCG/ACT 2 spray(s) intranasally qday - BID for 30 day(s) Active Albuterol Sulfate (2.5 MG/3ML) 0.083% 3 ml by nebulizer every 6 hours for 30 days Active Cardizem 240 1 TAB(S) ORALLY QDAY *Please rev iew and pick correct strength-formula tion from Ipselex options. If intended option is not shown, discontinue and re-order from Quick Search* Active Encounters Encounter Location Date Provider Diagnosis [facility] [address] [facility] [address] [place] [address] 06/07/2024 Dusty Vuong Allergic rhinitis du e to pollen J30.1 ; Allergic rhinitis due to animal (cat) (dog) hair and dander J30.81 ; Other allergic rhinitis J30.89 ; Other chronic allergic conjunctivitis H10.45 ; Severe persistent asthma, uncomplicated J45.50 ; Other diseases of vocal cords J38.3 ; Gastro-esophageal reflux disease with esophagitis K21.0 ; Angioneurotic edema, subsequent encounter T78.3XXD and Essential (primary) hypertension I10 Assessments Encounter Date Diagnosis (ICD Code) Assessment Notes Treatment Notes Treatment Clinical Notes Section Notes 06/07/2024 Allergic rhinitis due to pollen (ICD-10 - J30.1) Sonia clearly suffers from atopic disease given prior skin tests and history. Accordingly, we have encouraged compliance with her aggressive medication regimen, nasal washes and allergy-specific avoidance measures. We previously underwent additonal SPT to trees and perineals allergens of which multiple additional allergens were found. She is now on MM with reformulated vials with continued significant benefit reported. Procedure tolerated today without issue. - Continue nasal antihistamine -Continue to premedicate with Zyrtec -Increase SCIT frequency in peak seasons PRN -Return per schedule for SCIT and 3 months for E&M 06/07/2024 Allergic rhinitis due to animal (cat) (dog) hair and dander (ICD-10 - J30.81) Continue avoidance, meds and SCIT per schedule. Increase frequency PRN 06/07/2024 Other allergic rhinitis (ICD-10 - J30.89) Continue avoidance, meds and SCIT per schedule. Increase frequency PRN 06/07/2024 Other chronic allergic conjunctivitis (ICD-10 - H10.45) Given ocular signs and symptoms, I encouraged allergy avoidance measures and meds as above. If symptoms persist, consider adding additional medications including intraocular antihistamine/ma st cell stabilizer, PRN and continue SCIT as an adjunctive measure 06/07/2024 Severe persistent asthma, uncomplicated (ICD-10 - J45.50) Sonia continues to report less asthma symptoms with Xolair and SCIT. Will continue Xolair and SCIT, as she feels the combination of the 2 have made the biggest improvement in her asthma control, previously crediting Xolair with saving my life. -Xolair was previously denied as there is option for at home administration. Previously discussed this with Sonia and she chose to opt with at home dosing. We have discussed in detail her risk for having a reaction to the Xolair. Also aware that she needs to be seen for in office evaluation every 3 months -Will continue with at home dosing log of which was provided today. - We elected to trail Trelegy previously with 10% improvement That said, it is too expensive and is back to using Breo of which she if happy with current control. -Continue to brush, floss, and rinse her mouth after ICS/LABA use and to use a spacer with both her inhalers. -AIE kept on hand at all times given risk of anaphylaxis with Xolair. May want to conider different biologic if need for oral steroids continues -AAP reviewed -Follow-up in 3 months for E&M. Advised obtaining PFT in office in the next 1-2 months of which she is agreeable 06/07/2024 Other diseases of vocal cords (ICD-10 - J38.3) Sonia has intermittent paradoxical vocal cord motion, and in the acute setting, episodes of eliazar laryngospasm. It is not clear what triggers precipitate her symptoms, but her lower airway is not typically involved. She continues on a PPI as it is possible that GERD is a trigger for her symptoms. 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 -No interval episodes, consider input by second speech therapist if needed 06/07/2024 Gastro-esophageal reflux disease with esophagitis (ICD-10 - K21.0) Reflux seen by ENT - Dr. Taylor - who performed an upper scope in 01/2015 while episode of laryngospasm was active. -Continue Nexium 40mg in AM and 20mg in PM 06/07/2024 Angioneurotic edema, subsequent encounter (ICD-10 - T78.3XXD) Sonia has a history of ER visits with upper airways symptoms in 12/2014 and in 04/2015 with probable laryngospasm over angioedema. 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 It is unclear if she experienced swelling of the throat or more likely, possible VCD, that is severe and asphyxiating. Does not appear to be HAE I or II or AAE given history and prior work-up. No interval issues. AIE on patient at all times 06/07/2024 Essential (primary) hypertension (ICD-10 - I10) BP elevated today without symptoms of urgency or emergency, continue to monitor 06/07/2024 Other Plan Of Treatment Medication Medication Name Sig Start Date Stop Date Notes SIT (Traditional) variable - see record per schedule subcutaneous per schedule for 999 days OLOPATADINE NASAL 665 mcg/inh 2 spray(s) intranasally 2 times a day for 30 days ALBUTEROL SULFATE 2.5 mg/3 mL (0.083%) 3 ml by nebulizer every 6 hours for 30 days MONTELUKAST 10 mg 1 tab(s) orally once a day for 30 day(s) XOLAIR 150 mg 300 mg subcutaneousl y every 4 weeks PROAIR HFA CFC free 90 mcg/inh 2 puff(s) inhaled 4 times a day for 90 days NASACORT ALLERGY 24HR 55 mcg/inh 2 spray(s) intranasally qday - BID for 30 day(s) AUVI-Q 0.3 mg as directed intramus cularly once for 1 DAY BREO ELLIPTA 100 mcg-25 mcg/inh 1 puff(s) inhaled once a day for 30 days ZYRTEC 10 mg 1 tab(s) orally once a day EPIPEN 2-JADE 0.3 mg 0.3 mg intramuscularly once NEXIUM 20 mg 1 cap(s) orally once a day Treatment Notes Assessment Notes Allergic rhinitis due to pollen Sonia clearly suffers from atopic disease given prior skin tests and history. Accordingly, we have encouraged compliance with her aggressive medication regimen, nasal washes and allergy-specific avoidance measures. We previously underwent additonal SPT to trees and perineals allergens of which multiple additional allergens were found. She is now on MM with reformulated vials with continued significant benefit reported. Procedure tolerated today without issue. - Continue nasal antihistamine -Continue to premedicate with Zyrtec -Increase SCIT frequency in peak seasons PRN -Return per schedule for SCIT and 3 months for E&M Allergic rhinitis due to ani mal (cat) (dog) hair and dander Continue avoidance, meds and SCIT per schedule. Increase frequency PRN Other allergic rhinitis Continue avoidan ce, meds and SCIT per schedule. Increase frequency PRN Other chronic allergic conjunctivitis Gi spenser ocular signs and symptoms, I encouraged allergy avoidance measures and meds as above. If symptoms persist, consider adding additional medications including intraocular antihistamine/mast cell stabilizer, PRN and continue SCIT as an adjunctive measure Severe persistent asthma, uncomplicated Sonia continues to report less asthma symptoms with Xolair and SCIT. Will continue Xolair and SCIT, as she feels the combination of the 2 have made the biggest improvement in her asthma control, previously crediting Xolair with saving my life. -Xolair was previously denied as there is option for at home administration. Previously discussed this with Sonia and she chose to opt with at home dosing. We have discussed in detail her risk for having a reaction to the Xolair. Also aware that she needs to be seen for in office evaluation every 3 months -Will continue with at home dosing log of which was provided today. - We elected to trail Trelegy previously with 10% improvement That said, it is too expensive and is back to using Breo of which she if happy with current control. -Continue to brush, floss, and rinse her mouth after ICS/LABA use and to use a spacer with both her inhalers. -AIE kept on hand at all times given risk of anaphylaxis with Xolair. May want to conider different biologic if need for oral steroids continues -AAP reviewed -Follow-up in 3 months for E&M. Advised obtaining PFT in office in the next 1-2 months of which she is agreeable Other diseases of vocal cords Sonia has intermittent paradoxical vocal cord motion, and in the acute setting, episodes of eliazar laryngospasm. It is not clear what triggers precipitate her symptoms, but her lower airway is not typically involved. She continues on a PPI as it is possible that GERD is a trigger for her symptoms. 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 -No interval episodes, consider input by second speech therapist if needed Gastro-esophageal reflux dis ease with esophagitis Reflux seen by ENT - Dr. Taylor - who performed an upper scope in 01/2015 while episode of laryngospasm was active. -Continue Nexium 40mg in AM and 20mg in PM Angioneurotic edema, subsequent encounte r Sonia has a history of ER visits with upper airways symptoms in 12/2014 and in 04/2015 with probable laryngospasm over angioedema. 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 It is unclear if she experienced swelling of the throat or more likely, possible VCD, that is severe and asphyxiating. Does not appear to be HAE I or II or AAE given history and prior work-up. No interval issues. AIE on patient at all times Essential (primary) hypertension BP elevated today without symptoms of urgency or emergency, continue to monitor Next Appt Details Follow Up: 2 Weeks,3 Months, Reason: Evaluation and Management,,SCIT Provider Name:Dusty chan, 06/07/2024 12:30:00 PM, [address] [facility], [address], [address], Provider Name:Senthil Padron , 06/28/2024 04:30:00 PM, [address] [facility], [address], [place], [address], Progress Notes * JORDYNVicente SUEri RDOB:1960 (64 yo F)Acc No.[id number]:06/07/2024 Progress Notes Patient: Sonia RIVERO Provider: Arlene Vuong PA-C :1960 A ge:64 Y S ex:Female Date:06/07/2024 Address:[address], [facility] Pcp:Iker Haynes Subjective: * Chief Complaints: * 1 . ARC follow-up, doing well with avoidance measures, medications, and SCIT. Has since completed cluster build-up for reformulated vials with significant benefit; back on MM dosing. 2. Severe, persistent asthma follow-up, on q 4 week Xolair injections. Previously overcame COVID s/p multiple rounds of steroids. Started on Trelegy with benefit cough continues Breo due to cost. 3. Known severe VCD and laryngospasm with prior ER visits, hospitalizations, and intubations. As long as she continues her GERD medication she has no issues.. 4. 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 * HPI: * Introduction: I had the pleasure of seeing Maile Reynoso, a 63 year-old WF with GERD, VCD, ARC and persistent asthma who returns for interval evaluation and management; and SCIT. She is again alone for today's visit. She has completed cluster build-up on refromualted vials of which she tolerated with minimal issue. Now back on MM with continued benefit since undergoing reformultation. Sonia continues doing her Xolair injections at home with self-injection every 4 weeks. Tolerated last dose without adverse reactions. P rior to Covid, her last asthma flare was in February 2020. At the time she was ill with URI and wheezing. After being treated with two rounds of abx her lower respiratory symptoms resolved. She typically becomes ill every February but hase overall improved in this regard. She continues on Breo low-dose, Singulair QD and ProAir PRN, along with monthly Xolair and SCIT, which she clearly believes have made the biggest difference in her overall asthma control. She was bumped to to Trelegy previously but continues B reo due to cost. She againreports minimal issues since last visit. S teroids historically worsens her reflux leading to laryngospasms. Sonia has also seen speech therapy in the past for VCD. She is currently taking Nexium 40mg AM and 20mg PM and believes her GERD is well controlled. Today, she reports no fevers, chills, night sweats or other constitutional symptoms. The patient is here for scheduled specific allergen immunotherapy. Please see the attached specialty form regarding the specifics of the administration of these vaccines. As per our protocol, they must undergo a screening health questionnaire (medication changes, reaction(s) to last immunotherapy dose(s), current health status, ACT (if appropriate), self-injectable epinephrine on patient(?) and peak flow (if appropriate)). Also, the patient must wait in our office for 30 minutes after receiving immunotherapy. Furthermore, every patient must have an epinephrine pen (self-injectable) with them at the time of administration--and carry if for the following 1.5 hours after they leave our office. The patient must also have taken their antihistamine the day of the injection, preferably 2 hours prior. The consent form for SCIT (subcutaneous immunotherapy) is on file. * ROS: A LLERGY: Positive p er the HPI and history, otherwise unremarkable.? S PECIAL SENSES: Positve for d ry eyes, itching in ears. C ONSTITUTIONAL: Positive for i tching, cold intolerance. E NT: Positive p er the HPI and history, otherwise unremarkable.? R ESPIRATORY: Positive for p er the HPI and history, otherwise unremarkable. O PHTHALMOLOGY: Positive for p er the HPI and history, otherwise unremarkable. E NDOCRINOLOGY: Positive for n one. C ARDIOLOGY: Positive for p alpitations. G ASTROENTEROLOGY: Positive for p er the HPI and history, otherwise unremarkable. U ROLOGY: Positive for n one. D ERMATOLOGY: Positive for p er the HPI and history, otherwise unremakable. N EUROLOGY: Positive for n one. H EMATOLOGY/LYMPH: Positive for n one. M USCULOSKELETAL: Positive for e roxanna morning stiffness, low back pain. ? P SYCHOLOGY: Positive for n one. F EMALE REPRODUCTIVE: Positive for i rregular periods, menopause. ? A ll other review of systems per the HPI and history, otherwise unremarkable. * Medical History: * Medications: T aking XOLAIR 150 mg powder for injection 300 mg subcutaneously every 4 weeks , Taking SIT (Traditional) variable - see record variable - see record per schedule subcutaneous per schedule , Taking traMADol HCl ER 200 MG Tablet Extended Release 24 Hour 1 tablet Orally Once a day , Taking Tylenol 325 MG Tablet 1 tablet as needed Orally every 6 hrs , Taking Voltaren 1 % Gel as directed Externally , Taking Folic Acid 1 MG Tablet 1 tablet Orally Once a day , Taking Calcium 600 MG Tablet 1 tablet with meals Orally Twice a day , Taking Vitamin C 500 MG Tablet 1 tablet Orally Once a day , Taking Multivitamin - Tablet 1 tablet Orally Once a day , Taking Vitamin B12 1000 MCG Tablet Extended Release 1 tablet Orally Once a day , Taking Vitamin D3 125 MCG (5000 UT) Capsule 1 capsule Orally Once a day , Taking Magnesium Glycinate 120 MG Capsule as directed Orally , Taking SIT (TRADITIONAL) variable see record per schedule SC per schedule , Taking Fosamax 70 MG Tablet 1 tablet 30 minutes before the first food, beverage or medicine of the day with plain water Orally , Taking Xolair 150 MG Solution Reconstituted 300 mg subcutaneously every 4 weeks , Taking Fish Oil 1200 MG 1 CAP ORALLY TID , Notes to Pharmacist: *Please review and pick correct strength-formulation from Ipselex options. If intended option is not shown, discontinue and re-order from Quick Search*, Taking NexIUM 20 MG Capsule Delayed Release 1 cap(s) orally once a day , Taking ZyrTEC Allergy 10 MG Tablet 1 tab(s) orally once a day , Taking Auvi-Q 0.3 MG/0.3ML Solution Auto-injector as directed intramuscularly once , Taking Nasacort Allergy 24HR 55 MCG/ACT Aerosol 2 spray(s) intranasally qday - BID , Taking Albuterol Sulfate (2.5 MG/3ML) 0.083% Nebulization Solution 3 ml by nebulizer every 6 hours , Taking Cardizem 240 TABLET 1 TAB(S) ORALLY QDAY , Notes to Pharmacist: *Please review and pick correct strength-formulation from Ipselex options. If intended option is not shown, discontinue and re-order from Quick Search*, Taking cloNIDine HCl 0.1 MG Tablet 1 tab(s) orally up to TID PRN , Taking CoQ-10 100 MG Capsule 1 cap(s) orally once a day , Taking Crestor 10 MG Tablet 1 tab(s) orally once a day (at bedtime) , Taking Levothyroxine Sodium 125 MCG Capsule 1 tab(s) orally once a day , Taking Methocarbamol 500 MG Tablet TAKE 1 TABLET BY MOUTH THREE TIMES DAILY NEEDED , Taking Spironolactone 50 MG Tablet 1 tab(s) orally 2 times a day , Taking SIT (Cluster) variable - see record variable - see record per schedule subcutaneous per schedule , Taking Breo Ellipta 100-25 MCG/ACT Aerosol Powder Breath Activated INHALE 1 PUFF ONCE DAILY , Taking Azelastine HCl 137 MCG/SPRAY Solution SPRAYS 2 SPRAYS INTO EACH NOSTRIL TWICE DAILY , Taking Montelukast Sodium 10 MG Tablet TAKE 1 TABLET BY MOUTH EVERY DAY FOR 90 DAYS , Not- Taking/PRN NEXIUM 20 mg delayed release capsule 1 cap(s) orally once a day , Not-Taking/PRN EPIPEN 2-JADE 0.3 mg kit 0.3 mg intramuscularly once , Not-Taking/PRN ZYRTEC 10 mg tablet 1 tab(s) orally once a day , Not-Taking/PRN AUVI-Q 0.3 mg kit as directed intramuscularly once , Not-Taking/PRN NASACORT ALLERGY 24HR 55 mcg/inh spray 2 spray(s) intranasally qday - BID , Not-Taking/PRN PROAIR HFA CFC free 90 mcg/inh aerosol 2 puff(s) inhaled 4 times a day , Not-Taking/PRN MONTELUKAST 10 mg tablet 1 tab(s) orally once a day , Not-Taking/PRN ALBUTEROL SULFATE 2.5 mg/3 mL (0.083%) solution 3 ml by nebulizer every 6 hours , Not-Taking/PRN OLOPATADINE NASAL 665 mcg/inh spray 2 spray(s) intranasally 2 times a day , Not-Taking/PRN Tamoxifen Citrate 20 MG Tablet 1 tablet Orally Once a day , Not-Taking/PRN OLOPATADINE NASAL 665 MCG/INH SPRAY 2 SPRAY(S) INTRANASALLY 2 TIMES A DAY , Notes to Pharmacist: *Please review for potential replacement for e-prescription and drug interaction check*, Not-Taking/PRN EpiPen 2-Jade 0.3 MG/0.3ML Solution Auto-injector 0.3 mg intramuscularly once , Not-Taking/PRN Plavix 75 MG Tablet 1 tab(s) orally once a day , Not-Taking/PRN TRELEGY ELLIPTA 100 mcg-62.5 mcg-25 mcg/inh powder 1 puff(s) inhaled once a day , Not-Taking/PRN traMADol HCl ER 200 MG Tablet Extended Release 24 Hour 1 tablet Orally Once a day , Not-Taking/PRN Trelegy Ellipta 100 MCG-62.5 MCG-25 MCG/INH POWDER 1 PUFF(S) INHALED ONCE A DAY , Notes to Pharmacist: *Please review and pick correct strength-formulation from Medispan options. If intended option is not shown, discontinue and re-order from Quick Search*, Not-Taking/PRN BONIVA 150 MG TABLET 1 TAB(S) ORALLY ONCE A MONTH , Notes to Pharmacist: *Please review for potential replacement for e-prescription and drug interaction check*, Not-Taking/PRN Trelegy Ellipta 100 MCG-62.5 MCG-25 MCG/INH POWDER 1 PUFF(S) INHALED ONCE A DAY , Notes to Pharmacist: *Please review and pick correct strength-formulation from [employer] options. If intended option is not shown, discontinue and re-order from Quick Search*, Not-Taking/PRN predniSONE 20 MG Tablet 3 tabs orally Patient to call MD for frequency , Not-Taking/PRN Albuterol Sulfate (2.5 MG/3ML) 0.083% Nebulization Solution 3 ml by nebulizer every 6 hours , Not-Taking/PRN traMADol HCl ER 100 MG Tablet Extended Release 24 Hour 1 tab(s) orally once a day Objective: * Vitals: * Examination: G eneral examination: General appearance: p leasant, well-developed, well-nourished, female, in no apparent distress, speaking in full sentences. HEENT: p upils equal, round, and reactive to light and accommodation, conjunctiva are normal bilaterally, no tenderness to palpation of the sinuses, TM's without evidence of acute infection, turbinates 2+ swollen and pale inferiorly bilaterally, clear rhinorrhea is present, no polyps noted, no septal perforation, posterior oropharynx is clear, mild erythema on pharyngeal wall, no exudates, no tongue swelling, and uvula is midline. Oral cavity: n ormal, no lesions. Neck, thyroid : s upple, non-tender, no anterior cervical lymphadenopathy. Breasts : n ot performed. Heart: R RR, S1-S2, no murmurs, no rubs, no gallops. Lungs: c lear to auscultation and percussion in all lung lin, no wheezes or crackles. Abdomen: s oft, NT/ND, normal active bowel sounds. Neurologic exam: u nremarkable. Skin: normal, no rash, dermatographism, angioedema. Peripheral pulses: n ormal (2+) bilaterally. Back: n ormal. Extremities: n ormal ROM, no clubbing, no cyanosis, no edema. Genitalia: n ot performed. Assessment: * Assessment: 1. A llergic rhinitis due to pollen - J30.1 (Primary) 2 . A llergic rhinitis due to animal (cat) (dog) hair and dander - J30.81 3 . O ther allergic rhinitis - J30.89 4 . O ther chronic allergic conjunctivitis - H10.45 5 . S evere persistent asthma, uncomplicated - J45.50 6 . O ther diseases of vocal cords - J38.3 7 . G ignacio-esophageal reflux disease with esophagitis - K21.0 8 . A ngioneurotic edema, subsequent encounter - T78.3XXD 9 . Essential (primary) hypertension - I10 Plan: * Treatment: 2. A llergic rhinitis due to animal (cat) (dog) hair and dander Notes: Continue avoidance, meds and SCIT per schedule. Increase frequency PRN 3. O ther allergic rhinitis Notes: Continue avoidance, meds and SCIT per schedule. Increase frequency PRN 4. O ther chronic allergic conjunctivitis Notes: Given ocular signs and symptoms, I encouraged allergy avoidance measures and meds as above. If symptoms persist, consider adding additional medications including intraocular antihistamine/mast cell stabilizer, PRN and continue SCIT as an adjunctive measure 5. S evere persistent asthma, uncomplicated Continue PROAIR HFA aerosol, CFC free 90 mcg/inh, 2 puff(s), inhaled, 4 times a day, 90 days, 3, Refills 0; C ontinue XOLAIR powder for injection, 150 mg, 300 mg, subcutaneously, every 4 weeks; Continue BREO ELLIPTA powder, 100 mcg-25 mcg/inh, 1 puff(s), inhaled, once a day, 30 days, 1, Refills 2; C ontinue MONTELUKAST tablet, 10 mg, 1 tab(s), orally, once a day, 30 day(s), 30 Tablet, Refills 2; C ontinue ALBUTEROL SULFATE solution, 2.5 mg/3 mL (0.083%), 3 ml, by nebulizer, every 6 hours, 30 days, 30, Refills 0. Notes: Sonia continues to report less asthma symptoms with Xolair and SCIT. Will continue Xolair and SCIT, as she feels the combination of the 2 have made the biggest improvement in her asthma control, previously crediting Xolair with saving my life. -Xolair was previously denied as there is option for at home administration. Previously discussed this with Sonia and she chose to opt with at home dosing. We have discussed in detail her risk for having a reaction to the Xolair. Also aware that she needs to be seen for in office evaluation every 3 months -Will continue with at home dosing log of which was provided today. -We elected to trail Isidra previously with 10% improvement That said, it is too expensive and is back to using Breo of which she if happy with current control. -Continue to brush, floss, and rinse her mouth after ICS/LABA use and to use a spacer with both her inhalers. -AIE kept on hand at all times given risk of anaphylaxis with Xolair. May want to conider different biologic if need for oral steroids continues -AAP reviewed -Follow-up in 3 months for E&M. Advised obtaining PFT in office in the next 1-2 months of which she is agreeable 6. O ther diseases of vocal cords Notes: Sonia has intermittent paradoxical vocal cord motion, and in the acute setting, episodes of eliazar laryngospasm. It is not clear what triggers precipitate her symptoms, but her lower airway is not typically involved. She continues on a PPI as it is possible that GERD is a trigger for her symptoms. 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 -No interval episodes, consider input by second speech therapist if needed 7. G ignacio-esophageal reflux disease with esophagitis Continue NEXIUM delayed release capsule, 20 mg, 1 cap(s), orally, once a day. Notes: Reflux seen by ENT - Dr. Taylor - who performed an upper scope in 01/2015 while episode of laryngospasm was active. -Continue Nexium 40mg in AM and 20mg in PM 8. A ngioneurotic edema, subsequent encounter Notes: Sonia has a history of ER visits with upper airways symptoms in 12/2014 and in 04/2015 with probable laryngospasm over angioedema. 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 It is unclear if she experienced swelling of the throat or more likely, possible VCD, that is severe and asphyxiating. Does not appear to be HAE I or II or AAE given history and prior work-up. No interval issues. AIE on patient at all times 9. E ssential (primary) hypertension Notes:BP elevated today without symptoms of urgency or emergency, continue to monitor * Procedure Codes: G 8427 DOC MEDS VERIFIED W/PT OR RE, G9521 TOT # ED VSTS & IP HOSP<2 PAST 12 M, Otto Vuong - Inc[place]-to, [address] PT-FOCUSED HLTH RISK ASSMT, 17909 IMMUNOTHERAPY INJECTIONS * Preventive Medicine: Counseling: M edication instruction: W atch for side effects of prescribed medications, Xolair: anaphylaxis, possible association with CV disease and malignancy, Reviewed boxed warning on prescribed medication. E ducation: G ENERAL EDUCATION:, Our staff spent an additional 30 minutes in direct contact with the patient educating them on their current diagnoses and proper treatment and prevention of symptoms and the proper use of medications, MEDICATION EDUCATION:, Xolair: anaphylaxis, presenting as bronchospasm, hypotension, syncope,urticaria, and/or angioedema of the throat or tongue, Xolair adverse reaction: possible association with malignancy and CV disease, Singulair (montelukast: serious neuropsychiatric events have been reported in patients; monitor for neuropsychiatric symptoms. E ducation 2: A RC EDUCATION:, Our staff discussed the appropriate allergen avoidance measures and medication utilization including upper airway hygiene with nasal washes given the patient's clinical status and diagnoses. P atient education material sent to portal? Y es C are goal follow up plan BMI management provided Y es Above Normal BMI Follow-up D ietary management education, guidance, and counseling B P Management: PRE-HYPERTENSIVE FOLLOW-UP PLAN: P atient follow-up planned and scheduled LIFESTYLE RECOMMENDATION: H ypertension education * Follow Up: 2 Weeks,3 Months (Reason: Evaluation and Management,,SCIT) * Billing Information: * Visit Code: 82606 Office Visit, Est Pt., Level 4. Modifiers: 25 * Procedure Codes: G8427 DOC MEDS VERIFIED W/PT OR RE. G9521 TOT # ED VSTS & IP HOSP<2 PAST 12 M. Otto Vuong - Incident-to. [address] PT-FOCUSED HLTH RISK ASSMT. [id number] IMMUNOTHERAPY INJECTIONS. * Electronic signature of Otto Vuong PA-C on 06/07/2024 at 11:24 AM CDT Sign off status: Pending * Provider: Arlene Vuong PA-C Date: 0 06/07/2024 Generated for Joan meza/Isiah/Raul on: 0 06/07/2024 11:24 AM CDT History and Physical Notes * HPI (History of Present Illness) Category Sub-Category Detail Notes Category Notes *Introduction I had the pleasure of seeing Sonia Reynoso, a 63 year-old WF with GERD, VCD, ARC and persistent asthma who returns for interval evaluation and management; and SCIT. She is again alone for today's visit. She has completed cluster build-up on refromualted vials of which she tolerated with minimal issue. Now back on MM with continued benefit since undergoing reformultation. Sonia continues doing her Xolair injections at home with self-injection every 4 weeks. Tolerated last dose without adverse reactions. Prior to Covid, her last asthma flare was in February 2020. At the time she was ill with URI and wheezing. After being treated with two rounds of abx her lower respiratory symptoms resolved. She typically becomes ill every February but hase overall improved in this regard. She continues on Breo low-dose, Singulair QD and ProAir PRN, along with monthly Xolair and SCIT, which she clearly believes have made the biggest difference in her overall asthma control. She was bumped to to [facility] previously but continues Breo due to cost. She againreports minimal issues since last visit. Steroids historically worsens her reflux leading to laryngospasms. Sonia has also seen speech therapy in the past for VCD. She is currently taking Nexium 40mg AM and 20mg PM and believes her GERD is well controlled. Today, she reports no fevers, chills, night sweats or other constitutional symptoms The patient is here for scheduled specific allergen immunotherapy. Please see the attached specialty form regarding the specifics of the administration of these vaccines. As per our protocol, they must undergo a screening health questionnaire (medication changes, reaction(s) to last immunotherapy dose(s), current health status, ACT (if appropriate), self-injectable epinephrine on patient(?) and peak flow (if appropriate)). Also, the patient must wait in our office for 30 minutes after receiving immunotherapy. Furthermore, every patient must have an epinephrine pen (self-injectable) with them at the time of administration--and carry if for the following 1.5 hours after they leave our office. The patient must also have taken their antihistamine the day of the injection, preferably 2 hours prior. The consent form for SCIT (subcutaneous immunotherapy) is on file. Examination Category Sub-Category Detail Notes Category Not es General examination HEENT: pupils equal , round, and reactive to light and accommodation, conjunctiva are normal bilaterally, no tenderness to palpation of the sinuses, TM's without evidence of acute infection, turbinates 2+ swollen and pale inferiorly bilaterally, clear rhinorrhea is present, no polyps noted, no septal perforation, posterior oropharynx is clear, mild erythema on pharyngeal wall, no exudates, no tongue swelling, and uvula is midline Neck, thyroid : supple, non-tender, no anterior cervical lymphadenopathy Heart: RRR, S1-S2, no murmu rs, no rubs, no gallops Lungs: clear to auscultatio n and percussion in all lung lin, no wheezes or crackles Abdomen: soft, NT/ND, normal active bowel sounds Extremities: normal ROM, no clubb ing, no cyanosis, no edema General appearance: pleasant, well-devel oped, well-nourished, female, in no apparent distress, speaking in full sentences Skin: normal, no rash, [place] matographism, angioedema Neurologic exam: unremarkable Oral cavity: normal, no lesions Breasts : not performed Peripheral pulses: normal (2+) bilatera lly Back: normal Genitalia: not performed
--- OUTSIDE RECORDS SUMMARY | 2024-06-07 11:25 | XMS_ITS ---
Author Organization [facility] Address [address] [place] [address] Care Team Providers Care Tack Maker Name Role Phone Iker Haynes Primary Care Provider Dusty Arias Unavailable [phone] Storm Chen MD, [place] Unavailable Senthil Valenzuela Unavailable [phone] REASON FOR VISIT SCIT - Traditional Schedule Allergy Immunotherapy (Week ) Medications Medication SIG (Take, Route, Frequency, Duration) Notes Start Date End Date Status Montelukast Sodium 10 MG TAKE 1 TABLET BY MOUTH EVERY DAY FOR 90 DAYS for 90 Active Breo Ellipta 100-25 MCG/ACT INHALE 1 PUFF ONCE DAILY for 90 Active Azelastine HCl 137 MCG/SPRAY SPRAYS 2 SPRAYS INTO EACH NOSTRIL TWICE DAILY for 25 Active Albuterol Sulfate (2.5 MG/3ML) 0.083% 3 ml by nebulizer every 6 hours for 30 days Not-Taking traMADol HCl ER 100 MG 1 tab(s) orally once a day for 30 day(s) Not-Taking Trelegy Ellipta 100 MCG-62.5 MCG-25 MCG/INH 1 PUFF(S) INHALED ONCE A DAY for 30 DAYS *Please review and pick correct strength-formula tion from Medispan options. If intended option is not shown, discontinue and re-order from Quick Search* Not-Taking predniSONE 20 MG 3 tabs orally Patient to call MD for frequency for 60 days Not-Taking BONIVA 150 MG 1 TAB(S) ORALLY ONCE A MONTH for 30 DAY(S) *Please review for potential replacement for e-prescription and drug interaction check* Not-Taking traMADol HCl ER 200 MG 1 tablet Orally Once a day Not-Taking Trelegy Ellipta 100 MCG-62.5 MCG-25 MCG/INH 1 PUFF(S) INHALED ONCE A DAY for 90 DAYS *Please review and pick correct strength-formula tion from obopay options. If intended option is not shown, discontinue and re-order from Quick Search* Not-Taking Plavix 75 MG 1 tab(s) orally once a day Not-Taking TRELEGY ELLIPTA 100 mcg-62.5 mcg-25 mcg/inh 1 puff(s) inhaled once a day for 30 days Not-Taking OLOPATADINE NASAL 665 MCG/INH 2 SPRAY(S) INTRANASALLY 2 TIMES A DAY for 30 DAYS *Please review for potential replacement for e-prescription and drug interaction check* Not-Taking EpiPen 2-Jade 0.3 MG/0.3ML 0.3 mg intramuscularly once Not-Taking Tamoxifen Citrate 20 MG 1 tablet Orally Once a day Not-Taking SIT (Cluster) variable - see record per schedule subcutaneous per schedule for 999 Active Spironolactone 50 MG 1 tab(s) orally 2 times a day for 30 day(s) Active Levothyroxine Sodium 125 MCG 1 tab(s) orally once a day Active Methocarbamol 500 MG TAKE 1 TABLET BY MOUTH THREE TIMES DAILY NEEDED for 30 Active Crestor 10 MG 1 tab(s) orally once a day (at bedtime) Active Cardizem 240 1 TAB(S) ORALLY QDAY *Please rev iew and pick correct strength-formula tion from obopay options. If intended option is not shown, discontinue and re-order from Quick Search* Active cloNIDine HCl 0.1 MG 1 tab(s) orally up to TID PRN Active Nasacort Allergy 24HR 55 MCG/ACT 2 spray(s) intranasally qday - BID for 30 day(s) Active Albuterol Sulfate (2.5 MG/3ML) 0.083% 3 ml by nebulizer every 6 hours for 30 days Active CoQ-10 100 MG 1 cap(s) orally once a day Active ZyrTEC Allergy 10 MG 1 tab(s) orally once a day Active Auvi-Q 0.3 MG/0.3ML as directed intramuscularly once for 1 DAY Active NexIUM 20 MG 1 cap(s) orally once a day Active Xolair 150 MG 300 mg subcutaneously every 4 weeks Active Fish Oil 1200 MG 1 CAP ORALLY TID *Please review and pick correct strength-formula tion from obopay options. If intended option is not shown, discontinue and re-order from Quick Search* Active Vitamin D3 125 MCG (5000 UT) 1 capsule Orally Once a day Active Magnesium Glycinate 120 MG as directed Orally Active Vitamin B12 1000 MCG 1 tablet Orally Once a day Active SIT (TRADITIONAL) variable per schedule SC per schedule for 99 days Active Fosamax 70 MG 1 tablet 30 minutes before the first food, beverage or medicine of the day with plain water Orally Active Multivitamin - 1 tablet Orally Once a day Active Vitamin C 500 MG 1 tablet Orally Once a day Active Folic Acid 1 MG 1 tablet Orally Once a day Active Calcium 600 MG 1 tablet with meals Orally Twice a day Active Voltaren 1 % as directed Externally Active ALBUTEROL SULFATE 2.5 mg/3 mL (0.083%) 3 ml by nebulizer every 6 hours for 30 days Active OLOPATADINE NASAL 665 mcg/inh 2 spray(s) intranasally 2 times a day for 30 days Active Tylenol 325 MG 1 tablet as needed Orally every 6 hrs Active SIT (Traditional) variable - see record per schedule subcutaneous per schedule for 999 days Active traMADol HCl ER 200 MG 1 tablet Orally Once a day Active XOLAIR 150 mg 300 mg subcutaneously every 4 weeks Active MONTELUKAST 10 mg 1 tab(s) orally once a day for 30 day(s) Active PROAIR HFA CFC free 90 mcg/inh 2 puff(s) inhaled 4 times a day for 90 days Active AUVI-Q 0.3 mg as directed intramuscularly once for 1 DAY Active NASACORT ALLERGY 24HR 55 mcg/inh 2 spray(s) intranasally qday - BID for 30 day(s) Active EPIPEN 2-JADE 0.3 mg 0.3 mg intramuscularly once Active ZYRTEC 10 mg 1 tab(s) orally once a day Active NEXIUM 20 mg 1 cap(s) orally once a day Active Encounters Encounter Location Date Provider Diagnosis [facility] [address] [place] [address] 05/30/2024 Senthil Padron Allergic rhinitis du e to pollen J30.1 ; Other allergic rhinitis J30.89 ; Allergic rhinitis due to animal (cat) (dog) hair and dander J30.81 and Other chronic allergic conjunctivitis H10.45 Assessments Encounter Date Diagnosis (ICD Code) Assessment Notes Treatment Notes Treatment Clinical Notes Section Notes 05/30/2024 Allergic rhinitis due to pollen (ICD-10 - J30.1) 05/30/2024 Other allergic rhinitis (ICD-10 - J30.89) 05/30/2024 Allergic rhinitis due to animal (cat) (dog) hair and dander (ICD-10 - J30.81) 05/30/2024 Other chronic allergic conjunctivitis (ICD-10 - H10.45) Plan Of Treatment Next Appt Details Follow Up: As scheduled, Anne son: Provider Name:Dusty Bhandari Bairon chan, 06/07/2024 12:30:00 PM, [facility], [address], [address], Provider Name:Senthil Padron , 06/28/2024 04:30:00 PM, [address] [employer], [address] [place] [address], [phone], Progress Notes * Sonia COBB RDOB:1960 (64 yo F)Acc No.[id number]:05/30/2024 SCIT-Aeroallergen Patient: Sonia RIVERO Provider: Kushal Padron MD :1960 A ge:64 Y S ex:Female Date:05/30/2024 [facility] [facility] Pcp:Iker Haynes Subjective: * Chief Complaints: * S CIT - Traditional Schedule Allergy Immunotherapy (Week ) * HPI: * Introduction: The patient is here for scheduled immunotherapy. Please see the attached specialty form regarding the specifics of the administration of these vaccines. As per our protocol, they must undergo a screening health questionnaire (medication changes, reaction(s) to last immunotherapy dose(s), current health status, ACT (if appropriate), self-injectable epinephrine on patient(?) and peak flow (if appropriate)). Also, the patient must wait in our office for 30 minutes after receiving the vaccine(s). Furthermore, every patient must have an epinephrine pen (self-injectable) with them at the time of administration--and carry if for the following 1.5 hours after they leave our office. The patient must also have taken their antihistamine the day of the injection, preferably 2 hours prior. The consent form for SCIT (subcutaneous immunotherapy) is on file. * Medical History: * Surgical History: * Hospitalization/Major Diagno stic Procedure: * Medications: T akingNEXIUM 20 mg delayed release capsule 1 cap(s) orally once a day EPIPEN 2- JADE 0.3 mg kit 0.3 mg intramuscularly once ZYRTEC 10 mg tablet 1 tab(s) orally once a day AUVI-Q 0.3 mg kit as directed intramuscularly once NASACORT ALLERGY 24HR 55 mcg/inh spray 2 spray(s) intranasally qday - BID PROAIR HFA CFC free 90 mcg/inh aerosol 2 puff(s) inhaled 4 times a day XOLAIR 150 mg powder for injection 300 mg subcutaneously every 4 weeks MONTELUKAST 10 mg tablet 1 tab(s) orally once a day ALBUTEROL SULFATE 2.5 mg/3 mL (0.083%) solution 3 ml by nebulizer every 6 hours OLOPATADINE NASAL 665 mcg/inh spray 2 spray(s) intranasally 2 times a day SIT (Traditional) variable - see record variable - see record per schedule subcutaneous per schedule traMADol HCl ER 200 MG Tablet Extended Release 24 Hour 1 tablet Orally Once a day Tylenol 325 MG Tablet 1 tablet as needed Orally every 6 hrs Voltaren 1 % Gel as directed Externally Folic Acid 1 MG Tablet 1 tablet Orally Once a day Calcium 600 MG Tablet 1 tablet with meals Orally Twice a day Vitamin C 500 MG Tablet 1 tablet Orally Once a day Multivitamin - Tablet 1 tablet Orally Once a day Vitamin B12 1000 MCG Tablet Extended Release 1 tablet Orally Once a day Vitamin D3 125 MCG (5000 UT) Capsule 1 capsule Orally Once a day Magnesium Glycinate 120 MG Capsule as directed Orally SIT (TRADITIONAL) variable see record per schedule SC per schedule Fosamax 70 MG Tablet 1 tablet 30 minutes before the first food, beverage or medicine of the day with plain water Orally Xolair 150 MG Solution Reconstituted 300 mg subcutaneously every 4 weeks Fish Oil 1200 MG 1 CAP ORALLY TID , Notes to Pharmacist: *Please review and pick correct strength-formulation from obopay options. If intended option is not shown, discontinue and re-order from Quick Search*NexIUM 20 MG Capsule Delayed Release 1 cap(s) orally once a day ZyrTEC Allergy 10 MG Tablet 1 tab(s) orally once a day Auvi-Q 0.3 MG/0.3ML Solution Auto-injector as directed intramuscularly once Nasacort Allergy 24HR 55 MCG/ACT Aerosol 2 spray(s) intranasally qday - BID Albuterol Sulfate (2.5 MG/3ML) 0.083% Nebulization Solution 3 ml by nebulizer every 6 hours Cardizem 240 TABLET 1 TAB(S) ORALLY QDAY , Notes to Pharmacist: *Please review and pick correct strength-formulation from obopay options. If intended option is not shown, discontinue and re-order from Quick Search*cloNIDine HCl 0.1 MG Tablet 1 tab(s) orally up to TID PRN CoQ-10 100 MG Capsule 1 cap(s) orally once a day Crestor 10 MG Tablet 1 tab(s) orally once a day (at bedtime) Levothyroxine Sodium 125 MCG Capsule 1 tab(s) orally once a day Methocarbamol 500 MG Tablet TAKE 1 TABLET BY MOUTH THREE TIMES DAILY NEEDED Spironolactone 50 MG Tablet 1 tab(s) orally 2 times a day SIT (Cluster) variable - see record variable - see record per schedule subcutaneous per schedule Breo Ellipta 100-25 MCG/ACT Aerosol Powder Breath Activated INHALE 1 PUFF ONCE DAILY Azelastine HCl 137 MCG/SPRAY Solution SPRAYS 2 SPRAYS INTO EACH NOSTRIL TWICE DAILY Montelukast Sodium 10 MG Tablet TAKE 1 TABLET BY MOUTH EVERY DAY FOR 90 DAYS Taking NEXIUM 20 mg delayed release capsule 1 cap(s) orally once a day Taking EPIPEN 2-JADE 0.3 mg kit 0.3 mg intramuscularly once Taking ZYRTEC 10 mg tablet 1 tab(s) orally once a day Taking AUVI-Q 0.3 mg kit as directed intramuscularly once Taking NASACORT ALLERGY 24HR 55 mcg/inh spray 2 spray(s) intranasally qday - BID Taking PROAIR HFA CFC free 90 mcg/inh aerosol 2 puff(s) inhaled 4 times a day Taking XOLAIR 150 mg powder for injection 300 mg subcutaneously every 4 weeks Taking MONTELUKAST 10 mg tablet 1 tab(s) orally once a day Taking ALBUTEROL SULFATE 2.5 mg/3 mL (0.083%) solution 3 ml by nebulizer every 6 hours Taking OLOPATADINE NASAL 665 mcg/inh spray 2 spray(s) intranasally 2 times a day Taking SIT (Traditional) variable - see record variable - see record per schedule subcutaneous per schedule Taking traMADol HCl ER 200 MG Tablet Extended Release 24 Hour 1 tablet Orally Once a day Taking Tylenol 325 MG Tablet 1 tablet as needed Orally every 6 hrs Taking Voltaren 1 % Gel as directed Externally Taking Folic Acid 1 MG Tablet 1 tablet Orally Once a day Taking Calcium 600 MG Tablet 1 tablet with meals Orally Twice a day Taking Vitamin C 500 MG Tablet 1 tablet Orally Once a day Taking Multivitamin - Tablet 1 tablet Orally Once a day Taking Vitamin B12 1000 MCG Tablet Extended Release 1 tablet Orally Once a day Taking Vitamin D3 125 MCG (5000 UT) Capsule 1 capsule Orally Once a day Taking Magnesium Glycinate 120 MG Capsule as directed Orally Taking SIT (TRADITIONAL) variable see record per schedule SC per schedule Taking Fosamax 70 MG Tablet 1 tablet 30 minutes before the first food, beverage or medicine of the day with plain water Orally Taking Xolair 150 MG Solution Reconstituted 300 mg subcutaneously every 4 weeks Taking Fish Oil 1200 MG 1 CAP ORALLY TID , Notes to Pharmacist: *Please review and pick correct strength-formulation from obopay options. If intended option is not shown, discontinue and re-order from Quick Search*Taking NexIUM 20 MG Capsule Delayed Release 1 cap(s) orally once a day Taking ZyrTEC Allergy 10 MG Tablet 1 tab(s) orally once a day Taking Auvi-Q 0.3 MG/0.3ML Solution Auto-injector as directed intramuscularly once Taking Nasacort Allergy 24HR 55 MCG/ACT Aerosol 2 spray(s) intranasally qday - BID Taking Albuterol Sulfate (2.5 MG/3ML) 0.083% Nebulization Solution 3 ml by nebulizer every 6 hours Taking Cardizem 240 TABLET 1 TAB(S) ORALLY QDAY , Notes to Pharmacist: *Please review and pick correct strength-formulation from obopay options. If intended option is not shown, discontinue and re-order from Quick Search*Taking cloNIDine HCl 0.1 MG Tablet 1 tab(s) orally up to TID PRN Taking CoQ-10 100 MG Capsule 1 cap(s) orally once a day Taking Crestor 10 MG Tablet 1 tab(s) orally once a day (at bedtime) Taking Levothyroxine Sodium 125 MCG Capsule 1 tab(s) orally once a day Taking Methocarbamol 500 MG Tablet TAKE 1 TABLET BY MOUTH THREE TIMES DAILY NEEDED Taking Spironolactone 50 MG Tablet 1 tab(s) orally 2 times a day Taking SIT (Cluster) variable - see record variable - see record per schedule subcutaneous per schedule Taking Breo Ellipta 100-25 MCG/ACT Aerosol Powder Breath Activated INHALE 1 PUFF ONCE DAILY Taking Azelastine HCl 137 MCG/SPRAY Solution SPRAYS 2 SPRAYS INTO EACH NOSTRIL TWICE DAILY Taking Montelukast Sodium 10 MG Tablet TAKE 1 TABLET BY MOUTH EVERY DAY FOR 90 DAYS Not-Taking/PRNTamoxifen Citrate 20 MG Tablet 1 tablet Orally Once a day OLOPATADINE NASAL 665 MCG/INH SPRAY 2 SPRAY(S) INTRANASALLY 2 TIMES A DAY , Notes to Pharmacist: *Please review for potential replacement for e-prescription and drug interaction check*EpiPen 2-Jade 0.3 MG/0.3ML Solution Auto-injector 0.3 mg intramuscularly once Plavix 75 MG Tablet 1 tab(s) orally once a day TRELEGY ELLIPTA 100 mcg-62.5 mcg-25 mcg/inh powder 1 puff(s) inhaled once a day traMADol HCl ER 200 MG Tablet Extended Release 24 Hour 1 tablet Orally Once a day Trelegy Ellipta 100 MCG-62.5 MCG-25 MCG/INH POWDER 1 PUFF(S) INHALED ONCE A DAY , Notes to Pharmacist: *Please review and pick correct strength-formulation from obopay options. If intended option is not shown, discontinue and re-order from Quick Search*BONIVA 150 MG TABLET 1 TAB(S) ORALLY ONCE A MONTH , Notes to Pharmacist: *Please review for potential replacement for e-prescription and drug interaction check*Trelegy Ellipta 100 MCG-62.5 MCG-25 MCG/INH POWDER 1 PUFF(S) INHALED ONCE A DAY , Notes to Pharmacist: *Please review and pick correct strength-formulation from obopay options. If intended option is not shown, discontinue and re-order from Quick Search*predniSONE 20 MG Tablet 3 tabs orally Patient to call MD for frequency Albuterol Sulfate (2.5 MG/3ML) 0.083% Nebulization Solution 3 ml by nebulizer every 6 hours traMADol HCl ER 100 MG Tablet Extended Release 24 Hour 1 tab(s) orally once a day Not-Taking/PRN Tamoxifen Citrate 20 MG Tablet 1 tablet Orally Once a day Not-Taking/PRN OLOPATADINE NASAL 665 MCG/INH SPRAY 2 SPRAY(S) INTRANASALLY 2 TIMES A DAY , Notes to Pharmacist: *Please review for potential replacement for e-prescription and drug interaction check*Not-Taking/PRN EpiPen 2-Jade 0.3 MG/0.3ML Solution Auto-injector 0.3 mg intramuscularly once Not-Taking/PRN Plavix 75 MG Tablet 1 tab(s) orally once a day Not-Taking/PRN TRELEGY ELLIPTA 100 mcg-62.5 mcg-25 mcg/inh powder 1 puff(s) inhaled once a day Not-Taking/PRN traMADol HCl ER 200 MG Tablet Extended Release 24 Hour 1 tablet Orally Once a day Not-Taking/PRN Trelegy Ellipta 100 MCG-62.5 MCG-25 MCG/INH POWDER 1 PUFF(S) INHALED ONCE A DAY , Notes to Pharmacist: *Please review and pick correct strength-formulation from TicketForEventspan options. If intended option is not shown, discontinue and re-order from Quick Search*Not-Taking/PRN BONIVA 150 MG TABLET 1 TAB(S) ORALLY ONCE A MONTH , Notes to Pharmacist: *Please review for potential replacement for e-prescription and drug interaction check*Not-Taking/PRN Trelegy Ellipta 100 MCG-62.5 MCG-25 MCG/INH POWDER 1 PUFF(S) INHALED ONCE A DAY , Notes to Pharmacist: *Please review and pick correct strength-formulation from TicketForEventspan options. If intended option is not shown, discontinue and re-order from Quick Search*Not-Taking/PRN predniSONE 20 MG Tablet 3 tabs orally Patient to call MD for frequency Not-Taking/PRN Albuterol Sulfate (2.5 MG/3ML) 0.083% Nebulization Solution 3 ml by nebulizer every 6 hours Not- Taking/PRN traMADol HCl ER 100 MG Tablet Extended Release 24 Hour 1 tab(s) orally once a day Objective: * Vitals: Assessment: * Assessment: 1. A llergic rhinitis due to pollen - J30.1 (Primary) 2 . O ther allergic rhinitis - J30.89 3 . A llergic rhinitis due to animal (cat) (dog) hair and dander - J30.81 4 . O ther chronic allergic conjunctivitis - H10.45 Plan: * Treatment: * Procedure Codes: 9 5117 IMMUNOTHERAPY INJECTIONS * Preventive Medicine: Counseling: E xercise A void heavy lifting on days of allergy immunotherapy. M edication instruction: I njectable epinephrine education and instruction w/ discussion of signs and symptoms of anaphylaxis and reasons to seek urgent or emergent care, Watch for side effects of prescribed medications. E ducation: A ble to return demonstration of self-injectable epinephrine. * Follow Up: A s scheduled * Billing Information: * Visit Code: * Procedure Codes: 34654 IMMUNOTHERAPY INJECTIONS. * Sign off status: Completed true * Provider: Kushal Padron MD Date: 0 05/30/2024 Generated for Joan meza/Isiah/Delphineitting on: 0 06/07/2024 11:24 AM CDT History and Physical Notes * HPI (History of Present Illness) Category Sub-Category Detail Notes Category Not es *Introduction The patient is here for scheduled immunotherapy. Please see the attached specialty form regarding the specifics of the administration of these vaccines. As per our protocol, they must undergo a screening health questionnaire (medication changes, reaction(s) to last immunotherapy dose(s), current health status, ACT (if appropriate), self-injectable epinephrine on patient(?) and peak flow (if appropriate)). Also, the patient must wait in our office for 30 minutes after receiving the vaccine(s). Furthermore, every patient must have an epinephrine pen (self-injectable) with them at the time of administration--and carry if for the following 1.5 hours after they leave our office. The patient must also have taken their antihistamine the day of the injection, preferably 2 hours prior. The consent form for SCIT (subcutaneous immunotherapy) is on file.
--- OUTSIDE RECORDS SUMMARY | 2024-06-07 11:25 | XMS_ITS | Encounter Summary ---
Author Organization [facility] Address [address] [place] [id number] Care Team Providers Care Trainman Name Role Phone Iker Haynes DO Primary Care Provider + Encounter Details Date Type Department Care Team (Late st Contact Info) Description 03/17/2023 [place] [facility] Message Enc [facility] Family & Internal Medicine [facility] [address] [place] [address] Iker Haynes DO [address] [place] [address] Stopped Metformin Social History Tobacco Use Types Packs/Day Years Used Date Smoking Tobacco: Never Passive Smoke Exposure: Never Smokeless Tobacco: Never Alcohol Use Standard [...] Progress Notes * Iker Haynes DO - 03/17/2023 10:40 AM CST Stop metformin (as she has already done) and continue with counting carbs and treating with dietarychanges. Can reassess at next OV. IST SUPPLIES SALESPERSON documented in this encounter Plan of Treatment Upcoming Encounters Date Type Department Care Team (Late st Contact Info) Description 08/01/2024 1:40 PM CDT Office Visit [facility] Family & Internal Medicine [facility] [address] [place] [address] Iker Haynes DO [address] [place] [address] documented as of this encounter Visit Diagnoses Not on filedocumented in this encounter Additional Health Concerns Assessment Noted Time PHQ-9 Depression Total Score: 0 04/11/19 20 1:04 PM [employer]OR[employer] SUPPLIES SALESPERSON documented as of this encounter Care Teams Trainman Relationship Specialty Start Date End Date Iker Haynes DO [facility] [place] [address] PCP - General FAMILY PRACTICE 03/10/19 documented as of this encounter
--- OUTSIDE RECORDS SUMMARY | 2024-06-07 11:25 | XMS_ITS | Encounter Summary ---
Author Organization [facility] Address [address] [place] [address] Care Team Providers Care Juke Box Mechanic Name Role Phone [place] Iker Kushal SNOW Primary Care Provider + Encounter Details Date Type Department Care Team (Late Contact Info) Description 08/20/2022 [employer] Message Enc [facility] [address] [place] [id number] [place], [facility] Provider Air Quality Message Social History Tobacco Use Types Packs/Day Years [...] Answer Date Recorded Patient Health Questionnaire-2 Score 0 08/11/2022 Comments No Sex and Gender Information Value Date Recorded Sex Assigned at Not on file Legal Sex Female 7:15 PM CDT Gender Identity Not on file Sexual Orientation Not on file 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 fi le documented as of this encounter Plan of Treatment Upcoming Encounters Date Type Department Care Team (Late Contact Info) Description 08/01/2024 1:40 PM CDT Office Visit [facility] Family & Internal Medicine [address] [address] Iker Haynes DO [address] [place] [address] documented as of this encounter Visit Diagnoses Not on filedocumented in this encounter Additional Health Concerns Assessment Noted Time PHQ-9 Depression Total Score: 0 04/11/19 20 1:04 PM 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
--- OUTSIDE RECORDS SUMMARY | 2024-06-07 11:26 | XMS_ITS | Patient Health Record ---
Author Organization [facility] Address [address] [place] [address] Care Team Providers Care Paper Folder Name Role Phone Iker Haynes Primary Care Provider Dusty Arias Unavailable [phone] Cachorro Wells MD Unavailable Lavern Senthil Bae Unavailable [phone] [employer], Provider Unavailable Unavailab le Allergies Allergen (clinical drug ingredient) Drug/Non Drug Allergy documented on EMR Reaction Allergy Type Onset Date Status Substance with sulfonamide structure and antibacterial mechanism of action (substance) SULFA (uncoded) hives Allergy Active aspirin Aspirin hives Drug Allergy Active sulfamethoxazole / trimethoprim Bactrim hives Drug Allergy Active Reason For Referral No Information Medications Medication SIG (Take, Route, Frequency, Duration) Notes Start Date End Date Status Tamoxifen Citrate 20 MG 1 tablet Orally Once a day Not-Taking OLOPATADINE NASAL 665 MCG/INH 2 SPRAY(S) INTRANASALLY 2 TIMES A DAY for 30 DAYS *Please review for potential replacement for e-prescription and drug interaction check* Not-Taking EpiPen 2-Mike 0.3 MG/0.3ML 0.3 mg intramuscularly once Not-Taking Plavix 75 MG 1 tab(s) orally once a day Not-Taking TRELEGY ELLIPTA 100 mcg-62.5 mcg-25 mcg/inh 1 puff(s) inhaled once a day for 30 days Not-Taking traMADol HCl ER 200 MG [...] DAY FOR 90 DAYS for 90 Active Cardizem 240 1 TAB(S) ORALLY QDAY *Please rev iew and pick correct strength-formula tion from [employer] options. If intended option is not shown, [...] THREE TIMES DAILY NEEDED for 30 Active Spironolactone 50 MG 1 tab(s) orally 2 times a day for 30 day(s) Active Auvi-Q 0.3 MG/0.3ML as directed intramuscularly once for 1 DAY Active Nasacort Allergy 24HR 55 MCG/ACT 2 spray(s) intranasally qday - BID for 30 day(s) Active Albuterol Sulfate (2.5 MG/3ML) 0.083% 3 ml by nebulizer every 6 hours for 30 days Active SIT (Traditional) variable - see record per schedule subcutaneous per schedule for 999 days Active OLOPATADINE NASAL 665 mcg/inh 2 spray(s) intranasally 2 times a day for 30 days Active ALBUTEROL SULFATE 2.5 mg/3 mL (0.083%) 3 ml by nebulizer every 6 hours for 30 days Active MONTELUKAST 10 mg 1 tab(s) orally once a day for 30 day(s) Active BREO ELLIPTA 100 mcg-25 mcg/inh 1 puff(s) inhaled once a day for 30 days Active XOLAIR 150 mg 300 mg subcutaneously every 4 weeks Active PROAIR HFA CFC free 90 mcg/inh 2 puff(s) inhaled 4 times a day for 90 days Active Vitamin D3 125 MCG (5000 UT) [...] review and pick correct strength-formula tion from [employer] options. If intended option is not shown, discontinue and re-order from Quick Search* Active NexIUM 20 MG 1 cap(s) orally once a day Active ZyrTEC Allergy 10 MG 1 tab(s) orally once a day Active Multivitamin - 1 tablet Orally Once a day Active Vitamin B12 1000 MCG 1 tablet Orally Once a day Active NASACORT ALLERGY 24HR 55 mcg/inh 2 spray(s) intranasally qday - BID for 30 day(s) Active AUVI-Q 0.3 mg as directed intramuscularly once for 1 DAY Active ZYRTEC 10 mg 1 tab(s) orally once a day Active EPIPEN 2-MIKE 0.3 mg 0.3 mg intramuscularly once Active NEXIUM 20 mg 1 cap(s) orally once a day Active Vitamin C 500 MG 1 tablet Orally Once a day Active traMADol HCl ER 100 MG 1 tab(s) orally once a day for 30 day(s) Not-Taking traMADol HCl ER 200 MG 1 tablet Orally Once a day Active Tylenol 325 MG 1 tablet as needed Orally every 6 hrs Active Voltaren 1 % as directed Externally Active Folic Acid 1 MG 1 tablet Orally Once a day Active Calcium 600 MG 1 tablet with meals Orally Twice a day Active Trelegy Ellipta 100 MCG-62.5 MCG-25 MCG/INH 1 PUFF(S) INHALED ONCE A DAY for 90 DAYS *Please review and pick correct strength-formula tion from [employer] options. If intended option is not shown, discontinue and re-order from Quick Search* Not-Taking BONIVA 150 MG 1 TAB(S) ORALLY ONCE A MONTH for 30 DAY(S) *Please review for potential replacement for e-prescription and drug interaction check* Not-Taking Trelegy Ellipta 100 MCG-62.5 MCG-25 MCG/INH 1 PUFF(S) INHALED ONCE A DAY for 30 DAYS *Please review and pick correct strength-formula tion from [employer] options. If intended option is not shown, discontinue and re-order from Quick Search* Not-Taking predniSONE 20 MG 3 tabs orally Patient to call MD for frequency for 60 days Not-Taking Albuterol Sulfate (2.5 MG/3ML) 0.083% 3 ml by nebulizer every 6 hours for 30 days Not-Taking Immunizations Vaccine Route Administration Date Status Comme nts COVID-19 (Moderna) Unknown 11/28/2020 Administered Flucelvax Unknown 01/25/2019 Administered Influenza Unknown 10/24/2013 Administered Influenza Unknown 10/30/2014 Administered Influenza Unknown 11/27/2015 Administered NOC Flucelevax Quadrivalent Unknown 11/12/2019 Administered NOC Flucelvax Quadrivalent Unknown 10/27/2016 Administe red NOC Fluzone Quadrivalent Unknown 10/31/2017 Administere d NOC Fluzone Quadrivalent Unknown 03/22/2018 Refused NOC Influenza-Afluria PFS Unknown 11/17/2020 Administer ed NOC PedvaxHIB IM Intramuscular 06/07/2015 Administered NOC Pneumovax 23 Unknown 02/13/2014 Administered Social History Tobacco Use: Social History Observation Description Date Details (start date - stop date) Never Smoker NA - NA Smoking Smart Form: Question Answer Notes Are you a: never smoker Tobacco Control (Standard) Question Answer Notes Tobacco use: Nonsmoker Problems Problem Type SNOMED Code ICD Code Onset Dates Problem Status W/U Status Risk Notes Problem Eruption of skin (055852985) Rash and other nonspecific skin eruption (R21) Active confirmed Problem Candidiasis of mouth (27095909) Candidal stomatitis (B37.0) Active confirmed Problem Chronic allergic conjunctivitis (71147973) Other chronic allergic conjunctivitis (H10.45) Active confirmed Problem Allergic rhinitis caused by pollen (disorder) (71206774) Allergic rhinitis due to pollen (J30.1) Active confirmed Problem Allergic rhinitis caused by animal hair and dander (259774229594852) Allergic rhinitis due to animal (cat) (dog) hair and dander (J30.81) Active confirmed Problem Allergic rhinitis (22420962) Other allergic rhinitis (J30.89) Active confirmed Problem Uncomplicated moderate persistent asthma (496381276) Moderate persistent asthma, uncomplicated (J45.40) Active confirmed Problem Uncomplicated severe persistent asthma (761063495) Severe persistent asthma, uncomplicated (J45.50) Active confirmed Problem Angioneurotic edema (94432693) Angioneurotic edema, subsequent encounter (T78.3XXD) Active confirmed Problem Allergic rhinitis caused by pollen (disorder) (18217989) Allergic rhinitis due to pollen (J30.1) Active confirmed Problem Allergic rhinitis caused by animal hair and dander (965582045408314) Allergic rhinitis due to animal (cat) (dog) hair and dander (J30.81) Active confirmed Problem Allergic rhinitis (77656243) Other allergic rhinitis (J30.89) Active confirmed Problem Chronic allergic conjunctivitis (47524842) Other chronic allergic conjunctivitis (H10.45) Active confirmed Problem Acute sinusitis (83637302) Acute sinusitis, unspecified (J01.90) Active confirmed Problem Eruption of skin (052975591) Rash and other nonspecific skin eruption (R21) Active confirmed Problem Acute upper respiratory infection (69571490) Acute upper respiratory infection, unspecified (J06.9) Active confirmed Problem Angioneurotic edema (25022756) Angioneurotic edema, subsequent encounter (T78.3XXD) Active confirmed Problem Essential hypertension (90854944) Essential (primary) hypertension (I10) Active confirmed Problem Gastro-esophageal reflux disease with esophagitis (032241800) Gastro-esophageal reflux disease with esophagitis (K21.0) Active confirmed Problem 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) Active confirmed Problem Nonexudative age-related macular degeneration (850066261) Nonexudative age-related macular degeneration, bilateral, 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) Active confirmed Vital Signs Respiratory Rate 18 /min 09/21/2023 Oximetry 99 % 03/01/2024 Blood pressure diastolic 83 mm Hg 03/01/2024 Height 64 in 03/01/2024 Blood pressure systolic 140 mm Hg 03/01/2024 Weight 243.6 lbs 03/01/2024 BMI 41.81 kg/m2 03/01/2024 Encounters Encounter Location Date Provider Diagnosis [facility] [address] [place] [address] 08/08/2023 Provider [employer] [facility] [address] [facility] [address] [place] [address] 07/06/2023 Senthil Padron Allergic rhinitis du e to pollen J30.1 ; Allergic rhinitis due to animal (cat) (dog) hair and dander J30.81 ; Other allergic rhinitis J30.89 and Other chronic allergic conjunctivitis H10.45 [facility] [address] [place] [address] [employer] [address] [address] 08/03/2023 Senthil Padron Allergic rhinitis du e to pollen J30.1 ; Allergic rhinitis due to animal (cat) (dog) hair and dander J30.81 ; Other allergic rhinitis J30.89 and Other chronic allergic conjunctivitis H10.45 [facility] [address] [place] [address] [employer] [address] [address] 08/31/2023 Dusty Greff Allergic rhinitis du e to pollen J30.1 ; Allergic rhinitis due to animal (cat) (dog) hair and dander J30.81 ; Other allergic rhinitis J30.89 ; Other chronic allergic conjunctivitis H10.45 ; Severe persistent asthma, uncomplicated J45.50 ; Other diseases of vocal cords J38.3 ; Gastro-esophageal reflux disease with esophagitis K21.0 ; Angioneurotic edema, subsequent encounter T78.3XXD and Essential (primary) hypertension I10 [facility] [address] [place] [phone] 09/21/2023 Dusty Vuong Allergic rhinitis du e to pollen J30.1 ; Allergic rhinitis due to animal (cat) (dog) hair and dander J30.81 ; Other allergic rhinitis J30.89 ; Other chronic allergic conjunctivitis H10.45 ; Severe persistent asthma, uncomplicated J45.50 ; Other diseases of vocal cords J38.3 ; Gastro-esophageal reflux disease with esophagitis K21.0 ; Angioneurotic edema, subsequent encounter T78.3XXD and Essential (primary) hypertension I10 [facility] [address] [place] [address] [employer] [address] [place] [phone] 09/24/2023 Senthil Padron Allergic rhinitis du e to pollen J30.1 ; Allergic rhinitis due to animal (cat) (dog) hair and dander J30.81 ; Other allergic rhinitis J30.89 and Other chronic allergic conjunctivitis H10.45 [facility] [address] [place] [address] [employer] [address] [place] [phone] 09/28/2023 Senthil Padron Allergic rhinitis du e to pollen J30.1 ; Allergic rhinitis due to animal (cat) (dog) hair and dander J30.81 ; Other allergic rhinitis J30.89 and Other chronic allergic conjunctivitis H10.45 [facility] [address] [place] [address] [employer] [address] [address] 10/01/2023 Senthil Padron Allergic rhinitis du e to pollen J30.1 ; Allergic rhinitis due to animal (cat) (dog) hair and dander J30.81 ; Other allergic rhinitis J30.89 and Other chronic allergic conjunctivitis H10.45 [facility] [address] [place] [address] [employer] [address] [address] 10/05/2023 Senthil Padron Allergic rhinitis du e to pollen J30.1 ; Allergic rhinitis due to animal (cat) (dog) hair and dander J30.81 ; Other allergic rhinitis J30.89 and Other chronic allergic conjunctivitis H10.45 [facility] [address] [place] [address] 10/12/2023 Senthil Padron Allergic rhinitis du e to pollen J30.1 ; Allergic rhinitis due to animal (cat) (dog) hair and dander J30.81 ; Other allergic rhinitis J30.89 and Other chronic allergic conjunctivitis H10.45 [facility] [address] [place] [address] 10/19/2023 Senthil Padron Allergic rhinitis du e to pollen J30.1 ; Allergic rhinitis due to animal (cat) (dog) hair and dander J30.81 ; Other allergic rhinitis J30.89 and Other chronic allergic conjunctivitis H10.45 [facility] [address] [place] [phone] 10/27/2023 Senthil Padron Allergic rhinitis du e to pollen J30.1 ; Allergic rhinitis due to animal (cat) (dog) hair and dander J30.81 ; Other allergic rhinitis J30.89 and Other chronic allergic conjunctivitis H10.45 [facility] [address] [place] [address] [employer] [address] [address] 11/03/2023 Senthil Padron Allergic rhinitis du e to pollen J30.1 ; Other allergic rhinitis J30.89 ; Allergic rhinitis due to animal (cat) (dog) hair and dander J30.81 and Other chronic allergic conjunctivitis H10.45 [facility] [address] [place] [address] [employer] [address] [address] 11/10/2023 Senthil Padron Allergic rhinitis du e to pollen J30.1 ; Other allergic rhinitis J30.89 ; Allergic rhinitis due to animal (cat) (dog) hair and dander J30.81 and Other chronic allergic conjunctivitis H10.45 [facility] [address] [place] [phone] 11/16/2023 Senthil Padron Allergic rhinitis du e to pollen J30.1 ; Other allergic rhinitis J30.89 ; Allergic rhinitis due to animal (cat) (dog) hair and dander J30.81 and Other chronic allergic conjunctivitis H10.45 [facility] [address] [place] [phone] 11/23/2023 Senthil Padron Allergic rhinitis du e to pollen J30.1 ; Other allergic rhinitis J30.89 ; Allergic rhinitis due to animal (cat) (dog) hair and dander J30.81 and Other chronic allergic conjunctivitis H10.45 [facility] [address] [place] [phone] 12/07/2023 Dusty Vuong Allergic rhinitis du e to pollen J30.1 ; Allergic rhinitis due to animal (cat) (dog) hair and dander J30.81 ; Other allergic rhinitis J30.89 ; Other chronic allergic conjunctivitis H10.45 ; Severe persistent asthma, uncomplicated J45.50 ; Other diseases of vocal cords J38.3 ; Gastro-esophageal reflux disease with esophagitis K21.0 ; Angioneurotic edema, subsequent encounter T78.3XXD and Essential (primary) hypertension I10 [facility] [address] [place] [address] 12/21/2023 Senthil Padron Allergic rhinitis du e to pollen J30.1 ; Other allergic rhinitis J30.89 ; Allergic rhinitis due to animal (cat) (dog) hair and dander J30.81 and Other chronic allergic conjunctivitis H10.45 [facility] [address] [place] [phone] 01/04/2024 Senthil Vito Allergic rhinitis du e to pollen J30.1 ; Other allergic rhinitis J30.89 ; Allergic rhinitis due to animal (cat) (dog) hair and dander J30.81 and Other chronic allergic conjunctivitis H10.45 [facility] [address] [place] [phone] 01/20/2024 Senthil Vito Allergic rhinitis du e to pollen J30.1 ; Other allergic rhinitis J30.89 ; Allergic rhinitis due to animal (cat) (dog) hair and dander J30.81 and Other chronic allergic conjunctivitis H10.45 [facility] [address] [place] [phone] 02/15/2024 Senthil Vito Allergic rhinitis du e to pollen J30.1 ; Other allergic rhinitis J30.89 ; Allergic rhinitis due to animal (cat) (dog) hair and dander J30.81 and Other chronic allergic conjunctivitis H10.45 [facility] [address] [place] [phone] 02/25/2024 Senthil Vito Allergic rhinitis du e to pollen J30.1 ; Other allergic rhinitis J30.89 ; Allergic rhinitis due to animal (cat) (dog) hair and dander J30.81 and Other chronic allergic conjunctivitis H10.[address] [address] 03/01/2024 Dusty Vuong Allergic rhinitis du e to pollen J30.1 ; Allergic rhinitis due to animal (cat) (dog) hair and dander J30.81 ; Other allergic rhinitis J30.89 ; Other chronic allergic conjunctivitis H10.45 ; Severe persistent asthma, uncomplicated J45.50 ; Other diseases of vocal cords J38.3 ; Gastro-esophageal reflux disease with esophagitis K21.0 ; Angioneurotic edema, subsequent encounter T78.3XXD and Essential (primary) hypertension I10 [facility] [address] [place] [phone] 03/28/2024 Senthil Padron Allergic rhinitis du e to pollen J30.1 ; Other allergic rhinitis J30.89 ; Allergic rhinitis due to animal (cat) (dog) hair and dander J30.81 and Other chronic allergic conjunctivitis H10.45 [facility] [address] [facility] [employer] [address] [place] [phone] 04/25/2024 Senthil Padron Allergic rhinitis du e to pollen J30.1 ; Other allergic rhinitis J30.89 ; Allergic rhinitis due to animal (cat) (dog) hair and dander J30.81 and Other chronic allergic conjunctivitis H10.45 [facility] [address] [facility] [address] [place] [phone] 05/30/2024 Senthil Padron Allergic rhinitis du e to pollen J30.1 ; Other allergic rhinitis J30.89 ; Allergic rhinitis due to animal (cat) (dog) hair and dander J30.81 and Other chronic allergic conjunctivitis H10.45 [facility] [address] [place] [address] 06/08/2023 Senthil Vito [facility] [address] [place] [address] [place] [phone] 06/15/2023 Senthil Vito [facility] [address] [place] [address] 08/17/2023 Dusty Vuong [facility] [address] [place] [address] 08/19/2023 Dusty Vuong [address] [address] 09/11/2023 Dusty Vuong [facility] [address] [place] [address] [place] [phone] 09/16/2023 Dusty Vuong [facility] [address] [place] [address] [place] [phone] 05/10/2024 Dusty Vuong [address] [place] [phone] 08/21/2023 Dusty Vuong [address] [place] [phone] 10/29/2023 Dusty Vuong Severe persistent asthma, uncomplicated J45.50 [facility] [address] [place] [address] [place] [phone] 10/29/2023 Dusty Vuong Severe persistent asthma, uncomplicated J45.50 [facility] [place] [address] [facility] [address] [place] [address] 03/16/2024 Dusty Vuogn Allergic rhinitis du e to animal (cat) (dog) hair and dander J30.81 Assessments Encounter Date Diagnosis (ICD Code) Assessment Notes Treatment Notes Treatment Clinical Notes Section Notes 07/06/2023 Allergic rhinitis due to pollen (ICD-10 - J30.1) 08/31/2023 Allergic rhinitis due to pollen (ICD-10 - J30.1) Sonia clearly suffers from atopic disease given prior skin tests and history. Accordingly, we have encouraged compliance with her aggressive medication regimen, nasal washes and allergy-specific avoidance measures. She continues to tolerate SCIT without large locals or systemic reactions. -Feels SCIT is not as beneficial this past year. We underwent additonal SPT to trees and perineals allergens of which multiple additional allergens were found. Currently set to undergo SCIT with reformulated vials awaiting to be made. Reminded her there will be an 8 week build-up assoicated with this. - Continue nasal antihistamine -Continue to premedicate with Zyrtec -AIE up to date - Return in 2-3 weeks to restart SCIT on reformulated vials 08/31/2023 Allergic rhinitis due to animal (cat) (dog) hair and dander (ICD-10 - J30.81) Continue avoidance, meds and SCIT per schedule. Increase frequency PRN 09/21/2023 Allergic rhinitis due to pollen (ICD-10 - J30.1) Sonia clearly suffers from atopic disease given prior skin tests and history. Accordingly, we have encouraged compliance with her aggressive medication regimen, nasal washes and allergy-specific avoidance measures. She continues to tolerate SCIT without large locals or systemic reactions. -Feels SCIT is not as beneficial this past year. We underwent additonal SPT to trees and perineals allergens of which multiple additional allergens were found. We elected to undergo Cluster build-up today with reformulated vials. Procedure tolerated today without issue. - Continue nasal antihistamine -Continue to premedicate with Zyrtec -AIE up to date - She will continue to recieve SCIT twice a week through build-up as her schedule allowd. Return later this week for SCIT and in 6-8 weeks for E&M 09/21/2023 Allergic rhinitis due to animal (cat) (dog) hair and dander (ICD-10 - J30.81) Continue avoidance, meds and SCIT per schedule. Increase frequency PRN 08/03/2023 Allergic rhinitis due to pollen (ICD-10 - J30.1) 09/24/2023 Allergic rhinitis due to pollen (ICD-10 - J30.1) 09/28/2023 Allergic rhinitis due to pollen (ICD-10 - J30.1) 10/01/2023 Allergic rhinitis due to pollen (ICD-10 - J30.1) 10/05/2023 Allergic rhinitis due to pollen (ICD-10 - J30.1) 10/12/2023 Allergic rhinitis due to pollen (ICD-10 - J30.1) 10/19/2023 Allergic rhinitis due to pollen (ICD-10 - J30.1) 10/27/2023 Allergic rhinitis due to pollen (ICD-10 - J30.1) 10/29/2023 Severe persistent asthma, uncomplicated (ICD-10 - J45.50) 10/29/2023 Severe persistent asthma, uncomplicated (ICD-10 - J45.50) 11/03/2023 Allergic rhinitis due to pollen (ICD-10 - J30.1) 11/03/2023 Other allergic rhinitis (ICD-10 - J30.89) 11/10/2023 Allergic rhinitis due to pollen (ICD-10 - J30.1) 11/10/2023 Other allergic rhinitis (ICD-10 - J30.89) 11/16/2023 Allergic rhinitis due to pollen (ICD-10 - J30.1) 11/16/2023 Other allergic rhinitis (ICD-10 - J30.89) 11/23/2023 Allergic rhinitis due to pollen (ICD-10 - J30.1) 11/23/2023 Other allergic rhinitis (ICD-10 - J30.89) 12/07/2023 Allergic rhinitis due to pollen (ICD-10 - J30.1) Sonia clearly suffers from atopic disease given prior skin tests and history. Accordingly, we have encouraged compliance with her aggressive medication regimen, nasal washes and allergy-specific avoidance measures. We underwent additonal SPT to trees and perineals allergens of which multiple additional allergens were found. She has since finished cluster build-up on reformulated vials with significant benefit reproted. Set to reach MM soon. Procedure tolerated today without issue. - Continue nasal antihistamine -Continue to premedicate with Zyrtec -AIE up to date -Return per schedule for SCIT and 3 months for E&M 12/07/2023 Allergic rhinitis due to animal (cat) (dog) hair and dander (ICD-10 - J30.81) Continue avoidance, meds and SCIT per schedule. Increase frequency PRN 12/21/2023 Allergic rhinitis due to pollen (ICD-10 - J30.1) 12/21/2023 Other allergic rhinitis (ICD-10 - J30.89) 01/04/2024 Allergic rhinitis due to pollen (ICD-10 - J30.1) 01/04/2024 Other allergic rhinitis (ICD-10 - J30.89) 01/20/2024 Allergic rhinitis due to pollen (ICD-10 - J30.1) 01/20/2024 Other allergic rhinitis (ICD-10 - J30.89) 02/15/2024 Allergic rhinitis due to pollen (ICD-10 - J30.1) 02/15/2024 Other allergic rhinitis (ICD-10 - J30.89) 02/25/2024 Allergic rhinitis due to pollen (ICD-10 - J30.1) 02/25/2024 Other allergic rhinitis (ICD-10 - J30.89) 03/01/2024 Allergic rhinitis due to pollen (ICD-10 - [...] for SCIT and 3 months for E&M 03/01/2024 Allergic rhinitis due to animal (cat) (dog) hair and dander (ICD-10 - J30.81) Continue avoidance, meds and SCIT per schedule. Increase frequency PRN 03/16/2024 Allergic rhinitis due to animal (cat) (dog) hair and dander (ICD-10 - J30.81) 03/28/2024 Allergic rhinitis due to pollen (ICD-10 - J30.1) 03/28/2024 Other allergic rhinitis (ICD-10 - J30.89) 04/25/2024 Allergic rhinitis due to pollen (ICD-10 - J30.1) 04/25/2024 Other allergic rhinitis (ICD-10 - J30.89) 05/30/2024 Allergic rhinitis due to pollen (ICD-10 - J30.1) 05/30/2024 Other allergic rhinitis (ICD-10 - J30.89) 05/30/2024 Allergic rhinitis due to animal (cat) (dog) hair and dander (ICD-10 - J30.81) 04/25/2024 Allergic rhinitis due to animal (cat) (dog) hair and dander (ICD-10 - J30.81) 03/28/2024 Allergic rhinitis due to animal (cat) (dog) hair and dander (ICD-10 - J30.81) 03/01/2024 Other allergic rhinitis (ICD-10 - J30.89) Continue avoidance, meds and SCIT per schedule. Increase frequency PRN 02/25/2024 Allergic rhinitis due to animal (cat) (dog) hair and dander (ICD-10 - J30.81) 02/15/2024 Allergic rhinitis due to animal (cat) (dog) hair and dander (ICD-10 - J30.81) 01/20/2024 Allergic rhinitis due to animal (cat) (dog) hair and dander (ICD-10 - J30.81) 01/04/2024 Allergic rhinitis due to animal (cat) (dog) hair and dander (ICD-10 - J30.81) 12/21/2023 Allergic rhinitis due to animal (cat) (dog) hair and dander (ICD-10 - J30.81) 12/07/2023 Other allergic rhinitis (ICD-10 - J30.89) Continue avoidance, meds and SCIT per schedule. Increase frequency PRN 11/23/2023 Allergic rhinitis due to animal (cat) (dog) hair and dander (ICD-10 - J30.81) 11/16/2023 Allergic rhinitis due to animal (cat) (dog) hair and dander (ICD-10 - J30.81) 11/10/2023 Allergic rhinitis due to animal (cat) (dog) hair and dander (ICD-10 - J30.81) 11/03/2023 Allergic rhinitis due to animal (cat) (dog) hair and dander (ICD-10 - J30.81) 10/27/2023 Allergic rhinitis due to animal (cat) (dog) hair and dander (ICD-10 - J30.81) 10/19/2023 Allergic rhinitis due to animal (cat) (dog) hair and dander (ICD-10 - J30.81) 10/12/2023 Allergic rhinitis due to animal (cat) (dog) hair and dander (ICD-10 - J30.81) 10/05/2023 Allergic rhinitis due to animal (cat) (dog) hair and dander (ICD-10 - J30.81) 10/01/2023 Allergic rhinitis due to animal (cat) (dog) hair and dander (ICD-10 - J30.81) 09/28/2023 Allergic rhinitis due to animal (cat) (dog) hair and dander (ICD-10 - J30.81) 09/24/2023 Allergic rhinitis due to animal (cat) (dog) hair and dander (ICD-10 - J30.81) 08/03/2023 Allergic rhinitis due to animal (cat) (dog) hair and dander (ICD-10 - J30.81) 09/21/2023 Other allergic rhinitis (ICD-10 - J30.89) Continue avoidance, meds and SCIT per schedule. Increase frequency PRN 08/31/2023 Other allergic rhinitis (ICD-10 - J30.89) Continue avoidance, meds and SCIT per schedule. Increase frequency PRN 07/06/2023 Allergic rhinitis due to animal (cat) (dog) hair and dander (ICD-10 - J30.81) 07/06/2023 Other allergic rhinitis (ICD-10 - J30.89) 08/31/2023 Other chronic allergic conjunctivitis (ICD-10 - H10.45) Given ocular signs and symptoms, I encouraged allergy avoidance measures and meds as above. If symptoms persist, consider adding additional medications including intraocular antihistamine/ma st cell stabilizer, PRN and continue SCIT as an adjunctive measure 09/21/2023 Other chronic allergic conjunctivitis (ICD-10 - H10.45) Given ocular signs and symptoms, I encouraged allergy avoidance measures and meds as above. If symptoms persist, consider adding additional medications including intraocular antihistamine/ma st cell stabilizer, PRN and continue SCIT as an adjunctive measure 08/03/2023 Other allergic rhinitis (ICD-10 - J30.89) 09/24/2023 Other allergic rhinitis (ICD-10 - J30.89) 09/28/2023 Other allergic rhinitis (ICD-10 - J30.89) 10/01/2023 Other allergic rhinitis (ICD-10 - J30.89) 10/05/2023 Other allergic rhinitis (ICD-10 - J30.89) 10/12/2023 Other allergic rhinitis (ICD-10 - J30.89) 10/19/2023 Other allergic rhinitis (ICD-10 - J30.89) 10/27/2023 Other allergic rhinitis (ICD-10 - J30.89) 11/03/2023 Other chronic allergic conjunctivitis (ICD-10 - H10.45) 11/10/2023 Other chronic allergic conjunctivitis (ICD-10 - H10.45) 11/16/2023 Other chronic allergic conjunctivitis (ICD-10 - H10.45) 11/23/2023 Other chronic allergic conjunctivitis (ICD-10 - H10.45) 12/07/2023 Other chronic allergic conjunctivitis (ICD-10 - H10.45) Given ocular signs and symptoms, I encouraged allergy avoidance measures and meds as above. If symptoms persist, consider adding additional medications including intraocular antihistamine/ma st cell stabilizer, PRN and continue SCIT as an adjunctive measure 12/21/2023 Other chronic allergic conjunctivitis (ICD-10 - H10.45) 01/04/2024 Other chronic allergic conjunctivitis (ICD-10 - H10.45) 01/20/2024 Other chronic allergic conjunctivitis (ICD-10 - H10.45) 02/15/2024 Other chronic allergic conjunctivitis (ICD-10 - H10.45) 02/25/2024 Other chronic allergic conjunctivitis (ICD-10 - H10.45) 03/01/2024 Other chronic allergic conjunctivitis (ICD-10 - H10.45) Given ocular signs and symptoms, I encouraged allergy avoidance measures and meds as above. If symptoms persist, consider adding additional medications including intraocular antihistamine/ma st cell stabilizer, PRN and continue SCIT as an adjunctive measure 03/28/2024 Other chronic allergic conjunctivitis (ICD-10 - H10.45) 04/25/2024 Other chronic allergic conjunctivitis (ICD-10 - H10.45) 05/30/2024 Other chronic allergic conjunctivitis (ICD-10 - H10.45) 03/01/2024 Severe persistent asthma, uncomplicated (ICD-10 - J45.50) [...] provided today. - We elected to trail Isidra previously with 10% [...] 1-2 months of which she is agreeable 12/07/2023 Severe persistent asthma, uncomplicated (ICD-10 - J45.50) [...] -Will continue with at home dosing log - We elected to trail Treashley previously with 10% improvement That said, it is too expensive and is back to using Breo. -Continue to brush, floss, and rinse her mouth after ICS/LABA use and to use a spacer with both her inhalers. -AIE kept on hand at all times given risk of anaphylaxis with Xolair. May want to conider different biologic if need for oral steroids continues -AAP reviewed -Follow-up in 3 months for E&M 10/27/2023 Other chronic allergic conjunctivitis (ICD-10 - H10.45) 10/19/2023 Other chronic allergic conjunctivitis (ICD-10 - H10.45) 10/12/2023 Other chronic allergic conjunctivitis (ICD-10 - H10.45) 10/05/2023 Other chronic allergic conjunctivitis (ICD-10 - H10.45) 10/01/2023 Other chronic allergic conjunctivitis (ICD-10 - H10.45) 09/28/2023 Other chronic allergic conjunctivitis (ICD-10 - H10.45) 09/24/2023 Other chronic allergic conjunctivitis (ICD-10 - H10.45) 08/03/2023 Other chronic allergic conjunctivitis (ICD-10 - H10.45) 09/21/2023 Severe persistent asthma, uncomplicated (ICD-10 - J45.50) [...] -Will continue with at home dosing log - We elected to trail Trelegy previously with 10% improvement That said, it is too expensive and is back to using Breo. -Continue to brush, floss, and rinse her mouth after ICS/LABA use and to use a spacer with both her inhalers. -AIE kept on hand at all times given risk of anaphylaxis with Xolair. May want to conider different biologic if need for oral steroids continues -AAP reviewed -Follow-up in 3 months for E&M 08/31/2023 Severe persistent asthma, uncomplicated (ICD-10 - J45.50) [...] -Will continue with at home dosing log - We elected to trail Isidra previously with 10% improvement That said, it is too expensive and is back to using Breo. -Continue to brush, floss, and rinse her mouth after ICS/LABA use and to use a spacer with both her inhalers. -AIE kept on hand at all times given risk of anaphylaxis with Xolair. May want to conider different biologic if need for oral steroids continues -AAP reviewed -Follow-up in 3 months for E&M 07/06/2023 Other chronic allergic conjunctivitis (ICD-10 - H10.45) 08/31/2023 Other diseases of vocal cords (ICD-10 - [...] input by second speech therapist if needed 09/21/2023 Other diseases of vocal cords (ICD-10 - [...] input by second speech therapist if needed 12/07/2023 Other diseases of vocal cords (ICD-10 - [...] input by second speech therapist if needed 03/01/2024 Other diseases of vocal cords (ICD-10 - [...] input by second speech therapist if needed 03/01/2024 Gastro-esophageal reflux disease with esophagitis (ICD-10 - K21.0) Reflux seen by ENT - Dr. Taylor - who performed an upper scope in 01/2015 while episode of laryngospasm was active. -Continue Nexium 40mg in AM and 20mg in PM 12/07/2023 Gastro-esophageal reflux disease with esophagitis (ICD-10 - K21.0) Reflux seen by ENT - Dr. Taylor - who performed an upper scope in 01/2015 while episode of laryngospasm was active. -Continue Nexium 40mg in AM and 20mg in PM 09/21/2023 Gastro-esophageal reflux disease with esophagitis (ICD-10 - K21.0) Reflux seen by ENT - Dr. Taylor - who performed an upper scope in 01/2015 while episode of laryngospasm was active. -Continue Nexium 40mg in AM and 20mg in PM 08/31/2023 Gastro-esophageal reflux disease with esophagitis (ICD-10 - K21.0) Reflux seen by ENT - Dr. Taylor - who performed an upper scope in 01/2015 while episode of laryngospasm was active. -Continue Nexium 40mg in AM and 20mg in PM 08/31/2023 Angioneurotic edema, subsequent encounter (ICD-10 - T78.3XXD) [...] issues. AIE on patient at all times 09/21/2023 Angioneurotic edema, subsequent encounter (ICD-10 - T78.3XXD) [...] issues. AIE on patient at all times 12/07/2023 Angioneurotic edema, subsequent encounter (ICD-10 - T78.3XXD) [...] issues. AIE on patient at all times 03/01/2024 Angioneurotic edema, subsequent encounter (ICD-10 - T78.3XXD) [...] issues. AIE on patient at all times 03/01/2024 Essential (primary) hypertension (ICD-10 - I10) BP elevated today without symptoms of urgency or emergency, continue to monitor 12/07/2023 Essential (primary) hypertension (ICD-10 - I10) BP elevated today without symptoms of urgency or emergency, continue to monitor 09/21/2023 Essential (primary) hypertension (ICD-10 - I10) BP elevated today without symptoms of urgency or emergency, continue to monitor 08/31/2023 Essential (primary) hypertension (ICD-10 - I10) BP elevated today without symptoms of urgency or emergency, continue to monitor 08/31/2023 Other 09/21/2023 Other 09/28/2023 Other 09/24/2023 Other 10/01/2023 Other 10/05/2023 Other 10/12/2023 Other 10/19/2023 Other 10/27/2023 Other 12/07/2023 Other 03/01/2024 Other 06/07/2024 Other Plan Of Treatment Pending Test Test Name Order Date Spirometry 08/25/2022 Next Appt Details Provider Name:Dusty Bhandari Bairon chan, 06/07/2024 12:30:00 PM, [address], [address], Provider Name:Senthil Padron , 06/28/2024 04:30:00 PM, [address], [address], [place], [address], Insurance Providers Payer Name Payer Address Payer Phone Subscriber Number Group Number Insured Name Patient Relationship to Insured Coverage Start Date Coverage End Date [employer] Choice POS II [address] [place] [address] [id number] Sonia Reynoso Self - patient is the insured Medical (General) History Medical History History ICD Code Pulmonary embolism, septic Palpitations ASTHMA NOS Hypothyroidism NOS Benign hypertension SLEEP APNEA NOS Hyperlipidemia DVT Vocal Cord Dysfunction Nonexudative age-related macular degener ation, bilateral, early dry stage H35.3131 Macular degeneration atypical duct hyperplasia Surgical History Surgery Date(Month/Year) ARTHROSCOPY KNEE SURG LEFT 1980 SINUS SURGERY PROCEDURE 1985 1987 LEFT ARM CRUSHED 1994 ABLATION 1992 CHOLEYSTECTOMY 2009 UTERINE POLYP REMOVAL 2016 cataract removal 11/2021, 01/2022 Left breast biopsy 08/2023 Hospitalization History Reason Date(Month/Year) ASTHMA (4 DAYS) 2014 PULMONARY EMBOLISM (3 DAYS) 2003 (7 DAYS) 1987 PLEURISY ( 3 DAYS) 1974
--- OUTSIDE RECORDS SUMMARY | 2024-06-07 11:26 | XMS_ITS | Clinical Summary ---
Author Organization [facility] Address [address] [place] [address] Care Team Providers Care High School Teacher Name Role Phone Korey Dorman MD Primary Care Provider [phone] Source Comments [facility],non-owned Affiliates and Associated Physician Practices is amultiple site organization consisting of ambulatory clinics and hospital sitesin [place], [place], [place] and [place]. This disclosure is being madepursuant to the Care Everywhere program and may not contain all information available regarding this patient. Last updated 17.[facility] Allergies Active Allergy Reactions Criticality Noted Date Comments Aspirin Urticaria Medium 03/03/2017 Fenofibrate Rash Medium 08/02/2018 rash rash Pravastatin Myalgias Medium 08/02/2018 myalgias myalgias Simvastatin Myalgias Medium 08/02/2018 myalgias myalgias Sulfa Drugs Urticaria Medium 03/03/2017 Medications * Be aware that medications may not be up to date on this document. Alwaysverify current medications with the patient. Budesonide-Form oterol Fumarate (SYMBICORT IN) Activ e Montelukast Sodium (SINGULAIR PO) Activ e Thyroid (LEVOTHYROXINE- LIOTHYRONINE PO) Active Clopidogrel Bisulfate (PLAVIX PO) Active DilTIAZem HCl (CARDIZEM PO) Active Esomeprazole Magnesium (NEXIUM PO) Active SPIRONOLACTONE PO Active Mometasone Furoate (NASONEX NA) Active Azelastine HCl (ASTELIN NA) Active Coenzyme Q10 (CO Q 10 PO) Active OXYBUTYNIN CHLORIDE PO Active EPINEPHrine (EPI PEN JR) 0.15 MG/0.3ML auto-injector pen Inject 0.15 mg into muscle Active ALBUTEROL IN Active hydrocortisone valerate (WESTCORT) 0.2 % cream Apply to affected area 3 times daily 60 g 05/22/2018 Active Acetaminophen-C odeine (TYLENOL WITH CODEINE #3 PO) Active Fluticasone Propionate (FLONASE NA) Active rosuvastatin (CRESTOR) 10 MG tablet Take 10 mg by mouth once daily Active cetirizine (ZYRTEC ALLERGY) 10 MG gel capsule Take 10 mg by mouth once daily Active Active Problems Problem Noted Date Diagnosed Date Other diseases of vocal cords 05/29/2015 Family History Medical History Relation Name Comments Cancer - Prostate Father Other - Cardiac Father CHF Arthritis - Osteo Mother Hyperlipidemia Mother Hypertension Mother Relation Name Status Comments Father Mother Social History Tobacco Use Types Packs/Day Years Used Date Smoking Tobacco: Never Smokeless Tobacco: Never Tobacco Cessation:Counseling Given: Yes Comments No Sex and Gender Information Value Date Recorded Sex Assigned at Not on file Legal Sex Female 5:58 PM CLOTH STOCK SORTER Gender Identity Not on file Sexual Orientation Not on file Last Filed Vital Signs Vital Sign Reading Time Taken Comments Blood Pressure 120/78 02/19/2020 11:41 AM CLOTH STOCK SORTER Pulse 81 02/19/2020 11:41 AM CLOTH STOCK SORTER Temperature 37.1 C (98.8 F) 02/19/2020 11:41 AM CLOTH STOCK SORTER Respiratory Rate 14 02/19/2020 11:41 AM CLOTH STOCK SORTER Oxygen Saturation 99% 02/19/2020 11:41 AM CLOTH STOCK SORTER Inhaled Oxygen Concentration - - Weight 111.1 kg (245 lb) 02/19/2020 11:41 AM CLOTH STOCK SORTER Height 165.1 cm (5' 5 ) 02/19/2020 11:41 AM CLOTH STOCK SORTER Body Mass Index 40.77 02/19/2020 11:41 AM CLOTH STOCK SORTER Plan of Treatment Health Maintenance Due Date Last Done Comments BONE DENSITY TESTING 1960 COLOGUARD (AGES 45-75) - COLON CA SCREENING 1960 COLON MONITORING 1959 COLONOSCOPY - COLON CA SCREENING 1959 CT COLONOGRAPHY - COLON CA SCREENING 1960 Colorectal Cancer Screening 1960 FIT - COLON CA SCREENING 1959 FLEX SIG - COLON CA SCREENING 1960 MAMMOGRAM 1960 PAP SMEAR 1959 HIV SCREENING 1974 HEPATITIS C SCREENING 04/07/1977 DTAP/TDAP/TD VACCINES (1 - Tdap) 1978 PNEUMOCOCCAL VACCINE 50+ (1 of 1 - PCV) 2009 ZOSTER VACCINE (1 of 2) 2009 SCREENING FOR DIABETES 05/22/2018 Respiratory Syncytial Virus (RSV) Vaccine Pt: or over 60 yrs (1 - Risk 60-74 years 1-dose series) 2019 COVID-19 VACCINE (1 - 2023- season) 2023 DEPRESSION SCREENING 02/24/2024 INFLUENZA VACCINE (Season Ended) 2024 11/12/2019, 01/25/2019, 10/28/2018, Additional history exists HEPATITIS B VACCINE Aged Out No longe r eligible based on patient's age to complete this topic HIB VACCINE Aged Out No longer eligi ble based on patient's age to complete this topic HPV VACCINE Aged Out No longer eligi ble based on patient's age to complete this topic MENINGOCOCCAL (Group B) VACCINE SHARED DECISION-MAKING Aged Out No longer eligible based on patient's age to complete this topic MENINGOCOCCAL GROUPS A/C/Y/W VACCINE Aged Out No longer eligible based on patient's age to complete this topic Insurance [employer] * Guarantor: BLAKE COBB Account Type Relation to Patient Date of Phone Billing Address Personal/Family [phone] [place] [address] [employer] * Guarantor: BLAKE COBB Account Type Relation to Patient Date of Phone Billing Address Personal/Family [address] [place] [address] [employer] * Guarantor: BLAKE COBB Account Type Relation to Patient Date of Phone Billing Address Personal/Family [address] [place] [address] [employer] Care Teams High School Teacher Relationship Specialty Start Date End Date Korey Dorman MD [address] [place] [address] PCP - General Family Medicine 03/03/17
== END 2024-06-07 10:26 | disposition home or self-care (01) ==
PROVIDERS: PCP Student in an Organized Health Care Education/Training Program; Referring Provider Obstetrics & Gynecology; Visit Provider Physician Assistant Surgical
DX: N63.11 Unspecified lump in the right breast, upper outer quadrant (principal); N60.92 Unspecified benign mammary dysplasia of left breast
CPT/HCPCS: 76642; 77062; 77066; G0279

== ENCOUNTER 2024-12-08 13:36 | Outpatient (CLI) | payer OTHER, SELFPAY ==
--- OUTSIDE RECORDS SUMMARY | 2024-10-27 11:20 | XMS_ITS ---
Author Organization [facility] [place] ([address]) Address [address] [place] [address] Care Team Providers Care Hydroelectric Plant Electrical Engineer Name Role Phone Iker Haynes Primary Care Provider Dusty Arias Unavailable [phone] Storm Chen MD, Cachorro Unavailable Lavern Senthil Bae Unavailable [phone] REASON FOR VISIT SCIT - Traditional Schedule Allergy Immunotherapy (Week ) Social History Sex Assigned At : Social History Observation Description Sex Assigned At Female Encounters Encounter Location Date Provider Diagnosis [facility] [address] [place] [address] 10/27/2024 Senthil Padron Allergic rhinitis du e [...] Up: As scheduled, Anne son: Provider Name:Senthil PerazaChai Padron , 12/27/2024 04:20:00 PM, [address] [facility] [address], [place], [address], Provider Name:Patrica Meeks belkis, 02/13/2025 02:00:00 PM, [address] [facility], [address], [place], [address], Progress Notes * Sonia COBB RDOB:1960 (64 yo F)Acc No.[id number]:10/27/2024 SCIT-Aeroallergen Patient: Sam DONNELLY Sonia Bills Provider: Kushal Padron MD :1960 A ge:64 Y S ex:Female Date:10/27/2024 [address] Pcp:Iker Haynes Subjective: * Chief Complaints: [...] Information: * Visit Code: * Procedure Codes: 98691 IMMUNOTHERAPY INJECTIONS. * Electronic signature of Eliceo Padron MD, FAAAAI on 12/08/2024 at 03:35 PM CDT Sign off status: Pending * Provider: Kushal Padron MD Date: 0 10/27/2024 Generated for Berniei susana/Isiah/eTransmitting on: 1 03:35 PM CDT History and Physical Notes * HPI [...]
--- NOTE | ~2024-12-08 | MR_ITS ---
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 20 cc MultiHance administered intravenously. COMPARISON: MRI dated 07/16/2023 and diagnostic ultrasound with mammogram dated 06/07/2024 FINDINGS: There are scattered areas of fibroglandular content. There are no abnormalities on the precontrast sequences. There is moderate background parenchymal enhancement. No enhancing lesions following contrast administration. No areas of enhancement meeting threshold criteria on CAD analysis. No evidence of signal abnormalities in the axillary or internal mammary node distributions. LEFT BREAST: No signal abnormalities on precontrast sequences. There is moderate background parenchymal enhancement. No enhancing lesions following contrast administration. No areas of enhancement meeting threshold criteria on CAD analysis. No evidence of signal abnormalities in the axillary or internal mammary node distributions.] IMPRESSION: 1: Right breast: Negative. No evidence of malignancy. BI-RADS category 1. Recommend annual mammography follow-up. 2: Left breast: Negative. No evidence of malignancy. BI-RADS category 1. Recommend annual mammography follow-up. Follow-up MRI may be useful for supplementing mammographic evaluation as clinically indicated. Reviewed, dictated and finalized at location O. IMPRESSION: 1: Right breast: Negative. No evidence of malignancy. BI-RADS category 1. Recommend annual mammography follow-up. 2: Left breast: Negative. No evidence of malignancy. BI-RADS category 1. Re commend annual mammography follow-up. Follow-up MRI may be useful for supplementing mammographic evaluation as clinic ally indicated.
--- OUTSIDE RECORDS SUMMARY | 2024-12-08 15:35 | XMS_ITS | Encounter Summary ---
Author Organization [facility] Address [address] [place] [address] Care Team Providers Care Outsole Compressor Name Role Phone Iker Haynes DO Primary Care Provider + Encounter Details Date Type Department Care Team (Late st Contact Info) Description 10/11/2021 authorGEN Message Enc [facility] Family & Internal Medicine [facility] [address] [place] [address] Iker Haynes DO [address] [place] [address] Request for surgery release Social [...] Information Value Date Recorded Sex Assigned at Female 08/01/2024 2:32 PM CDT Legal Sex Female 7:15 PM CDT Gender Identity Female 08/01/2024 2:32 PM CDT Sexual Orientation Not on file Occupation Industry [...] Care Team (Late st Contact Info) Description 02/13/2025 10:20 AM DOG GROOMER Office Visit [facility] Family & Internal Medicine - [address] [address] Iker Haynes DO [address] [place] [address] documented as of this encounter Visit Diagnoses Not on filedocumented in this encounter Additional Health Concerns Assessment Noted Time PHQ-9 Depression Total Score: 0 04/11/19 20 1:04 PM DOG GROOMER documented as of this encounter Care Teams Outsole Compressor Relationship Specialty Start Date End Date Iker Haynes DO [address] [place] [address] PCP - General FAMILY PRACTICE 03/10/19 documented as of this encounter
--- OUTSIDE RECORDS SUMMARY | 2024-12-08 15:35 | XMS_ITS | Clinical Summary ---
Author Organization [facility] Address [address] [place] [address] Care Team Providers Care Screen Making Supervisor Name Role Phone Iker Haynes DO Primary Care Provider + Allergies Active Allergy Reactions Criticality Noted Date Comments Aspirin Anaphylaxis High 07/31/2022 Sulfa (Sulfonamide Antibiotics) Hives High 09/2022 Medications levothyroxine 112 mcg tablet TAKE 1 TABLET BY MOUTH EVERY MORNING 90 Tablet 1 02/18/2023 11:21 AM STEREO EQUIPMENT REPAIRER 10/18/19 Active montelukast (SINGULAIR) 10 mg tablet [...] hours. 90 mL 1 02/18/2023 11:21 AM STEREO EQUIPMENT REPAIRER 02/19/20 23 Active methocarbamoL (ROBAXIN) 500 mg tablet Take 1 Tablet (500 mg) by mouth 3 times daily as needed. 90 Tablet 02/18/2023 11:21 AM STEREO EQUIPMENT REPAIRER 02/19/20 23 Active alendronate (FOSAMAX) 70 mg [...] Encounters Date Type Department Care Team Description 11/08/2024 External Device Data STL ABSTRACTION Provider, Abstract 09/27/2024 External Device Data STL ABSTRACTION Provider, Abstract 09/07/2024 External Device Data STL ABSTRACTION Provider, Abstract [...] Comments Blood Pressure 111/73 04/25/2024 2:39 PM STEREO EQUIPMENT REPAIRER Pulse 87 04/25/2024 2:39 PM STEREO EQUIPMENT REPAIRER Temperature 36.4 C (97.5 F) 04/25/2024 2:39 PM STEREO EQUIPMENT REPAIRER Respiratory Rate 15 04/25/2024 2:39 PM STEREO EQUIPMENT REPAIRER Oxygen Saturation 96% 04/25/2024 2:39 PM STEREO EQUIPMENT REPAIRER Inhaled Oxygen Concentration - - Weight 111.5 kg (245 lb 12.8 oz) 04/25/2024 2:39 PM STEREO EQUIPMENT REPAIRER Height 165.1 cm (5' 5) 08/13/2023 2:31 PM CDT Body Mass Index 40.9 08/13/2023 2:31 PM CDT Plan of Treatment Health Maintenance [...] years 1-dose series) 2019 INFLUENZA VACCINE (#1) 2024 , 01/25/2019, 10/28/2018, Additional history exists COVID-19 Vaccine (2 - 2024-2 6 season) 2024 06/08/2021 PNEUMOCOCCAL VACCINE 50+ YEA RS (3 of 3 - PCV20 or PCV21) 01/17/2025 01/18/2020, 12/31/2014 OSTEOPOROSIS SCREENING 11/23/2027 11/22/2022, 2020 ZOSTER VACCINE Completed 05/25/2020, 01/20/2020 Insurance [employer] CHOICE POS II Care Teams Screen Making Supervisor Relationship Specialty Start Date End Date Iker Haynes DO [address] [place] [phone] PCP - General Family Practice 08/10/23
--- OUTSIDE RECORDS SUMMARY | 2024-12-08 15:35 | XMS_ITS | Clinical Summary ---
Author Organization [facility] Address [address] [place] [address] Care Team Providers Care Principal Architectural Firm Name Role Phone Iker Haynes Primary Care Provide r Allergies Active Allergy [...] (0.3 mg total) as needed Active omega 5-fzk-cfo-fish oil 1,000 mg (120 mg-180 mg) capsule [...] on file Legal Sex Female 6:57 AM CORPORATE RECRUITER Gender Identity Female 03/16/2019 6:40 AM CORPORATE RECRUITER Sexual Orientation Not on file Obstetrics History Last Filed Vital Signs Vital Sign Reading Time Taken Comments Blood Pressure 110/70 12/22/2022 3:45 PM CDT Pulse 83 12/22/2022 3:45 PM CDT Temperature 36.8 C (98.2 F) 01/05/2015 4:06 PM CORPORATE RECRUITER Respiratory Rate - - Oxygen Saturation 97% 12/22/2022 3:45 PM CDT Inhaled Oxygen Concentration - - Weight 115.6 kg (254 lb 12.8 oz) 12/22/2022 3:45 PM CDT Height 161.3 cm (5' 3.5) 12/11/2021 4:20 PM CDT Body Mass Index 44.43 12/11/2021 4:20 PM CDT Plan of Treatment Health Maintenance Due Date Last Done Comments Albumin Creatinine Ratio, Urine 1959 Breast Cancer Screening-Mammogram 1959 Cervical Cancer Screening 1959 Colon Cancer Screening-Colonoscopy 1959 Depression Screening 1959 Fall Risk Assessment 1959 Osteoporosis Screening-Bone Density Scan 1959 Dilated Eye Exam 1959 Foot Exam 1959 DTaP/Tdap/Td Vaccine (1 - Tdap) 1970 Hepatitis B Screening 1977 Hemoglobin A1C 02/13/2014 08/14/2013 Well Visit 65+ 2024 Lipid Panel 05/01/2024 05/02/2023, 10/26, 06/07/2022, Additional history exists eGFR 05/01/2024 05/02/2023, 1203/2022, 11/22/2022, Additional history exists Influenza Vaccine (#1) 2024 , 11/17/2020, 11/12/2019, Additional history exists Pneumococcal vaccine 65+ (3 of 3 - PCV20 or PCV21) 01/17/2025 01/18/2020, 12/31/2014, 02/23/2014, Additional history exists Hepatitis C Screening Completed 03/05/2019, 019 Zoster Vaccine Completed 05/25/2020, 01/20/2020 Procedures Procedure Name Priority Date/Time Associated Diagnosis Comments COMPREHENSIVE METABOLIC PANEL Routine 05/02/2023 10:14 AM CORPORATE RECRUITER Primary hypertension LIPID PANEL Routine 05/02/2023 10:14 AM CORPORATE RECRUITER Mixed hyperlipidemia HEPATITIS PANEL, ACUTE Routine 03/05/2019 10:11 AM CORPORATE RECRUITER Elevated transaminase level HEMOGLOBIN A1C Routine 08/14/2013 5:28 AM CDT from Last 3 Months or Most Recently Relevant to Health Maintenance Results * (ABNORMAL) Lipid panel (05/02/2023 10:14 AM CORPORATE RECRUITER) Cholesterol 149 100 - 199 mg/dL [facility] - 01 Triglycerides 220(H) 0 - 149 mg/dL [facility] - 01 HDL Cholesterol 32(L) >39 mg/dL [facility] - 01 VLDL 37 5 - 40 mg/dL [facility] - 01 LDL, calculated 80 0 - 99 mg/dL [facility] - 01 Blood 05/02/2023 10:1 4 AM CORPORATE RECRUITER 05/02/2023 Narrative [facility] - 05/03/2023 8:07 AM CDT Performed at: 01 - [facility] [id number] Chain Carrier: Graham Goncalves PhD, Phone: [phone] us Tre Richard MD LAB BLOOD ORDERABLES Final R esult [facility] - 01 * (ABNORMAL) Comprehensive metabolic panel (05/02/2023 10:14 AM CORPORATE RECRUITER) Glucose 105(H) 70 - 99 mg/dL [facility] - 01 BUN 17 8 - 27 mg/dL [facility] - 01 Creatinine, Serum 1.08(H) 0.57 - 1.00 mg/dL [facility] - 01 eGFR 57(L) >59 mL/min/1.7 3 [facility] - 01 BUN/creat ratio 16 12 - 28 [facility] - 01 Sodium 141 134 - 144 mmol/L [facility] - 01 Potassium, sr 4.6 3.5 - 5.2 mmol/L [facility] - 01 Chloride 99 96 - 106 mmol/L [facility] - 01 CO2 26 20 - 29 mmol/L [facility] - 01 Calcium 10.1 8.7 - 10.3 mg/dL [facility] - 01 Protein, sr 7.3 6.0 - 8.5 g/dL [facility] - 01 Albumin 4.6 3.9 - 4.9 g/dL [facility] - 01 Globulin, Total 2.7 1.5 - 4.5 g/dL [facility] - 01 A/G Ratio 1.7 1.2 - 2.2 [facility] - 01 Bilirubin, Total 0.4 0.0 - 1.2 mg/dL [facility] - 01 Alk phos 62 44 - 121 IU/L [facility] - 01 AST 45(H) 0 - 40 IU/L [facility] - 01 ALT 63(H) 0 - 32 IU/L [facility] - 01 Blood 05/02/2023 10:1 4 AM CORPORATE RECRUITER 05/02/2023 Narrative [facility] - 05/03/2023 8:07 AM CDT Performed at: [facility] [id number] Chain Carrier: Graham Goncalves PhD, Phone: [phone] us Tre Richard MD LAB BLOOD ORDERABLES Final R esult [facility] - 01 * Hepatitis panel, acute (03/05/2019 10:11 AM CORPORATE RECRUITER) Pathologist [facility] Hep A IgM Negative Negative [facility] - [...] with a HCV Nucleic Acid Amplification test (808094). Blood specimen (specimen) 03/05/2019 10:11 AM CORPORATE RECRUITER 03/05/2019 Narrative [facility] - 03/06/2019 1:06 PM CORPORATE RECRUITER Performed at: [facility] [id number] Chain Carrier: Graham Goncalves PhD, Phone: [phone] us Tre Richard MD LAB MICROBIOLOGY - GENERAL O RDERABLES Final Result Performing Organization Address [facility] Co de Phone Number [facility] * Hemoglobin A1c (08/14/2013 5:28 AM CDT) [facility] Hemoglobin A1c % 5.5 4.8 - 5.9 % 08/14/2013 6:09 AM CDT [facility] HISTORICAL RESULTS Comment: As of 2009 Method: LOGAN Sandhya 6000 using turbidometric inhibition immunoassay procedure. Results obtained are comparable to results obtained using previous methodology (HPLC). [place] [employer] recommends that the goal of therapy should be an A1C hemoglobin of <7%. Reevaluate the treatment regimen in patients with an A1C >8%. 08/14/2013 5:28 AM CDT 08/14/2013 5:47 AM CDT us Marco Antonio Bond MD LAB BLOOD ORDERABLES Final R esult [facility] HISTORICAL RESULTS from Last 3 Months or Most Recently Relevant to Health Maintenance Insurance [facility] CHOICE PLUS [facility] CHOICE PLUS Advance Directives For more information, please contact: [phone] Documents on File Type Date Recorded Patient Electroencephalogram Technologist Expl anation ADVANCE DIRECTIVE 02/03/2011 12:00 AM [facility] WILL ADVANCE DIRECTIVE 02/03/2011 12:00 AM [facility] Care Teams Principal Architectural Firm Relationship Specialty Start Date End Date Iker Haynes DO PCP - General Family Medicine 03/23/19
--- OUTSIDE RECORDS SUMMARY | 2024-12-08 15:35 | XMS_ITS | Encounter Summary ---
Author Organization [facility] Address [address] [place] [address] Care Team Providers Care Cyber Security Instructor Name Role Phone Ellie Dominguez DO Primary Care Provider + Reason for Visit * Reason Onset Date Comments Referral 12/07/2024 Encounter Details Date Type Department Care Team (Late st Contact Info) Description 12/07/2024 Telephone [facility] Family & Internal Medicine [id number] [place] [address] Ellie Dominguez DO [facility] [place] [address] Referral Social History Tobacco Use Types Packs/Day Years [...] Date Recorded Patient Health Questionnaire-2 Score 0 08/01/2024 Comments No Sex and Gender Information Value Date Recorded Sex Assigned at Female 08/01/2024 2:32 PM CDT Legal Sex Female 7:15 PM CDT Gender Identity Female 08/01/2024 2:32 PM CDT Sexual Orientation Not on file 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 * Melanie Hirsch - 12/07/2024 2:39 PM CDT The specialist office called for a referral to the following physician: Is this a new consult: no - continuation of care Dr's name: [facility] Specialty: Ambulatory diabetes education and nutrition Appointment: Next week Last office visit at this office: Last visit with ELLIE DOMINGUEZ in FAMILY PRACTICE was on: 11/07/2024 in [facility] Future appointment scheduled: Future Appointments Date Time Provider Department Center 02/13/2025 10:20 AM Ellie Dominguez DO [facility] Nicolle with [facility] said that she is needing a new referral sent over because the only advertising photographer they have is leaving that practice and in order for the patient to be treated the referral needs to read Ambulatory Diabetes Education and Nutrition. Please fax a new referral to Nicolle at [phone]. documented in this encounter Plan of Treatment Upcoming Encounters Date Type Department Care Team (Late st Contact Info) Description 02/13/2025 10:20 AM PALLIATIVE CARE PHYSICIAN Office Visit [facility] Family & Internal Medicine - [place] [address] [place] [address] Ellie Dominguez DO [address] [place] [address] documented as of this encounter Visit Diagnoses Not on filedocumented in this encounter Additional Health Concerns Assessment Noted Time PHQ-9 Depression Total Score: 0 04/11/19 20 1:04 PM PALLIATIVE CARE PHYSICIAN documented as of this encounter Care Teams Cyber Security Instructor Relationship Specialty Start Date End Date Ellie Dominguez DO [address] [place] [address] PCP - General FAMILY PRACTICE 03/10/19 documented as of this encounter
--- OUTSIDE RECORDS SUMMARY | 2024-12-08 15:35 | XMS_ITS | Encounter Summary ---
Author Organization [facility] Address [address] [place] [address] Care Team Providers Care Food And Beverage Director Name Role Phone Iker Haynes DO Primary Care Provider + Encounter Details Date Type Department Care Team (Late st Contact Info) Description 03/17/2023 [employer] Message Enc [facility] Medical [facility] Family & Internal Medicine [facility] [address] [place] [address] Iker Haynes DO [address] [place] [address] Stopped Metformin Social History Tobacco [...] with dietarychanges. Can reassess at next OV. SCHOOL COACH documented in this encounter Plan of Treatment Upcoming Encounters Date Type Department Care Team (Late st Contact Info) Description 02/13/2025 10:20 AM HIGH SCHOOL COACH Office Visit [facility] Medical [facility] Family & Internal Medicine [facility] [address] [place] [address] Iker Haynes DO [facility] [place] [address] documented as of this encounter Visit Diagnoses Not on filedocumented in this encounter Additional Health Concerns Assessment Noted Time PHQ-9 Depression Total Score: 0 04/11/19 20 1:04 PM HIGH SCHOOL COACH documented as of this encounter Care Teams Food And Beverage Director Relationship Specialty Start Date End Date Iker Haynes DO [address] [place] [address] PCP - General FAMILY PRACTICE 03/10/19 documented as of this encounter
--- OUTSIDE RECORDS SUMMARY | 2024-12-08 15:35 | XMS_ITS | Encounter Summary ---
Author Organization [facility] Facility Care Team Providers Care Medicine Tech Name Role Phone Korey Dorman MD Primary Care Provider [phone] Iker Haynes DO Primary Care Provide r Encounter Details Date Type Department Care Team (Latest Contact Info) Description 05/18/2017 Orders Only [facility] CLINCONV ProviderMague MD [address] [place] [address] Social History Tobacco Use Types Packs/Day Years Used Date Smoking Tobacco: Never Assessed Comments Unknown Sex and Gender Information Value Date Recorded Sex Assigned at Not on file Legal Sex Female 6:57 AM FULFILLMENT REPRESENTATIVE Gender Identity Female 03/16/2019 6:40 AM FULFILLMENT REPRESENTATIVE Sexual Orientation Not on file documented as [...] on filedocumented in this encounter Care Teams Medicine Tech Relationship Specialty Start Date End Date Korey Dorman MD [address] [place] [address] PCP - General Family Medicine 06/16/18 03/22/19 Iker Haynes DO [address] [place] [address] PCP - General Family Medicine 03/23/19 documented as of this encounter
--- OUTSIDE RECORDS SUMMARY | 2024-12-08 15:35 | XMS_ITS | Encounter Summary ---
Author Organization [facility] Address [address] [place] [address] Care Team Providers Care Bereavement Coordinator Name Role Phone Iker Haynes DO Primary Care Provider + Encounter Details Date Type Department Care Team (Late st Contact Info) Description 11/07/2024 Results Follow-Up [facility] Family & Internal Medicine [facility] [address] [place] [address] Iker Haynes DO [facility] [place] [address] HEMOGLOBIN, GLYCOSYLATED, THYROID STIM HORMONE TSH, THYROXINE, FREE (FT4), ALBUMIN URINE RANDOM W/CREATININE Social History Tobacco Use Types Packs/Day Years [...] st Contact Info) Description 02/13/2025 10:20 AM BULB GRADER Office Visit [facility] Family & Internal Medicine - [place] [address] [place] [address] Iker Haynes DO [address] [place] [address] documented as of this encounter Visit Diagnoses Not on filedocumented in this encounter Additional Health Concerns Assessment Noted Time PHQ-9 Depression Total Score: 0 04/11/19 20 1:04 PM BULB GRADER documented as of this encounter Care Teams Bereavement Coordinator Relationship Specialty Start Date End Date Iekr Haynes DO [address] [place] [address] PCP - General FAMILY PRACTICE 03/10/19 documented as of this encounter
--- OUTSIDE RECORDS SUMMARY | 2024-12-08 15:35 | XMS_ITS | Encounter Summary ---
Author Organization [facility] Facility Care Team Providers Care Occupational Therapist Assistant Name Role Phone Korey Dorman MD Primary Care Provider [phone] Iker Haynes DO Primary Care Provide r Encounter Details Date Type Department Care Team (Latest Contact Info) Description 07/12/2015 Orders Only [facility] CLINCONV Provider, MD Mague [address] [place] [address] Social History Tobacco Use Types Packs/Day Years Used Date Smoking Tobacco: Never Assessed Comments Unknown Sex and Gender Information Value Date Recorded Sex Assigned at Not on file Legal Sex Female 6:57 AM CAKE WINDER Gender Identity Female 03/16/2019 6:40 AM CAKE WINDER Sexual Orientation Not on file documented as [...] on filedocumented in this encounter Care Teams Occupational Therapist Assistant Relationship Specialty Start Date End Date Korey Dorman MD [address] [place] [address] PCP - General Family Medicine 06/16/18 03/22/19 Iker Haynes DO [address] [place] [address] PCP - General Family Medicine 03/23/19 documented as of this encounter
--- OUTSIDE RECORDS SUMMARY | 2024-12-08 15:35 | XMS_ITS | Encounter Summary ---
Author Organization [facility] Facility Care Team Providers Care Linux Unix System Administrator Name Role Phone Korey Dorman MD Primary Care Provider [phone] Iker Haynes DO Primary Care Provide r Encounter Details Date Type Department Care Team (Latest Contact Info) Description 09/06/2015 Orders Only [facility] CLINCONV ProviderMague MD [address] [place] [address] Social History Tobacco Use Types Packs/Day Years Used Date Smoking Tobacco: Never Assessed Comments Unknown Sex and Gender Information Value Date Recorded Sex Assigned at Not on file Legal Sex Female 6:57 AM BUSINESS OPERATIONS DIRECTOR Gender Identity Female 03/16/2019 6:40 AM BUSINESS OPERATIONS DIRECTOR Sexual Orientation Not on file documented as [...] on filedocumented in this encounter Care Teams Linux Unix System Administrator Relationship Specialty Start Date End Date Korey Dorman MD [address] [place] [address] PCP - General Family Medicine 06/16/18 03/22/19 Iker Haynes DO [address] [place] [address] PCP - General Family Medicine 03/23/19 documented as of this encounter
--- OUTSIDE RECORDS SUMMARY | 2024-12-08 15:35 | XMS_ITS | Encounter Summary ---
Author Organization [facility] Address [address] [place] [address] Care Team Providers Care Oracle Fusion Middleware Architect Name Role Phone Iker Haynes DO Primary Care Provider + Encounter Details Date Type Department Care Team (Late Contact Info) Description 08/20/2022 [employer] Message Enc [facility] Medical Group [facility] [address] [place] [phone] [facility], [facility] Provider Air Quality Message Social History Tobacco [...] Department Care Team (Late Contact Info) Description 02/13/2025 10:20 AM CHERRY CUTTER Office Visit [facility] Medical Group Family & Internal Medicine - [address] [address] Iker Haynes DO [address] [place] [address] documented as of this encounter Visit Diagnoses Not on filedocumented in this encounter Additional Health Concerns Assessment Noted Time PHQ-9 Depression Total Score: 0 04/11/19 20 1:04 PM CHERRY CUTTER documented as of this encounter Care Teams Oracle Fusion Middleware Architect Relationship Specialty Start Date End Date Iker Haynes DO [address] [place] [address] PCP - General FAMILY PRACTICE 03/10/19 documented as of this encounter
--- OUTSIDE RECORDS SUMMARY | 2024-12-08 15:35 | XMS_ITS | Encounter Summary ---
Author Organization [facility] Address [address] [place] [address] Care Team Providers Care Bullet Lubricant Mixer Name Role Phone Iker Haynes DO Primary Care Provider + Encounter Details Date Type Department Care Team (Late st Contact Info) Description 08/15/2024 allyDVM Message Enc [facility] Medical Group Family & Internal Medicine [facility] [address] [place] [address] Iker Haynes DO [address] [place] [address] Bolt Maker referral Social History Tobacco Use Types Packs/Day Years [...] st Contact Info) Description 02/13/2025 10:20 AM ONCOLOGY CONSULTANT Office Visit [facility] Family & Internal Medicine - [place] [id number] [place] [address] Iker Haynes DO [address] [place] [address] documented as of this encounter Visit Diagnoses Not on filedocumented in this encounter Additional Health Concerns Assessment Noted Time PHQ-9 Depression Total Score: 0 04/11/19 20 1:04 PM ONCOLOGY CONSULTANT documented as of this encounter Care Teams Bullet Lubricant Mixer Relationship Specialty Start Date End Date Iker Haynes DO [address] [place] [address] PCP - General FAMILY PRACTICE 03/10/19 documented as of this encounter
--- OUTSIDE RECORDS SUMMARY | 2024-12-08 15:35 | XMS_ITS | Clinical Summary ---
Author Organization [facility] Address [address] [place] [address] Care Team Providers Care Pillar Man Name Role Phone Iker Haynes DO Primary Care Provider + Allergies Active Allergy Reactions Criticality Noted Date Comments Aspirin Anaphylaxis,Hives,Sw lashon ng High 03/03/2017 hives Fenofibrate Rash Medium 08/02/2018 rash Pravastatin Myalgias Medium 08/02/2018 myalgias Simvastatin Myalgias Medium 08/02/2018 myalgias Sulfa Antibiotics Hives,Unknown High 08/02/2018 Sulfamethoxazole-Trimethopr im Hives 08/01/2024 Medications esomeprazole 40 MG capsule 1 capsule [...] sprays by Each Nostril route daily. Active fish oil (OMEGA-3 FATTY ACID) [...] 108 (90 Base) MCG/ACT inhaler Acti ve fluticasone furoate-vilanter ol (BREO ELLIPTA) 100-25 MCG/ACT inhaler Inhale 1 puff into the lungs daily. Active methocarbamol (ROBAXIN) 500 MG tabletIndication s:Spinal stenosis of lumbar region at multiple levels TAKE 1 TABLET 3 TIMES A DAYAS NEEDED 90 tablet 4 Active traMADol ER 200 MG TABLET SR 24 HR 24 hr tablet as needed. Act ayala Multiple Vitamin (DAILY VITES) Tab Take 1 tablet by mouth daily. Active vitamin C (ASCORBIC ACID) 500 MG tablet daily. Active AZELASTINE 137 MCG/SPRAY nasal spray SPRAYS 2 SPRAYS INTO EACH NOSTRIL TWICE DAILY for 25 Active calcium carbonate (SUPER CALCIUM) 1500 (600 Ca) MG tablet every 12 (twelve) hours. Active Cyanocobalamin (VITAMIN B12) 1000 MCG Tab CR daily. Acti ve dilTIAZem CD (CARDIZEM CD) 240 MG 24 hr capsule Take 1 capsule (240 mg total) by mouth daily. 5 Active folic acid (FOLVITE) 1 MG tablet Take 2 tablets (2 mg total) by mouth daily. Active metFORMIN ER (GLUCOPHAGE-XR) 500 MG 24 hr tabletIndication s:Type 2 diabetes mellitus with other circulatory complication, without long-term current use of insulin (CMS/HCC HHS/HCC) TAKE 1 TABLET BY MOUTH EVERY DAY WITH BREAKFAST 90 tablet 5 Active levothyroxine (SYNTHROID) 137 MCG tabletIndication s:Hypothyroidism , unspecified type TAKE 1 TABLET BY MOUTH EVERY MORNING. 90 tablet 5 Active rosuvastatin (CRESTOR) 5 MG tablet Take 1 tablet (5 mg total) by mouth daily. Active Active Problems Problem Noted Date Diagnosed Date Elevated liver enzymes 11/07/2024 Hyperlipidemia associated with type 2 diabetes m ellitus 11/07/2024 Allergic rhinitis 08/01/2024 Nonexudative age-related macular degeneration Atypical ductal hyperplasia of left breast 07/02 Macular degeneration 08/04/2022 Pure hypercholesterolemia 06/04/2021 Osteoporosis 08/31/2020 Elevated transaminase level 05/21/2020 BMI 40.0-44.9, adult 01/22/2020 Allergies 01/18/2020 Anterolisthesis 01/18/2020 DDD (degenerative disc disease), lumbar 01/18/20 Spinal stenosis of lumbar region at multiple lev els 01/18/2020 Spinal stenosis 09/27/2019 Hypothyroidism, unspecified type 04/11/2019 Uncomplicated asthma, unspec ified asthma severity, unspecified whether persistent 04/11/2019 Afib 08/11/2015 Overview (04/11/2019): Secondary to central line placement status post cardioversion Dyslipidemia 08/11/2015 Overview (04/11/2019): LD and triglycerides are at goal, HDL is at goal on Crestor. Hypertension associated with type 2 diabetes sharon litus 08/11/2015 Overview (04/11/2019): Controlled Obstructive sleep apnea 07/24/2015 Overview (04/11/2019): History of on CPAP, managed by Dr. Inman Other diseases of vocal cords 05/29/2015 Resolved Problems Problem Noted Date Diagnosed Date Resolved Date PSVT (paroxysmal supraventri cular tachycardia) 09/27/2019 12/31/2021 Inappropriate sinus tachycardia 03/23/2019 12/31/2021 DVT (deep venous thrombosis) 08/11/2015 12/31/2021 Overview (04/11/2019): History of and pulmonary emboli in the past, on plavix for this as per her primary md last dvt was in 2004 Edema 08/11/2015 06/05/2021 Overview (04/11/2019): Likely secondary to Cardizem resolved on spironolactone. Encounters Date Type Department Care Team Description 12/07/2024 Telephone [facility] Family Internal [address] [phone] Iker Haynes, Referral 11/07/2024 9:40 AM CDT Office Visit [facility] Internal [address] [phone] Iker Haynes DO Diabetes (The patient presents for 3 month follow up. The patient states she is feeling better since starting metformin) 11/07/2024 Results Follow-Up [facility] Internal [address] [phone] Iker Haynes DO HEMOGLOBIN, GLYCOSYLATED, THYROID STIM HORMONE TSH, THYROXINE, FREE (FT4), ALBUMIN URINE RANDOM W/CREATININE 11/07/2024 Travel 10/25/2024 Scan [employer] INFO SRVCS Scanned, [facility] from Last 3 Months Immunizations Immunization Administration Dates Next Due Abrysvo Respiratory Syncytia l Virus (RSV) 0.5 mL, PF 11/22/2022 Afluria 36 MONTHS+ (Prefille d Syringe IIV4) 10/28/2018 Fluarix 11/20/2014 Flucelvax 2 YRS+ (Multi-Dose Vial) 01/25/2019 Fluzone High Dose (IIV, triv alent, 0.5mL) 10/29/2024 Fluzone Quad 3 Yrs+ (5.0 mL Multi Dose Vial) 11/12/2019 Hib 06/07/2015 Hib (Prohibit) 06/07/2015 Influenza (Generic) 11/21/2023, 2,11/17/2020,2018,10/31/2017,10/27/2016,11/27/2015,0 11/20/2014,10/30/2014,10/24/2013 Influenza Adult (Generic) 11/22/2022,,11/17/2020,2019,01/25/2019,10/30/2017,10/31/2016,0 10/27/2016,11/30/2015,11/27/2015, 015,11/05/2013,12/11/2012 MODERNA COVID-19 (CABLE INSPECTOR MARGUERITE JAMILAH), MRNA, LNP-S, PF, 50 MCG/ 0.25 ML DOSE 06/08/2021 Pneumococcal (Pneumovax 23) 01/18/2020, 4 Pneumococcal (Prevnar 13) 12/31/2014 Shingrix 05/25/2020,01/20/2020 Family History Medical History Relation Comments Arthritis Father Asthma Father Cancer Father Prostate Heart Disease Father Hyperlipidemia Father Hypertension Father Stroke Maternal Grandmother Alcohol Abuse Mother Sober since 1981 Arthritis Mother Cancer Mother Heart Mother Heart Attack Mother Pacemaker Heart Disease Mother Hyperlipidemia Mother Hypertension Mother Osteoporosis Mother Vision loss Mother Macular Degenera tion Arthritis Sister 1 Asthma Sister 1 Hyperlipidemia Sister 1 Hypertension Sister 1 Alcohol Abuse Sister 2 Sober since 1981 Arthritis Sister 2 Arthritis Sister 3 Arthritis Sister 4 Hypertension Sister 4 Arthritis Sister 5 Hypertension Sister 5 Relation Status Comments Father Maternal Grandmother Alive Mother Alive Sister 1 Sister 2 Sister 3 Sister 4 Alive Sister 5 Alive Social History Tobacco Use Types Packs/Day Years Used Date Smoking Tobacco: Never Passive Smoke Exposure: Never Smokeless Tobacco: Never Tobacco Cessation:Counseling Given: Yes Alcohol Use Standard Drinks/Week Comments Never 0 [...] Sign Reading Time Taken Comments Blood Pressure 114/84 11/07/2024 9:48 AM CDT Pulse 84 11/07/2024 9:48 AM CDT Temperature 36.7 C (98.1 F) 11/07/2024 9:48 AM CDT Respiratory Rate 16 11/07/2024 9:48 AM CDT Oxygen Saturation 98% 11/07/2024 9:48 AM CDT Inhaled Oxygen Concentration - - Weight 113.8 kg (250 lb 12.8 oz) 11/07/2024 9:48 AM CDT Height 165.1 cm (5' 5) 11/07/2024 9:48 AM CDT Body Mass Index 41.74 11/07/2024 9:48 AM CDT Plan of Treatment Upcoming Encounters Date Type Department Care Team (Late st Contact Info) Description 02/13/2025 10:20 AM 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 Office Visit [facility] Family & Internal Medicine [address] [phone] Iker Haynes DO [address] [place] [id number] Health Maintenance Due Date Last Done Comments Dexa Scan (General) 11/22/2024 11/22/2022, Diabetes: Retinopathy Eye Exam 12/07/2024 Postponed from 1977 (Future Appointment) Pneumococcal Vaccine: 50+ Years (3 of 3 - PCV20 or PCV21) 01/17/2025 01/18/2020, 12/31/2014, 02/13/2014 DTaP, Tdap and Td Vaccines (1 - Tdap) 02/23/2025 Postponed from 1978 (Per Provider Recommendation) Hemoglobin A1C 05/07/2025 11/07/2024, 05/2 05/2024, 10/01/2023, Additional history exists Mammogram Screening 06/07/2025 06/07/2024, 09/22/2023, 09/22/2023, Additional history exists Lipid Panel 07/16/2025 07/16/2024 Colorectal Cancer Screening Colonoscopy (10 Years) 08/01/2025 12/20/2008 Postponed from 12/04/2023 (Patient Refused) Kidney Health Evaluation 11/26/2025 11/26/2024 Hepatitis C 06/05/2056 Postponed from 1977 (Per Provider Recommendation) Zoster Vaccines Completed 05/25/2020, 01/20/2020 RSV Immunization or 60+ Years Completed 11/22/2022 PHQ-2 (Physician [place]) Completed 08/01/2024 COVID-19 Vaccine Completed 10/29/2024, 04/2024, 11/21/2023, Additional history exists Influenza Adult Completed 10/29/2024, 10/25, 11/22/2022, Additional history exists Hepatitis A Vaccines Aged Out No long er eligible based on patient's age to complete this topic Meningococcal B Vaccine Aged Out No l onger eligible based on patient's age to complete this topic Meningococcal Vaccine Aged Out No nithin joanne eligible based on patient's age to complete this topic RSV Immunizations Under 20 Months Aged Out No longer eligible based on patient's age to complete this topic Procedures Procedure Name Priority Date/Time Associated Diagnosis Comments ALBUMIN URINE RANDOM W/CREATININE Routine 11/26/2024 9:56 AM CDT Type 2 diabetes mellitus with other circulatory complication, without long-term current use of insulin ([facility]) THYROXINE, FREE (FT4) Routine 11/26/2024 9:55 AM CDT Hypothyroidism, unspecified type THYROID STIM HORMONE TSH Routine 11/26/2024 9:55 AM CDT Hypothyroidism, unspecified type COLLECT.CAPILLARY (FNGR,HEEL,EAR) Routine 11/07/2024 9:38 AM CDT Type 2 diabetes mellitus with other circulatory complication, without long-term current use of insulin ([facility]) HEMOGLOBIN, GLYCOSYLATED Routine 11/07/2024 Type 2 diabetes mellitus with other circulatory complication, without long-term current use of insulin ([facility]) LIPID PANEL Routine 07/16/2024 9:54 AM CDT Hypothyroidism, unspecified type Prediabetes Primary hypertension Dyslipidemia MAMMOGRAM GENERIC (SCAN ORDER) 06/07/2024 BONE DENSITY GENERIC (SCAN ORDER) 11/22/2022 COLONOSCOPY GENERIC (SCAN ORDER) Routine 12/20/2008 from Last 3 Months or Most Recently Relevant to Health Maintenance Results * ALBUMIN URINE RANDOM W/CREATININE (11/26/2024 9:56 AM CDT) CREATININE (URINE) 254.8 Not Estab. mg/dL [facility] ALBUMIN (U) 21.4 Not Estab. ug/mL [facility] ALBUMIN/CREAT RATIO 8 0 - 29 mg/g creat [facility] Comment: Normal: 0 - 29 Moderately increased: 30 - 300 Severely increased: >300 URINE SPECIMEN / Unknown 11/26/2024 9:56 AM CDT 11/26/2024 Narrative [facility] - 11/27/2024 7:08 AM CDT Performed at: [address] [place] [id number] Mis Specialist: Graham Goncalves PhD, Phone: [phone] us Iker Haynes DO URINE ORDERABLES Final R esult Performing Organization Address [facility] de Phone Number [facility] [address] [place] [address] [facility] * THYROXINE, FREE (FT4) (11/26/2024 9:55 AM CDT) Pathologist [facility] FREE T4 1.12 0.82 - 1.77 ng/dL [facility] 11/26/2024 9:55 AM CDT 11/26/2024 Narrative [facility] - 11/27/2024 8:09 AM CDT Performed at: [address] [place] [id number] Mis Specialist: Graham Goncalves PhD, Phone: [phone] Iker Haynes DO LABORATORY Final Re sult Performing Organization Address [facility] de Phone Number [facility] [address] [place] [address] [facility] * (ABNORMAL) THYROID STIM HORMONE TSH (11/26/2024 9:55 AM CDT) TSH 6.260(H) 0.450 - 4.50 uIU/mL [facility] 11/26/2024 9:55 AM CDT 11/26/2024 Narrative [facility] - 11/27/2024 8:09 AM CDT Performed at: [facility] [id number] Mis Specialist: Graham Goncalves PhD, Phone: [phone] Iker Haynes DO LABORATORY Final Re sult Performing Organization Address City/[facility]/ZIP Co de Phone Number [facility] [address] [place] [address] [facility] * HEMOGLOBIN, GLYCOSYLATED (11/07/2024) Pathologist [facility] HGB A1C 6.4 % [facility] 11/07/2024 us Iker Haynes DO LABORATORY Final Re sult Performing Organization Address [facility]/ZIP Co de Phone Number [facility] [address] [place] [address], * (ABNORMAL) LIPID PANEL (07/16/2024 9:54 AM CDT) CHOLESTEROL 161 100 - 199 mg/dL [facility] TRIGLYCERIDES 169(H) 0 - 149 mg/dL [facility] HDL 36(L) >39 mg/dL [facility] VLDL CALCULATION 30 5 - 40 mg/dL [facility] LDL (CALCULATED) 95 0 - 99 mg/dL [facility] 07/16/2024 9:54 AM CDT 07/16/2024 Narrative [facility] - 07/17/2024 9:09 AM CDT Performed at: [facility] [id number] Mis Specialist: Graham Goncalves PhD, Phone: [phone] us Iker Haynes DO LABORATORY Final Re sult [facility] [address] [place] [address] [facility] * MAMMOGRAM GENERIC (SCAN ORDER) (06/07/2024) Anatomical Region Laterality Modality Other 06/07/2024 us [facility] Scanned SCANNING Final Resu lt * BONE DENSITY GENERIC (11/22/2022) Anatomical Region Laterality Modality Other 11/22/2022 us [facility] Scanned SCANNING Final Resu lt * COLONOSCOPY (12/20/2008) us Documents Scanned SCANNING Final Result Performing Organization Address City/[facility] Co de Phone Number [facility] from Last 3 Months or Most Recently Relevant to Health Maintenance Insurance AETNA AETNA Care Teams Pillar Man Relationship Specialty Start Date End Date Iker Haynes DO [address] [place] [phone] PCP - General FAMILY PRACTICE 03/10/19
--- OUTSIDE RECORDS SUMMARY | 2024-12-08 15:35 | XMS_ITS | Encounter Summary ---
Author Organization [facility] Address [address] [place] [phone] Care Team Providers Care Cuprous Chloride Helper Name Role Phone Iker Haynes DO Primary Care Provider + Encounter Details Date Type Department Care Team (Late st Contact Info) Description 02/25/2022 [place] Message Enc [facility] Family & Internal Medicine [facility] [address] [place] [address] Iker Haynes DO [address] [place] [address] Covid stomach issues Social History [...] if this helps. Likely from the medication. 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 Office Visit [facility] Medical [facility] Family & Internal Medicine - [address] [phone] Iker Haynes DO [facility] [place] [address] documented as of this encounter Visit Diagnoses Not on filedocumented in this encounter Additional Health Concerns Assessment Noted Time PHQ-9 Depression Total Score: 0 04/11/19 1:04 PM LOCKER PLANT ATTENDANT documented as of this encounter Care Teams Cuprous Chloride Helper Relationship Specialty Start Date End Date Iker Haynes DO [address] [place] [phone] PCP - General FAMILY PRACTICE 03/10/19 documented as of this encounter
--- OUTSIDE RECORDS SUMMARY | 2024-12-08 15:36 | XMS_ITS | Patient Health Record ---
Author Organization [email or web address] [facility] ([address]) Address [address] [place] [address] Care Team Providers Care Trimmer Tailer Name Role Phone Iker Haynes Primary Care Provider Dusty Arias Unavailable [phone] Cachorro Wells MD Unavailable Senthil Valenzuela Unavailable [phone] Patrica Conroy Unavailable [phone] Allergies Allergen (clinical drug ingredient) Drug/Non Drug Allergy documented on EMR Reaction Allergy Type Onset Date Status Substance with sulfonamide structure and antibacterial mechanism of action (substance) SULFA (uncoded) hives Allergy Active aspirin Aspirin hives Drug Allergy Active sulfamethoxazole / trimethoprim Bactrim hives Drug Allergy Active Results Component Value Reference Range Notes Spirometry Reviewed date:06/07/2024 02:00:28 PM Interpretation:Normal Performing Lab: Notes/Report: Normal SpiroPreBronchodilator_FVC 2.59 SpiroPostBronchodilator_FEF25_75 0 SpiroPreBronchodilator_FEF25_75 1.18 SpiroPreBronchodilator_FEV1 1.85 SpiroPrecentPredictionPost_FEF25_75 0 SpiroPrecentPredictionPost_FEV1 0 SpiroPrecentPredictionPost_FEV1_OVER_FVC 0 SpiroPrecentPredictionPost_FVC 0 SpiroPrecentPredictionPre_FEF25_75 53.6 SpiroPrecentPredictionPre_FEV1 79.7 SpiroPrecentPredictionPre_FEV1_OVER_FVC 92.5 SpiroPrecentPredictionPre_FVC 86.6 SpiroPredicted_FEF25_75 2.2 SpiroPreBronchodilator_FEV1_OVER_FVC 71.56 SpiroPreBronchodilator_PEF 6.53 SpiroPostBronchodilator_FVC 0 SpiroPostBronchodilator_FEV1 0 SpiroPostBronchodilator_FEV1_OVER_FVC 0 SpiroPostBronchodilator_PEF 0 SpiroPredicted_FVC 2.99 SpiroPredicted_FEV1 2.32 SpiroPredicted_FEV1_OVER_FVC 77.36 SpiroPredicted_PEF 5.61 Reason For Referral No Information Medications Medication SIG (Take, Route, Frequency, Duration) Notes Start Date End Date Status metFORMIN HCl 500 MG 1 tablet with a meal Orally Once a day Active traMADol HCl ER 200 MG 1 tablet Orally Once a day Active Voltaren 1 % as directed Externally Active Folic Acid 1 MG 1 tablet Orally Once a day Active Calcium 600 MG 1 tablet with meals Orally Twice a day Active Plavix 75 MG 1 tab(s) orally once a day Not-Taking Vitamin C 500 MG 1 tablet Orally Once a day Active TRELEGY ELLIPTA 100 mcg-62.5 mcg-25 mcg/inh 1 puff(s) inhaled once a day; Duration: 30 days Not-Taking Multivitamin - 1 tablet Orally Once a day Active traMADol HCl ER 200 MG 1 tablet Orally Once a day Not-Taking Trelegy Ellipta 100 MCG-62.5 MCG-25 MCG/INH 1 PUFF(S) INHALED ONCE A DAY; Duration: 90 DAYS *Please review and pick correct strength-formula tion from [employer] options. If intended option is not shown, discontinue and re-order from Quick Search* Not-Taking SIT (Traditional) variable - see record per schedule subcutaneous per schedule; Duration: 999 days Active Auvi-Q 0.3 MG/0.3ML as directed Injection as needed; Duration: 30 days Active Albuterol Sulfate 108 (90 Base) MCG/ACT 2 puff as needed Inhalation every 4 hrs; Duration: 30 days Active BREO ELLIPTA 100 mcg-25 mcg/inh 1 puff(s) inhaled once a day; Duration: 30 days Not-Taking Tylenol 325 MG 1 tablet as needed Orally every 6 hrs Not-Taking AUVI-Q 0.3 mg as directed intramuscularly once; Duration: 1 DAY Not-Taking PROAIR HFA CFC free 90 mcg/inh 2 puff(s) inhaled 4 times a day; Duration: 90 days Not-Taking Tamoxifen Citrate 20 MG 1 tablet Orally Once a day Not-Taking OLOPATADINE NASAL 665 MCG/INH 2 SPRAY(S) INTRANASALLY 2 TIMES A DAY; Duration: 30 DAYS *Please review for potential replacement for e-prescription and drug interaction check* Not-Taking EpiPen 2-Mike 0.3 MG/0.3ML 0.3 mg intramuscularly once Not-Taking NEXIUM 20 mg 1 cap(s) orally once a day Active EPIPEN 2-MIKE 0.3 mg 0.3 mg intramuscularly once Active ZYRTEC 10 mg 1 tab(s) orally once a day Active NASACORT ALLERGY 24HR 55 mcg/inh 2 spray(s) intranasally qday - BID; Duration: 30 day(s) Active XOLAIR 150 mg 300 mg subcutaneously every 4 weeks Active MONTELUKAST 10 mg 1 tab(s) orally once a day; Duration: 30 day(s) Active Albuterol Sulfate HFA 108 (90 Base) MCG/ACT 1 puff as needed Inhalation every 4 hrs; Duration: 30 days Active ALBUTEROL SULFATE 2.5 mg/3 mL (0.083%) 3 ml by nebulizer every 6 hours; Duration: 30 days Active OLOPATADINE NASAL 665 mcg/inh 2 spray(s) intranasally 2 times a day; Duration: 30 days Active Breo Ellipta 100-25 MCG/ACT INHALE 1 PUFF ONCE DAILY Inhalation Once a day; Duration: 90 days Active Cardizem 240 1 TAB(S) ORALLY QDAY *Please rev iew and pick correct strength-formula tion from [employer] options. If intended option is not shown, discontinue and re-order from Quick Search* Active cloNIDine HCl 0.1 MG 1 tab(s) orally up to TID PRN PRN Active CoQ-10 100 MG 1 cap(s) orally once a day Active Crestor 10 MG 1 tab(s) orally once a day (at bedtime) Active Levothyroxine Sodium 125 MCG 1 tab(s) orally once a day Active Methocarbamol 500 MG TAKE 1 TABLET BY MOUTH THREE TIMES DAILY NEEDED; Duration: 30 Active Spironolactone 50 MG 1 tab(s) orally 2 times a day; Duration: 30 day(s) Active SIT (Cluster) variable - see record per schedule subcutaneous per schedule; Duration: 999 Active Nasacort Allergy 24HR 55 MCG/ACT 2 spray(s) intranasally qday - BID; Duration: 30 day(s) Active Albuterol Sulfate (2.5 MG/3ML) 0.083% 3 ml by nebulizer every 6 hours; Duration: 30 days Active Auvi-Q 0.3 MG/0.3ML as directed intramuscularly once; Duration: 1 DAY Active Montelukast Sodium 10 MG TAKE 1 TABLET BY MOUTH EVERY DAY; Duration: 90 Active Vitamin D3 125 MCG (5000 UT) 1 capsule Orally Once a day Active Magnesium Glycinate 120 MG as directed Orally Active SIT (TRADITIONAL) variable per schedule SC per schedule; Duration: 99 days Active Fosamax 70 MG 1 tablet 30 minutes before the first food, beverage or medicine of the day with plain water Orally Active Xolair 150 MG 300 mg subcutaneously every 4 weeks Active Fish Oil 1200 MG 1 CAP ORALLY TID *Please review and pick correct strength-formula tion from [employer] options. If intended option is not shown, discontinue and re-order from Quick Search* Active NexIUM 20 MG 1 cap(s) orally once a day Active ZyrTEC Allergy 10 MG 1 tab(s) orally once a day Active Azelastine HCl 137 MCG/SPRAY SPRAYS 2 SPRAYS INTO EACH NOSTRIL TWICE DAILY; Duration: 25 Active Vitamin B12 1000 MCG 1 tablet Orally Once a day Active BONIVA 150 MG 1 TAB(S) ORALLY ONCE A MONTH; Duration: 30 DAY(S) *Please review for potential replacement for e-prescription and drug interaction check* Not-Taking Trelegy Ellipta 100 MCG-62.5 MCG-25 MCG/INH 1 PUFF(S) INHALED ONCE A DAY; Duration: 30 DAYS *Please review and pick correct strength-formula tion from [employer] options. If intended option is not shown, discontinue and re-order from Quick Search* Not-Taking predniSONE 20 MG 3 tabs orally Patient to call MD for frequency; Duration: 60 days Not-Taking Albuterol Sulfate (2.5 MG/3ML) 0.083% 3 ml by nebulizer every 6 hours; Duration: 30 days Not-Taking traMADol HCl ER 100 MG 1 tab(s) orally once a day; Duration: 30 day(s) Not-Taking Breo Ellipta 100-25 MCG/ACT 1 puff Inhalation Once a day; Duration: 90 days 09/26/2024 Active Immunizations Vaccine Route Administration Date Status Comme nts NOC PedvaxHIB IM Intramuscular 06/07/2015 Administered NOC Pneumovax 23 Unknown 02/13/2014 Administered NOC Influenza-Afluria PFS Unknown 11/17/2020 Administer ed Influenza Unknown 10/24/2013 Administered Influenza Unknown 10/30/2014 Administered Influenza Unknown 11/27/2015 Administered NOC Flucelvax Quadrivalent Unknown 10/27/2016 Administe red NOC Fluzone Quadrivalent Unknown 10/31/2017 Administere d NOC Fluzone Quadrivalent Unknown 03/22/2018 Refused Flucelvax Unknown 01/25/2019 Administered NOC Flucelevax Quadrivalent Unknown 11/12/2019 Administered COVID-19 (Moderna) Unknown 11/28/2020 Administered Social History Tobacco Use: Social History Observation Description Date Details (start date - stop date) Never Smoker NA - NA Sex Assigned At : Social History Observation Description Sex Assigned At Female Tobacco Control (Standard) Question Answer Notes Tobacco use: Nonsmoker Problems Problem Type SNOMED Code ICD Code Onset Dates Problem Status W/U Status Risk Notes Problem Eruption of skin (948704345) Rash and other nonspecific skin eruption (R21) Active confirmed Problem Candidiasis of mouth (16741644) Candidal stomatitis (B37.0) Active confirmed Problem Chronic allergic conjunctivitis (30191262) Other chronic allergic conjunctivitis (H10.45) Active confirmed Problem Allergic rhinitis caused by pollen (disorder) (80324275) Allergic rhinitis due to pollen (J30.1) Active confirmed Problem Allergic rhinitis caused by animal hair and dander (474158229110788) Allergic rhinitis due to animal (cat) (dog) hair and dander (J30.81) Active confirmed Problem Allergic rhinitis (99419502) Other allergic rhinitis (J30.89) Active confirmed Problem Uncomplicated severe persistent asthma (749669221) Severe persistent asthma, uncomplicated (J45.50) Active confirmed Problem Angioneurotic edema (87087316) Angioneurotic edema, subsequent encounter (T78.3XXD) Active confirmed Problem Chronic allergic conjunctivitis (68056621) Other chronic allergic conjunctivitis (H10.45) Active confirmed Problem Eruption of skin (201880134) Rash and other nonspecific skin eruption (R21) Active confirmed Problem Gastro-esophageal reflux disease with esophagitis (895794121) Gastro-esophageal reflux disease with esophagitis (K21.0) Active confirmed Problem 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) Active confirmed Problem Nonexudative age-related macular degeneration (347952139) Nonexudative age-related macular degeneration, bilateral, 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) Active confirmed Vital Signs Blood pressure diastolic 75 mm Hg 09/26/2024 Oximetry 100 % 09/26/2024 Height 64 in 09/26/2024 Blood pressure systolic 115 mm Hg 09/26/2024 Weight 250.4 lbs 09/26/2024 BMI 42.98 kg/m2 09/26/2024 Encounters Encounter Location Date Provider Diagnosis [address] [phone] 11/29/2024 Senthil Padron Allergic rhinitis du e to pollen J30.1 ; Other allergic rhinitis J30.89 ; Allergic rhinitis due to animal (cat) (dog) hair and dander J30.81 and Other chronic allergic conjunctivitis H10.[address] [phone] 11/01/2024 Senthil Padron Allergic rhinitis du e to pollen J30.1 ; Other allergic rhinitis J30.89 ; Allergic rhinitis due to animal (cat) (dog) hair and dander J30.81 and Other chronic allergic conjunctivitis H10.[address] [address] 08/29/2024 Senthil Padron Allergic rhinitis du e to pollen J30.1 ; Other allergic rhinitis J30.89 ; Allergic rhinitis due to animal (cat) (dog) hair and dander J30.81 and Other chronic allergic conjunctivitis H10.[address] [address] 08/01/2024 Senthil Padron Allergic rhinitis du e to pollen J30.1 ; Other allergic rhinitis J30.89 ; Allergic rhinitis due to animal (cat) (dog) hair and dander J30.81 and Other chronic allergic conjunctivitis H10.45 [facility] [address] [place] [phone] 06/28/2024 Senthil Padron Allergic rhinitis du e to pollen J30.1 ; Other allergic rhinitis J30.89 ; Allergic rhinitis due to animal (cat) (dog) hair and dander J30.81 and Other chronic allergic conjunctivitis H10.45 [facility] [address] [place] [phone] 05/30/2024 Senthil Padron Allergic rhinitis du e to pollen J30.1 ; Other allergic rhinitis J30.89 ; Allergic rhinitis due to animal (cat) (dog) hair and dander J30.81 and Other chronic allergic conjunctivitis H10.45 [facility] [address] [place] [phone] 04/25/2024 Senthil Padron Allergic rhinitis du e to pollen J30.1 ; Other allergic rhinitis J30.89 ; Allergic rhinitis due to animal (cat) (dog) hair and dander J30.81 and Other chronic allergic conjunctivitis H10.45 [facility] [address] [place] [phone] 03/28/2024 Senthil Padron Allergic rhinitis du e to pollen J30.1 ; Other allergic rhinitis J30.89 ; Allergic rhinitis due to animal (cat) (dog) hair and dander J30.81 and Other chronic allergic conjunctivitis H10.45 [facility] [address] [place] [phone] 02/25/2024 Senthil Padron Allergic rhinitis du e to pollen J30.1 ; Other allergic rhinitis J30.89 ; Allergic rhinitis due to animal (cat) (dog) hair and dander J30.81 and Other chronic allergic conjunctivitis H10.45 [facility] [address] [place] [phone] 02/15/2024 Senthil Padron Allergic rhinitis du e to pollen J30.1 ; Other allergic rhinitis J30.89 ; Allergic rhinitis due to animal (cat) (dog) hair and dander J30.81 and Other chronic allergic conjunctivitis H10.45 [facility] [address] [place] [phone] 01/20/2024 Senthil Padron Allergic rhinitis du e to pollen J30.1 ; Other allergic rhinitis J30.89 ; Allergic rhinitis due to animal (cat) (dog) hair and dander J30.81 and Other chronic allergic conjunctivitis H10.45 [facility] [address] [place] [phone] 01/04/2024 Senthil Padron Allergic rhinitis du e to pollen J30.1 ; Other allergic rhinitis J30.89 ; Allergic rhinitis due to animal (cat) (dog) hair and dander J30.81 and Other chronic allergic conjunctivitis H10.45 [facility] [address] [place] [phone] 12/21/2023 Senthil Padron Allergic rhinitis du e to pollen J30.1 ; Other allergic rhinitis J30.89 ; Allergic rhinitis due to animal (cat) (dog) hair and dander J30.81 and Other chronic allergic conjunctivitis H10.45 [facility] [address] [place] [phone] 03/01/2024 Dusty Vuong Allergic rhinitis du e [...] encounter T78.3XXD and Essential (primary) hypertension I10 [facility] [address] [place] [phone] 09/26/2024 Patrica Conroy Allergic rhinitis du e to pollen J30.1 ; Allergic rhinitis due to animal (cat) (dog) hair and dander J30.81 ; Other allergic rhinitis J30.89 ; Other chronic allergic conjunctivitis H10.45 ; Severe persistent asthma, uncomplicated J45.50 ; Other diseases of vocal cords J38.3 ; Gastro-esophageal reflux disease with esophagitis K21.0 and Angioneurotic edema, subsequent encounter T78.3XXD [address] [address] 06/07/2024 Dusty Vuong Allergic rhinitis du e to pollen J30.1 ; Allergic rhinitis due to animal (cat) (dog) hair and dander J30.81 ; Other allergic rhinitis J30.89 ; Other chronic allergic conjunctivitis H10.45 ; Severe persistent asthma, uncomplicated J45.50 ; Other diseases of vocal cords J38.3 ; Gastro-esophageal reflux disease with esophagitis K21.0 and Angioneurotic edema, subsequent encounter T78.3XXD [address] [phone] 11/22/2024 Patrica Conroy Allergic rhinitis du e to animal (cat) (dog) hair and dander J30.[address] [address] 09/07/2024 Patrica Conroy [address] [phone] 03/16/2024 Dusty Vuong Allergic rhinitis du e to animal (cat) (dog) hair and dander J30.[address] [phone] 09/09/2024 Patrica Conroy Severe persistent asthma, uncomplicated J45.[address] [address] 08/01/2024 Patrcia Conroy Severe persistent asthma, uncomplicated J45.[address] [phone] 05/10/2024 Dusty Vuong Assessments Encounter Date Diagnosis (ICD Code) Assessment Notes Treatment Notes Treatment Clinical Notes Section Notes 12/21/2023 Allergic rhinitis due to pollen (ICD-10 [...] 05/30/2024 Other allergic rhinitis (ICD-10 - J30.89) 06/07/2024 Allergic rhinitis due to pollen (ICD-10 - J30.1) Sonia clearly suffers from atopic disease given prior skin tests and history. Accordingly, we have encouraged compliance with her aggressive medication regimen, nasal washes and allergy-specific avoidance measures. We previously underwent additonal SPT to trees and perineals allergens of which multiple additional allergens were found. She continues on MM with reformulated vials with continued significant benefit reported. Not due for SCIT today - Continue nasal antihistamine -Continue to premedicate with Zyrtec -Increase SCIT frequency in peak seasons PRN -Return per schedule for SCIT and 3 months for E&M 06/07/2024 Allergic rhinitis due to animal (cat) (dog) hair and dander (ICD-10 - J30.81) Continue avoidance, meds and SCIT per schedule. Increase frequency PRN 06/28/2024 Allergic rhinitis due to pollen (ICD-10 - J30.1) 06/28/2024 Other allergic rhinitis (ICD-10 - J30.89) 08/01/2024 Severe persistent asthma, uncomplicated (ICD-10 - J45.50) 08/01/2024 Allergic rhinitis due to pollen (ICD-10 - J30.1) 08/01/2024 Other allergic rhinitis (ICD-10 - J30.89) 08/29/2024 Other allergic rhinitis (ICD-10 - J30.89) 09/09/2024 Severe persistent asthma, uncomplicated (ICD-10 - J45.50) 09/26/2024 Allergic rhinitis due to pollen (ICD-10 - J30.1) Sonia clearly suffers from atopic disease given prior skin tests and history. Accordingly, we have encouraged compliance with her aggressive medication regimen, nasal washes and allergy-specific avoidance measures. We previously underwent additional SPT to trees and perineals allergens of which multiple additional allergens were found. She continues on MM with reformulated vials with continued significant benefit reported. - Continue nasal antihistamine. - Continue to premedicate with Zyrtec. SCIT dosing tolerated today without issue. - Increase SCIT frequency in peak seasons PRN - Return per schedule for SCIT and 3 months for E&M 09/26/2024 Allergic rhinitis due to animal (cat) (dog) hair and dander (ICD-10 - J30.81) Continue avoidance, meds and SCIT per schedule. Increase frequency PRN 08/29/2024 Allergic rhinitis due to pollen (ICD-10 - J30.1) 11/01/2024 Allergic rhinitis due to pollen (ICD-10 - J30.1) 11/01/2024 Other allergic rhinitis (ICD-10 - J30.89) 11/22/2024 Allergic rhinitis due to animal (cat) (dog) hair and dander (ICD-10 - J30.81) 11/29/2024 Allergic rhinitis due to pollen (ICD-10 - J30.1) 11/29/2024 Other allergic rhinitis (ICD-10 - J30.89) 11/29/2024 Allergic rhinitis due to animal (cat) (dog) hair and dander (ICD-10 - J30.81) 11/01/2024 Allergic rhinitis due to animal (cat) (dog) hair and dander (ICD-10 - J30.81) 08/29/2024 Allergic rhinitis due to animal (cat) (dog) hair and dander (ICD-10 - J30.81) 09/26/2024 Other allergic rhinitis (ICD-10 - J30.89) Continue avoidance, meds and SCIT per schedule. Increase frequency PRN 08/01/2024 Allergic rhinitis due to animal (cat) (dog) hair and dander (ICD-10 - J30.81) 06/28/2024 Allergic rhinitis due to animal (cat) (dog) hair and dander (ICD-10 - J30.81) 06/07/2024 Other allergic rhinitis (ICD-10 - J30.89) Continue avoidance, meds and SCIT per schedule. Increase frequency PRN 05/30/2024 Allergic rhinitis due to animal (cat) [...] hair and dander (ICD-10 - J30.81) 12/21/2023 Other chronic allergic conjunctivitis (ICD-10 - [...] Other chronic allergic conjunctivitis (ICD-10 - H10.45) 06/07/2024 Other chronic allergic conjunctivitis (ICD-10 - H10.45) Given ocular signs and symptoms, I encouraged allergy avoidance measures and meds as above. If symptoms persist, consider adding additional medications including intraocular antihistamine/ma st cell stabilizer, PRN and continue SCIT as an adjunctive measure 08/01/2024 Other chronic allergic conjunctivitis (ICD-10 - H10.45) 08/29/2024 Other chronic allergic conjunctivitis (ICD-10 - H10.45) 09/26/2024 Other chronic allergic conjunctivitis (ICD-10 - H10.45) Given ocular signs and symptoms, I encouraged allergy avoidance measures and meds as above. If symptoms persist, consider adding additional medications including intraocular antihistamine/ma st cell stabilizer, PRN and continue SCIT as an adjunctive measure 11/01/2024 Other chronic allergic conjunctivitis (ICD-10 - H10.45) 06/28/2024 Other chronic allergic conjunctivitis (ICD-10 - H10.45) 11/29/2024 Other chronic allergic conjunctivitis (ICD-10 - H10.45) 09/26/2024 Severe persistent asthma, uncomplicated (ICD-10 - J45.50) Sonia continues to report less asthma symptoms with Xolair and SCIT. Will continue Xolair and SCIT, as she feels the combination of the 2 have made the biggest improvement in her asthma control, previously crediting Xolair with saving my life. - Xolair was previously denied as there is option for at home administration. Previously discussed this with Soniaand she chose to opt with at home dosing. We have discussed in detail her risk for having a reaction to the Xolair. Also aware that she needs to be seen for in office evaluation every 3 months. She has an injection log, is sending us photos. - Will continue with at home dosing log, new log given today. - We elected to trial Trelegy previously with 10% improvement. That said, it is too expensive and is back to using Breo of which she ishappy with current control. Refills provided. - No interval antibiotics or steroids. - Continue to brush, floss, and rinse her mouth after ICS/LABA use and to use a spacer with both her inhalers. - AIE kept on hand at all times given risk of anaphylaxis with Xolair. - Continue HELEN as-needed per AAP. - Follow-up in 3 months for E&M. Advised obtaining PFT in office, which we again discussed today 06/07/2024 Severe persistent asthma, uncomplicated (ICD-10 - [...] provided today. - We elected to trail Treashley previously with 10% improvement That said, it is too expensive and is back to using Breo of which she if happy with current control. - She did recently overcome bronchtiis 3 weeks ago. No oral steroids given. Since then, she feels she has returned to baseline. -Continue to brush, floss, and rinse her mouth after ICS/LABA use and to use a spacer with both her inhalers. -AIE kept on hand at all times given risk of anaphylaxis with Xolair. May want to conider different biologic if need for oral steroids continues -AAP reviewed -Follow-up in 3 months for E&M. 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 - No interval episodes, consider input by second speech therapist if needed 09/26/2024 Gastro-esophageal reflux disease with esophagitis (ICD-10 - K21.0) Reflux seen by ENT - Dr. Taylor - who performed an upper scope in 01/2015 while episode of laryngospasm was active. - Continue Nexium 40 mg in AM and 20 mg in PM, highly consider updated GI evaluation 06/07/2024 Gastro-esophageal reflux disease with esophagitis (ICD-10 - K21.0) Reflux seen by ENT - Dr. Taylor - who performed an upper scope in 01/2015 while episode of laryngospasm was active. -Continue Nexium 40mg in AM and 20mg in PM 03/01/2024 Gastro-esophageal reflux disease with esophagitis (ICD-10 - K21.0) Reflux seen by ENT - Dr. Taylor - who performed an upper scope in 01/2015 while episode of laryngospasm was active. -Continue Nexium 40mg in AM and 20mg in PM 03/01/2024 Angioneurotic edema, subsequent encounter (ICD-10 - [...] AIE on patient at all times 06/07/2024 Angioneurotic edema, subsequent encounter (ICD-10 - [...] issues. AIE on patient at all times 09/26/2024 Angioneurotic edema, subsequent encounter (ICD-10 - T78.3XXD) [...] or emergency, continue to monitor 06/07/2024 Other 09/26/2024 Other 03/01/2024 Other Plan Of Treatment Pending Test Test Name Order Date Spirometry 08/25/2022 Next Appt Details Provider Name:Senthil Padron , 12/27/2024 04:20:00 PM, [address] [facility], [address], [place], [address], Provider Name:Patrica tamayo, 02/13/2025 02:00:00 PM, [address] [facility], [address], [place], [address], Insurance Providers Payer Name Payer Address Payer Phone Subscriber Number Group Number Insured Name Patient Relationship to Insured Coverage Start Date Coverage End Date [employer] [address] [place] [address] [id number] Sonia Reynoso Self - patient is the insured Medical (General) History Medical History History ICD Code Pulmonary embolism, septic Palpitations ASTHMA NOS Hypothyroidism NOS Benign hypertension SLEEP APNEA NOS Hyperlipidemia DVT Vocal Cord Dysfunction Nonexudative age-related macular degener ation, bilateral, early dry stage H35.3131 Macular degeneration atypical duct hyperplasia Type II diabetes Surgical History Surgery Date(Month/Year) ARTHROSCOPY KNEE SURG LEFT 1981 SINUS SURGERY PROCEDURE 1985 1987 LEFT ARM CRUSHED 1994 ABLATION 1992 CHOLEYSTECTOMY 2009 UTERINE POLYP REMOVAL 2016 cataract removal 11/2021, 01/2022 Left breast biopsy 08/2023 Hospitalization History Reason Date(Month/Year) ASTHMA (4 DAYS) 2015 PULMONARY EMBOLISM (3 DAYS) 2003 (7 DAYS) 1987 PLEURISY ( 3 DAYS) 1974
--- OUTSIDE RECORDS SUMMARY | 2024-12-08 15:36 | XMS_ITS | Clinical Summary ---
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 This disclosure is being madepursuant to the Care Everywhere program and may not contain all information available regarding this patient. 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 Respiratory Rate 14 02/19/2020 11:41 AM 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 Oxygen Saturation 99% 02/19/2020 11:41 AM 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 Inhaled Oxygen Concentration - - Weight 111.1 kg (245 lb) 02/19/2020 11:41 AM 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 Height 165.1 cm (5' 5) 02/19/2020 11:41 AM 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 Body Mass Index 40.77 02/19/2020 11:41 AM 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 Plan of Treatment Health Maintenance Due Date Last Done Comments BONE DENSITY TESTING 1959 COLOGUARD (AGES 45-75) - COLON CA SCREENING 1959 COLON MONITORING 1959 COLONOSCOPY - COLON CA SCREENING 1959 CT COLONOGRAPHY - COLON CA SCREENING 1959 Colorectal Cancer Screening 1959 FIT - COLON CA SCREENING 1959 FLEX SIG - COLON CA SCREENING 1959 MAMMOGRAM 1959 HIV SCREENING 1974 HEPATITIS C SCREENING 04/07/1977 DTAP/TDAP/TD VACCINES (1 - Tdap) 1978 PAP SMEAR 1980 PNEUMOCOCCAL VACCINE 50+ (1 of 1 - PCV) 2009 ZOSTER VACCINE (1 of 2) 2009 SCREENING FOR DIABETES 05/22/2018 Respiratory Syncytial Virus (RSV) Vaccine Pt: or over 60 yrs (1 - Risk 60-74 years 1-dose series) 2019 DEPRESSION SCREENING 02/24/2024 COVID-19 VACCINE (1 - season) 2024 INFLUENZA VACCINE (#1) 2024 0, 01/25/2019, 10/28/2018, Additional history exists HEPATITIS B [...] Patient Date of Phone Billing Address Personal/Family [address] [place] [address] [employer] * Guarantor: [employer] Account Type Relation to Patient Date of Phone Billing Address Personal/Family [address] [place] [address] [employer] * Guarantor: [employer] Account Type Relation to Patient Date of Phone Billing Address Personal/Family [address] [place] [address] [employer] 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
== END 2024-12-08 13:37 | disposition home or self-care (01) ==
PROVIDERS: PCP Student in an Organized Health Care Education/Training Program; Visit Provider Surgery
DX: N60.82 Other benign mammary dysplasias of left breast (principal); N60.81 Other benign mammary dysplasias of right breast
CPT/HCPCS: 77049; A9577; C8908

== ENCOUNTER 2025-02-14 14:39 | Outpatient (CLI) | payer OTHER, SELFPAY ==
--- OUTSIDE RECORDS SUMMARY | 2024-10-27 10:20 | XMS_ITS ---
Author Organization [facility] [place] ([address]) Address [address] [place] [address] Care Team Providers Care Rn Concurrent Review Name Role Phone Iker Haynes Primary Care Provider Patrica Chow Unavailable [phone] Storm Chen MD, Cachorro Unavailable Lavern Senthil Bae Unavailable [phone] REASON FOR VISIT SCIT - Traditional Schedule Allergy Immunotherapy (Week ) Social History Sex Assigned At : Social History Observation Description Sex Assigned At Female Encounters Encounter Location Date Provider Diagnosis [facility] [address] [place] [address] 10/27/2024 Senthil Padron Allergic rhinitis du e to pollen J30.1 ; Other allergic rhinitis J30.89 ; Allergic rhinitis due to animal (cat) (dog) hair and dander J30.81 and Other chronic allergic conjunctivitis H10.45 Assessments Encounter Date Diagnosis (ICD Code) Assessment Notes Treatment Notes Treatment Clinical Notes Section Notes 10/27/2024 Allergic rhinitis due to pollen (ICD-10 - J30.1) 10/27/2024 Other allergic rhinitis (ICD-10 - J30.89) 10/27/2024 Allergic rhinitis due to animal (cat) (dog) hair and dander (ICD-10 - J30.81) 10/27/2024 Other chronic allergic conjunctivitis (ICD-10 - H10.45) Plan Of Treatment Next Appt Details Follow Up: As scheduled, Anne son: Provider Name:Senthil Padron , 02/21/2025 02:00:00 PM, [address] [facility], [address], [place], [address], Provider Name:Senthil Padron , 03/22/2025 04:20:00 PM, [address] [facility], [address], [place], [address], Progress Notes * Sonia COBB RDOB:1960 (64 yo F)Acc No.[id number]:10/27/2024 SCIT-Aeroallergen Patient: Vicente RIVEROri Negar Provider: Kushal Padron MD :1960 A ge:64 Y S ex:Female Date:10/27/2024 [address] [facility] Pcp:Iker Haynes Subjective: * Chief Complaints: * 1 . SCIT - Traditional Schedule Allergy Immunotherapy (Week ). * HPI: * Introduction: The patient is [...] immunotherapy) is on file. * Medical History: Objective: * Vitals: Assessment: * Assessment: 1. A llergic rhinitis due to pollen - J30.1 (Primary) 2 . O ther allergic rhinitis - J30.89 3 . A llergic rhinitis due to animal (cat) (dog) hair and dander - J30.81 4 . O ther chronic allergic conjunctivitis - H10.45 Plan: * Treatment: * Preventive Medicine: Counseling: E xercise A [...] Information: * Visit Code: * Procedure Codes: 51535 IMMUNOTHERAPY INJECTIONS. * Electronic signature of Eliceo Padron MD, FAAAAI on 02/14/2025 at 02:46 PM HAND FABRIC CUTTER Sign off status: Pending * Provider: Kushal Padron MD Date: 0 10/27/2024 Generated for Berniei susana/Isiah/eTransmitting on: 1 04/17/2024 02:46 PM HAND FABRIC CUTTER History and Physical Notes * HPI (History [...]
--- OUTSIDE RECORDS SUMMARY | 2025-02-13 08:00 | XMS_ITS ---
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 Has since completed cluster build-up for reformulated vials with significant benefit., Severe, persistent asthma follow-up: Remains on q 4 week Xolair injections. Previously overcame COVID s/p multiple rounds of steroids. Continues daily Breo., Known severe VCD and laryngospasm with prior ER visits, hospitalizations, and intubations. 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 Medications Medication SIG (Take, Route, Frequency, Duration) Notes Start Date End Date Status Breo Ellipta 100-25 MCG/ACT 1 puff Inhalation Once a day; Duration: 90 days Active Albuterol Sulfate 108 (90 Base) MCG/ACT 2 puff as needed Inhalation every 4 hrs; Duration: 30 days Active Auvi-Q 0.3 MG/0.3ML as directed Injection as needed; Duration: 30 days Active SIT (Traditional) variable - see record per schedule subcutaneous per schedule; Duration: 999 days Active ALBUTEROL SULFATE 2.5 mg/3 mL (0.083%) 3 ml by nebulizer every 6 hours; Duration: 30 days Active ZYRTEC 10 mg 1 tab(s) orally once a day Active EPIPEN 2-JADE 0.3 mg 0.3 mg intramuscularly once Active NEXIUM 20 mg 1 cap(s) orally once a day Active XOLAIR 150 mg 300 mg subcutaneously every 4 weeks Active NASACORT ALLERGY 24HR 55 mcg/inh 2 spray(s) intranasally qday - BID; Duration: 30 day(s) Active Montelukast Sodium 10 MG 1 tablet Orally Once a day, at night; Duration: 90 days 02/13/2025 Active traMADol HCl ER 100 MG 1 tab(s) orally once a day; Duration: 30 day(s) Not-Taking Azelastine HCl 137 MCG/SPRAY 2 sprays in each nostril Nasally Twice a day; Duration: 90 days 02/13/2025 Active Albuterol Sulfate (2.5 MG/3ML) 0.083% 3 ml by nebulizer every 6 hours; Duration: 30 days Not-Taking predniSONE 20 MG 3 tabs orally Patient to call MD for frequency; Duration: 60 days Not-Taking traMADol HCl ER 200 MG 1 tablet Orally Once a day Not-Taking TRELEGY ELLIPTA 100 mcg-62.5 mcg-25 mcg/inh 1 puff(s) inhaled once a day; Duration: 30 days Not-Taking BONIVA 150 MG 1 TAB(S) ORALLY ONCE A MONTH; Duration: 30 DAY(S) *Please review for potential replacement for e-prescription and drug interaction check* Not-Taking Trelegy Ellipta 100 MCG-62.5 MCG-25 MCG/INH 1 PUFF(S) INHALED ONCE A DAY; Duration: 90 DAYS *Please review and pick correct strength-formula tion from [facility] [place] options. If intended option is not shown, discontinue and re-order from Quick Search* Not-Taking Trelegy Ellipta 100 MCG-62.5 MCG-25 MCG/INH 1 PUFF(S) INHALED ONCE A DAY; Duration: 30 DAYS *Please review and pick correct strength-formula tion from [facility] [place] options. If intended option is not shown, discontinue and re-order from Quick Search* Not-Taking OLOPATADINE NASAL 665 MCG/INH 2 SPRAY(S) INTRANASALLY 2 TIMES A DAY; Duration: 30 DAYS *Please review for potential replacement for e-prescription and drug interaction check* Not-Taking Tamoxifen Citrate 20 MG 1 tablet Orally Once a day Not-Taking Plavix 75 MG 1 tab(s) orally once a day Not-Taking EpiPen 2-Jade 0.3 MG/0.3ML 0.3 mg intramuscularly once Not-Taking PROAIR HFA CFC free 90 mcg/inh 2 puff(s) inhaled 4 times a day; Duration: 90 days Not-Taking Azelastine HCl 137 MCG/SPRAY SPRAYS 2 SPRAYS INTO EACH NOSTRIL TWICE DAILY; Duration: 25 Active BREO ELLIPTA 100 mcg-25 mcg/inh 1 puff(s) inhaled once a day; Duration: 30 days Not-Taking Montelukast Sodium 10 MG TAKE 1 TABLET BY MOUTH EVERY DAY; Duration: 90 Active AUVI-Q 0.3 mg as directed intramuscularly once; Duration: 1 DAY Not-Taking Tylenol 325 MG 1 tablet as needed Orally every 6 hrs Not-Taking Spironolactone 50 MG 1 tab(s) orally 2 times a day; Duration: 30 day(s) Active Albuterol Sulfate HFA 108 (90 Base) MCG/ACT 1 puff as needed Inhalation every 4 hrs; Duration: 30 days Active SIT (Cluster) variable - see record per schedule subcutaneous per schedule; Duration: 999 Active Methocarbamol 500 MG TAKE 1 TABLET BY MOUTH THREE TIMES DAILY NEEDED; Duration: 30 Active Levothyroxine Sodium 125 MCG 1 tab(s) orally once a day Active Albuterol Sulfate (2.5 MG/3ML) 0.083% 3 ml by nebulizer every 6 hours; Duration: 30 days Active cloNIDine HCl 0.1 MG 1 tab(s) orally up to TID PRN PRN Active Cardizem 240 1 TAB(S) ORALLY QDAY *Please rev iew and pick correct strength-formula tion from [facility] [place] options. If intended option is not shown, discontinue and re-order from Quick Search* Active Crestor 10 MG 1 tab(s) orally once a day (at bedtime) Active CoQ-10 100 MG 1 cap(s) orally once a day Active Nasacort Allergy 24HR 55 MCG/ACT 2 spray(s) intranasally qday - BID; Duration: 30 day(s) Active Auvi-Q 0.3 MG/0.3ML as directed intramuscularly once; Duration: 1 DAY Active ZyrTEC Allergy 10 MG 1 tab(s) orally once a day Active NexIUM 20 MG 1 cap(s) orally once a day Active Fish Oil 1200 MG 1 CAP ORALLY TID *Please review and pick correct strength-formula tion from [facility] [place] options. If intended option is not shown, discontinue and re-order from Quick Search* Active Magnesium Glycinate 120 MG as directed Orally Active Vitamin D3 125 MCG (5000 UT) 1 capsule Orally Once a day Active Fosamax 70 MG 1 tablet 30 minutes before the first food, beverage or medicine of the day with plain water Orally Active SIT (TRADITIONAL) variable per schedule SC per schedule; Duration: 99 days Active Xolair 150 MG 300 mg subcutaneously every 4 weeks Active Vitamin B12 1000 MCG 1 tablet Orally Once a day Active Multivitamin - 1 tablet Orally Once a day Active Vitamin C 500 MG 1 tablet Orally Once a day Active Calcium 600 MG 1 tablet with meals Orally Twice a day Active Folic Acid 1 MG 1 tablet Orally Once a day Active metFORMIN HCl 500 MG 1 tablet with a meal Orally Once a day Active Voltaren 1 % as directed Externally Active traMADol HCl ER 200 MG 1 tablet Orally Once a day Active Social History Tobacco Use: Social History Observation Description Date Details (start date - stop date) Never Smoker NA - NA Sex Assigned At : Social History Observation Description Sex Assigned At Female Tobacco Control (Standard) Question Answer Notes Tobacco use: Nonsmoker AUDIT-C (Standard) Question Answer Notes Did you have a drink containing alcohol in the p ast year? No Points 0 Interpretation Negative Vital Signs Blood pressure systolic 126 mm Hg 02/14/20 25 Blood pressure diastolic 81 mm Hg 025 Height 64 in 02/13/2025 Weight 250.8 lbs 02/13/2025 BMI 43.05 kg/m2 02/13/2025 Oximetry 98 % 02/13/2025 Encounters Encounter Location Date Provider Diagnosis [facility] [address] [facility] [address] [place] [address] 02/13/2025 Patrica Conroy Allergic rhinitis du e to pollen J30.1 ; Allergic rhinitis due to animal (cat) (dog) hair and dander J30.81 ; Other allergic rhinitis J30.89 ; Other chronic allergic conjunctivitis H10.45 ; Severe persistent asthma, uncomplicated J45.50 ; Other diseases of vocal cords J38.3 ; Gastro-esophageal reflux disease with esophagitis K21.0 ; Angioneurotic edema, subsequent encounter T78.3XXD and Elevated blood-pressure reading, without diagnosis of hypertension R03.0 Assessments Encounter Date Diagnosis (ICD Code) Assessment Notes Treatment Notes Treatment Clinical Notes Section Notes 02/13/2025 Allergic rhinitis due to pollen (ICD-10 - [...] antihistamine. - Continue to premedicate with Zyrtec. Dosing held today due to URI. - Increase SCIT frequency in peak seasons PRN - Return per schedule for SCIT and 3 months for E&M 02/13/2025 Allergic rhinitis due to animal (cat) (dog) hair and dander (ICD-10 - J30.81) Continue avoidance, meds and SCIT per schedule. Increase frequency PRN 02/13/2025 Other allergic rhinitis (ICD-10 - J30.89) Continue avoidance, meds and SCIT per schedule. Increase frequency PRN 02/13/2025 Other chronic allergic conjunctivitis (ICD-10 - H10.45) Given ocular signs and symptoms, I encouraged allergy avoidance measures and meds as above. If symptoms persist, consider adding additional medications including intraocular antihistamine/ma st cell stabilizer, PRN and continue SCIT as an adjunctive measure 02/13/2025 Severe persistent asthma, uncomplicated (ICD-10 - J45.50) [...] for in office evaluation every 3 months. Injection log uploaded. - Will continue with at home dosing log. - We elected to trial Trelegy previously with 10% improvement. That said, it is too expensive and is back to using Breo of which she ishappy with current control. . - No interval antibiotics or steroids. - [...] in office, which we again discussed today 02/13/2025 Other diseases of vocal cords (ICD-10 - [...] input by second speech therapist if needed 02/13/2025 Gastro-esophageal reflux disease with esophagitis (ICD-10 - K21.0) Reflux seen by ENT - Dr. Taylor - who performed an upper scope in 01/2015 while episode of laryngospasm was active. - Continue Nexium 40 mg in AM and 20 mg in PM, highly consider updated GI evaluation 02/13/2025 Angioneurotic edema, subsequent encounter (ICD-10 - T78.3XXD) [...] issues. AIE on patient at all times 02/13/2025 Elevated blood-pressure reading, without diagnosis of hypertension (ICD-10 - R03.0) 02/13/2025 Other Plan Of Treatment Medication Medication Name Sig Start Date Stop Date Notes Breo Ellipta 100-25 MCG/ACT 1 puff Inhal ation Once a day; Duration: 90 days Albuterol Sulfate 108 (90 Base) MCG/ACT 2 puff as needed Inhalation every 4 hrs; Duration: 30 days Auvi-Q 0.3 MG/0.3ML as directed Injectio n as needed; Duration: 30 days SIT (Traditional) variable - see record per schedule subcutaneous per schedule; Duration: 999 days ALBUTEROL SULFATE 2.5 mg/3 mL (0.083%) 3 ml by nebulizer every 6 hours; Duration: 30 days ZYRTEC 10 mg 1 tab(s) orally once a day EPIPEN 2-JADE 0.3 mg 0.3 mg intramuscularly once NEXIUM 20 mg 1 cap(s) orally once a day XOLAIR 150 mg 300 mg subcutaneousl y every 4 weeks NASACORT ALLERGY 24HR 55 mcg/inh 2 spray(s) intranasally qday - BID; Duration: 30 day(s) Montelukast Sodium 10 MG 1 tablet Orally Once a day, at night; Duration: 90 days 02/13/2025 Azelastine HCl 137 MCG/SPRAY 2 sprays in each nostril Nasally Twice a day; Duration: 90 days 02/13/2025 Treatment Notes Assessment Notes Allergic rhinitis due [...] antihistamine. - Continue to premedicate with Zyrtec. Dosing held today due to URI. - Increase SCIT frequency in peak seasons [...] for in office evaluation every 3 months. Injection log uploaded. - Will continue with at home dosing log. - We elected to trial Trelegy previously with 10% improvement. That said, it is too expensive and is back to using Breo of which she ishappy with current control. . - No interval antibiotics or steroids. - [...] in office, which we again discussed today Other diseases of vocal cords Sonia has [...] in PM, highly consider updated GI evaluation Angioneurotic edema, subsequent encounte r Sonia has [...] issues. AIE on patient at all times Next Appt Details Follow Up: as scheduled, 3 M [facility], Reason: SCIT, Evaluation and Management Provider Name:Senthil Padron , 02/21/2025 02:00:00 PM, [address] [facility] [address], [place], [address], Provider Name:Senthil Padron , 03/22/2025 04:20:00 PM, [address], [place], [address], Progress Notes * Sonia COBB RDOB:1960 (64 yo F)Acc No.[id number]:02/13/2025 Asthma F/U Patient: Sonia RIVERO Provider: Arlene Conroy DNP [employer]-C :1960 A ge:64 Y S ex:Female Date:02/13/2025 Address:[facility] [address] [facility] Pcp:Iker Haynes Subjective: * Chief Complaints: * A follow-up: Continues doing well with avoidance measures, medications, and SCIT. Has since completed cluster build-up for reformulated vials with significant benefit.Severe, persistent asthma follow-up: Remains on q 4 week Xolair injections. Previously overcame COVID s/p multiple rounds of steroids. Continues daily Breo.Known severe VCD and laryngospasm with prior ER visits, hospitalizations, and intubations. 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 * HPI: * Introduction: HPI: S deisy Cobb, a 64-year-old female with GERD, VCD, ARC and persistent asthma who returns for interval evaluation and management. Sonia was previously followed by LIYA Vuong. She is alone for today's visit. Sonia returns today reporting a URI, however overall she is doing well. She was seen by her PCP earlier, started on a z-pack. S he continues on reformulated vials, which she feels has been beneficial. No issues reported with SCIT dosing. Her day-to-day allergy symptoms have seemed to be improving. Sonia continues doing her Xolair injections at home with self-injection every 4 weeks. Tolerated last dose without adverse reactions.Prior to Covid, her last asthma flare was [...] bumped to to Trelegy previously but continues Breo due to cost. Despire current illness, no reports of lower airway symptoms. Steroids historically worsens her reflux leading to laryngospasms. Sonia has also seen speech therapy in the past for VCD. She is currently taking Nexium 40 mg AM and 20mg PM and believes her GERD is well controlled. Today, she reports no fevers, chills, night sweats or other constitutional symptoms. * ROS: A LLERGY: Positive p er [...] history, otherwise unremarkable. * Medical History: * Surgical History: A RTHROSCOPY KNEE SURG LEFT 1981SINUS SURGERY PROCEDURE 1986C-SECTION 1987LEFT ARM CRUSHED 1995ABLATION 1993CHOLEYSTECTOMY 2010UTERINE POLYP REMOVAL 2016cataract removal 11/2021, 01/2022Left breast biopsy 08/2023 * Hospitalization/Major Diagno stic Procedure: P LEURISY ( 3 DAYS) 1975C-SECTION (7 DAYS) 1987PULMONARY EMBOLISM (3 DAYS) 2004ASTHMA (4 DAYS) 2014 * Family History: F ather: . M other: 81 yrs. S iblings: alive. C daramichelle: alive.?3 sister(s) . 1 son(s) , 1 daughter(s) . . There is no other family history of cancer, CF, diabetes, emphysema or heart disease. * Social History: M arital Status d ivorced. Thony coffey Number of children: 2 A lcohol Screening n one. C affeine: yes, daily. S moking H ave you ever smoked tobacco:: never smoked. R ecreational drug use n o. E xercise b icycle riding, daily. O ccupation S LP 32 years. O ccup. exposure: yes, specify:exposure to children with ongoing illnesses. E nvironmental History P [place]. Patient has lived there 13 years. Two people live in the home. Home has a basement with no water damage. No smokers in the home. Central air conditioning and electric heating in the home. No fireplace or wood burning stove. Patient doesn't vacuum the home. Patient uses air purification system. Patient has pillow and mattress dust proof encasing's. Patient has humidifier on her CPAP machine. No pets in the home. Patient uses fabric softener. Five plants in the home kept in the window. Carpeting in the bedrooms and basement, age of the carpet is 10 years old. Mattress is about 13 years old. Pillows are synthetic and about 3 years old. Bedding material used are all polyester and cotton.. T obacco Control (Standard) Tobacco use: N onsmoker A HELENA-C (Standard) Did you have a drink containing alcohol in the past year? N o Points 0 Interpretation N egative * Medications: T akingXOLAIR 150 mg powder for injection 300 mg subcutaneously every 4 weeks SIT (Traditional) variable - see record variable - see record per schedule subcutaneous per schedule Albuterol Sulfate 108 (90 Base) MCG/ACT Aerosol Powder Breath Activated 2 puff as needed Inhalation every 4 hrs metFORMIN HCl 500 MG Tablet 1 tablet with a meal Orally Once a day traMADol HCl ER 200 MG Tablet Extended Release 24 Hour 1 tablet Orally Once a day Voltaren 1 % Gel as directed Externally [...] tab(s) orally up to TID PRN , Notes to Pharmacist: PRNCoQ-10 100 MG Capsule 1 cap(s) orally once [...] see record per schedule subcutaneous per schedule Albuterol Sulfate HFA 108 (90 Base) MCG/ACT Aerosol Solution 1 puff as needed Inhalation every 4 hrs Breo Ellipta 100-25 MCG/ACT Aerosol Powder Breath Activated 1 puff Inhalation Once a day Azelastine HCl 137 MCG/SPRAY Solution SPRAYS 2 SPRAYS INTO EACH NOSTRIL TWICE DAILY Montelukast Sodium 10 MG Tablet TAKE 1 TABLET BY MOUTH EVERY DAY Taking XOLAIR 150 mg powder for injection 300 mg subcutaneously every 4 weeks Taking SIT (Traditional) variable - see record variable - see record per schedule subcutaneous per schedule Taking Albuterol Sulfate 108 (90 Base) MCG/ACT Aerosol Powder Breath Activated 2 puff as needed Inhalation every 4 hrs Taking metFORMIN HCl 500 MG Tablet 1 tablet with a meal Orally Once a day Taking traMADol HCl ER 200 MG Tablet Extended Release 24 Hour 1 tablet Orally Once a day Taking Voltaren 1 % Gel as directed [...] *Please review and pick correct strength-formulation from [facility] [place] options. If intended option is not shown, [...] *Please review and pick correct strength-formulation from [facility] [place] options. If intended option is not shown, discontinue and re-order from Quick Search*Taking cloNIDine HCl 0.1 MG Tablet 1 tab(s) orally up to TID PRN , Notes to Pharmacist: PRNTaking CoQ-10 100 MG Capsule 1 cap(s) orally [...] record per schedule subcutaneous per schedule Taking Albuterol Sulfate HFA 108 (90 Base) MCG/ACT Aerosol Solution 1 puff as needed Inhalation every 4 hrs Taking Breo Ellipta 100-25 MCG/ACT Aerosol Powder Breath Activated 1 puff Inhalation Once a day Taking Azelastine HCl 137 MCG/SPRAY Solution SPRAYS 2 SPRAYS INTO EACH NOSTRIL TWICE DAILY Taking Montelukast Sodium 10 MG Tablet TAKE 1 TABLET BY MOUTH EVERY DAY Not-Taking/PRNBREO ELLIPTA 100 mcg-25 mcg/inh powder 1 puff(s) inhaled once a day Tylenol 325 MG Tablet 1 tablet as needed Orally every 6 hrs AUVI-Q 0.3 mg kit as directed intramuscularly once PROAIR HFA CFC free 90 mcg/inh aerosol 2 puff(s) inhaled 4 times a day Tamoxifen Citrate 20 MG Tablet 1 tablet [...] *Please review and pick correct strength-formulation from [facility] [place] options. If intended option is not shown, discontinue and re-order from Quick Search*BONIVA 150 MG TABLET 1 TAB(S) ORALLY ONCE A MONTH , Notes to Pharmacist: *Please review for potential replacement for e-prescription and drug interaction check*Trelegy Ellipta 100 MCG-62.5 MCG-25 MCG/INH POWDER 1 PUFF(S) INHALED ONCE A DAY , Notes to Pharmacist: *Please review and pick correct strength-formulation from [facility] [place] options. If intended option is not shown, discontinue and re-order from Quick Search*predniSONE 20 MG Tablet 3 tabs orally Patient to call MD for frequency Albuterol Sulfate (2.5 MG/3ML) 0.083% Nebulization Solution 3 ml by nebulizer every 6 hours traMADol HCl ER 100 MG Tablet Extended Release 24 Hour 1 tab(s) orally once a day Medication List reviewed and reconciled with the patientNot-Taking/PRN BREO ELLIPTA 100 mcg-25 mcg/inh powder 1 puff(s) inhaled once a day Not-Taking/PRN Tylenol 325 MG Tablet 1 tablet as needed Orally every 6 hrs Not-Taking/PRN AUVI-Q 0.3 mg kit as directed intramuscularly once Not-Taking/PRN PROAIR HFA CFC free 90 mcg/inh aerosol 2 puff(s) inhaled 4 times a day Not-Taking/PRN Tamoxifen Citrate 20 MG Tablet 1 tablet Orally Once a day Not-Taking/PRN OLOPATADINE NASAL 665 MCG/INH SPRAY 2 SPRAY(S) INTRANASALLY 2 TIMES A DAY , Notes to Pharmacist: *Please review for potential replacement for e-prescription and drug interaction check*Not- Taking/PRN EpiPen 2-Jade 0.3 MG/0.3ML Solution Auto-injector 0.3 [...] *Please review and pick correct strength-formulation from [email or web address] options. If intended option is not shown, discontinue and re-order from Quick Search*Not-Taking/PRN BONIVA 150 MG TABLET 1 TAB(S) ORALLY ONCE A MONTH , Notes to Pharmacist: *Please review for potential replacement for e-prescription and drug interaction check*Not-Taking/PRN Trelegy Ellipta 100 MCG-62.5 MCG-25 MCG/INH POWDER 1 PUFF(S) INHALED ONCE A DAY , Notes to Pharmacist: *Please review and pick correct strength-formulation from [facility] [place] options. If intended option is not shown, discontinue and re-order from Quick Search*Not-Taking/PRN predniSONE 20 MG Tablet 3 tabs orally Patient to call MD for frequency Not-Taking/PRN Albuterol Sulfate (2.5 MG/3ML) 0.083% Nebulization Solution 3 ml by nebulizer every 6 hours Not-Taking/PRN traMADol HCl ER 100 MG Tablet Extended Release 24 Hour 1 tab(s) orally once a day Medication List reviewed and reconciled with the patient * Allergies: B actrim: hives - AllergyAspirin: hives - AllergySULFA: hivesno[Allergies Verified] Objective: * Vitals: B P:126/81mm Hg, HR:70/min, Pulse Oximetry:98%, ACT:19, Ht: 64 in, Wt: 250.8 lbs, BMI:43.05Index. * Examination: G eneral examination: General appearance: p leasant, well-developed, well-nourished, female, in no apparent distress, speaking in full sentences. HEENT: c onjunctiva are normal bilaterally, patient wearing face covering. Oral cavity: n ormal, no lesions. Breasts : n ot performed. Heart: R RR, S1-S2, no murmurs, no rubs, no gallops. Lungs: c lear to auscultation in all lung lin, no wheezes or crackles. Neurologic exam: u nremarkable. Skin: normal, no rash, dermatographism, angioedema. Back: n ormal. Extremities: n ormal ROM, [...] edema, subsequent encounter - T78.3XXD 9 . Elevated blood-pressure reading, without diagnosis of hypertension - R03.0 Plan: * Treatment: 2. A llergic rhinitis due to animal (cat) (dog) hair and dander Notes:Continue avoidance, meds and SCIT per schedule. Increase frequency PRN 3. O ther allergic rhinitis Notes:Continue avoidance, meds and SCIT per schedule. Increase frequency PRN 4. O ther chronic allergic conjunctivitis Notes:Given ocular signs and symptoms, I encouraged allergy avoidance measures and meds as above. If symptoms persist, consider adding additional medications including intraocular antihistamine/mast cell stabilizer, PRN and continue SCIT as an adjunctive measure 5. S evere persistent asthma, uncomplicated Continue XOLAIR powder for injection, 150 mg, 300 mg, subcutaneously, every 4 weeks; C ontinue ALBUTEROL SULFATE solution, 2.5 mg/3 mL (0.083%), 3 ml, by nebulizer, every 6 hours, 30 days, 30, Refills 0; C ontinue Albuterol Sulfate Aerosol Powder Breath Activated, 108 (90 Base) MCG/ACT, 2 puff as needed Inhalation every 4 hrs, 30 days, 1, Refills 0; C ontinue Breo Ellipta Aerosol Powder Breath Activated, 100-25 MCG/ACT, 1 puff, Inhalation, Once a day, 90 days, 3, Refills 0; R efill Montelukast Sodium Tablet, 10 MG, 1 tablet, Orally, Once a day, at night, 90 days, 90, Refills 0. Notes: Sonia continues to report [...] for in office evaluation every 3 months. Injection log uploaded. - Will continue with at home dosing log. -We elected to trial Trelegy previously with 10% improvement. That said, it is too expensive and is back to using Breo of which she ishappy with current control. . - No interval antibiotics or steroids. - [...] in office, which we again discussed today 6. O ther diseases of vocal cords [...] in PM, highly consider updated GI evaluation 8. A ngioneurotic edema, subsequent encounter Notes: [...] issues. AIE on patient at all times * Procedure Codes: G 8427 DOC MEDS VERIFIED W/PT OR [id number] PT-FOCUSED HLTH RISK ASSMT * Preventive Medicine: Counseling: M edication instruction: [...] education, guidance, and counseling B P Management: BP Reassessment Plan: F ollow-up 1 month LIFESTYLE RECOMMENDATION: H ypertension education REFERRAL TO ALTERNATIVE / PRIMARY CARE PROVIDER: Negar ellis to general physician * Follow Up: a s scheduled, 3 Months (Reason: SCIT, Evaluation and Management) * Billing Information: * Visit Code: 37899 Office Visit, Est Pt., Level 4. Modifiers: 25 * Procedure Codes: G8427 DOC MEDS VERIFIED W/[place]. [address] PT-FOCUSED HLTH RISK ASSMT. * STRENGTH INSPECTOR Sign off status: Completed true * Provider: PARESH Bruner-C Date: 04/16/2024 Generated for Printi ng/Faxing/eTransmitting on: 04/17/2024 02:46 PM ACID STRENGTH INSPECTOR History and Physical Notes * HPI (History of Present Illness) Category Sub-Category Detail Notes Category Not es *Introduction HPI: Sonia Cobb, a 64-year-old female with GERD, VCD, ARC and persistent asthma who returns for interval evaluation and management. Sonia was previously followed by LIYA Vuong. She is alone for today's visit. Sonia returns today reporting a URI, however overall she is doing well. She was seen by her PCP earlier, started on a z-pack. She continues on reformulated vials, which she feels has been beneficial. No issues reported with SCIT dosing. Her day-to-day allergy symptoms have seemed to be improving. Sonia continues doing her Xolair injections at [...] bumped to to Trelegy previously but continues Breo due to cost. Despire current illness, no reports of lower airway symptoms. Steroids historically worsens her reflux leading to laryngospasms. Sonia has also seen speech therapy in the past for VCD. She is currently taking Nexium 40 mg AM and 20mg PM and believes her GERD is well controlled. Today, she reports no fevers, chills, night sweats or other constitutional symptoms Examination Category Sub-Category Detail Notes Category Not es General examination HEENT: conjunctiva are normal bilaterally, patient wearing face covering Heart: RRR, S1-S2, no murmu rs, no rubs, no gallops Lungs: clear to auscultatio n in all lung lin, no wheezes or crackles Extremities: normal ROM, no clubb ing, no cyanosis, no edema General appearance: pleasant, well-devel oped, well-nourished, female, in no apparent distress, speaking in full sentences Skin: normal, no rash, [place] matographism, angioedema Neurologic exam: unremarkable Oral cavity: normal, no lesions Breasts : not performed Back: normal Genitalia: not performed
--- OUTSIDE RECORDS SUMMARY | 2025-02-13 10:20 | XMS_ITS | Encounter Summary ---
Author Organization [facility] Address [address] [place] [address] Care Team Providers Care Engine Test Cell Technician Name Role Phone Iker Haynes DO Primary Care Provider + Reason for Visit * Reason Comments URI Sx started on 2024. The patient reports taking mucinex, albuterol, and hydrating. The patient is having yellow mucus production. The patient states covid test was neg. Diabetes Patient presents for routine 3 month follow up Encounter Details Date Type Department Care Team (Late st Contact Info) Description 02/13/2025 10:20 AM VIRTUAL RECRUITER Office Visit [facility] Family & Internal Medicine [address] [phone] Iker Haynes DO [address] [place] [address] [phone] URI (Sx started on 02/06/2025. The patient reports taking mucinex, albuterol, and hydrating. The patient is having yellow mucus production. The patient states covid test was neg. ); Diabetes (Patient presents for routine 3 month follow up ) Social History Tobacco Use Types Packs/Day Years [...] fi le documented as of this encounter Last Filed Vital Signs Vital Sign Reading Time Taken Comments Blood Pressure 122/76 02/13/2025 10:25 AM VIRTUAL RECRUITER Pulse 81 02/13/2025 10:25 AM VIRTUAL RECRUITER Temperature 37.1 C (98.7 F) 02/13/2025 10:25 AM VIRTUAL RECRUITER Respiratory Rate 18 02/13/2025 10:2 5 AM VIRTUAL RECRUITER Oxygen Saturation 97% 02/13/2025 10: 25 AM VIRTUAL RECRUITER Inhaled Oxygen Concentration - - Weight 112.6 kg (248 lb 3.2 oz) 025 10:25 AM VIRTUAL RECRUITER Height 165.1 cm (5' 5) 02/13/2025 10:2 5 AM VIRTUAL RECRUITER Body Mass Index 41.3 02/13/2025 10:25 AM VIRTUAL RECRUITER documented in this encounter Progress Notes * Iker Haynes, DO - 02/13/2025 10:20 AM CST Images from the original note were not included. GENERAL OFFICE VISIT Encounter Date: 02/13/2025 Chief Complaint: 64-year-old female presents for URI (Sx started on 02/06/2025. The patient reports taking mucinex, albuterol, and hydrating. The patient is having yellow mucus production. The patient states covid test was neg. ) and Diabetes (Patient presents for routine 3 month follow up ) HPI: Patient states symptoms have been present for 7 days. Symptoms include productive cough after usingalbuterol and myalgias. Pertinent negatives include Fevers, Chills, and Rash. Patient has no sick contacts. OTC medications tried include Mucinex. Pt did an at home COVID test that was negative. Patient has Type 2 Diabetes. Patient has had diabetes for less than 1 year. Medications include metformin. BS logs range: stable. Patient's eye exam is scheduled for November. Patient's weight has gone down 2 lbs. Current symptoms include none. HGB A1C Date Value Ref Range Status 02/13/2025 6.4 % Final 11/07/2024 6.4 % Final 07/16/2024 6.7 (H) 4.8 - 5.6 % Final Comment: Prediabetes: 5.7 - 6.4 Diabetes: >6.4 Glycemic control for adults with diabetes: <7.0 10/01/2023 5.8 % Final Patient presents for follow-up on essential hypertension. Patient has had hypertension for multipleyears. Current medications include spironolactone, diltiazem, and clonidine. Patient's blood pressure is well controlled at this time. No side effects noted from medications. Concurrent conditions include Hyperlipidemia. Pt's liver enzymes improved on our testing but increased with Dr. Richard. They held her tramadol and will be rechecking again in near future. Review of Systems Constitutional: Negative for fever. Respiratory: Negative for shortness of breath. Cardiovascular: Negative for chest pain. Gastrointestinal: See HPI Musculoskeletal: See HPI Patient Active Problem List Diagnosis Afib ([facility]) Dyslipidemia Hypertension associated with type 2 diabetes mellitus ([facility]) Obstructive sleep apnea Other diseases of vocal cords Hypothyroidism, unspecified type Uncomplicated asthma, unspecified asthma severity, unspecified whether persistent (HHS/HCC) Spinal stenosis Allergies Anterolisthesis DDD (degenerative disc disease), lumbar Spinal stenosis of lumbar region at multiple levels BMI 40.0-44.9, adult ([facility]) Elevated transaminase level Osteoporosis Pure hypercholesterolemia Macular degeneration Atypical ductal hyperplasia of left breast Allergic rhinitis Nonexudative age-related macular degeneration Elevated liver enzymes Hyperlipidemia associated with type 2 diabetes mellitus ([facility] HHS/HCC) Past Medical History[1] Past Surgical History[2] Family History[3] Social History[4] Immunization History Administered Date(s) Administered Abrysvo Respiratory Syncytial Virus (RSV) 0.5 mL, PF 11/22/2022 Afluria 36 MONTHS+ (Prefilled Syringe IIV4) 10/28/2018 Fluarix 11/20/2014 Flucelvax 2 YRS+ (Multi-Dose Vial) 01/25/2019 Fluzone High Dose (IIV, trivalent, 0.5mL) 10/29/2024 Fluzone Quad 3 Yrs+ (5.0 mL Multi Dose Vial) 11/12/2019 Hib 06/07/2015 Hib (Prohibit) 06/07/2015 Influenza (Generic) 10/24/2013, 10/30/2014, 11/20/2014, 11/27/2015, 10/27/2016, 10/31/2017, 10/28/2018, 11/17/2020, 11/14/2021, 11/21/2023 Influenza Adult (Generic) 12/11/2012, 11/05/2013, 10/30/2014, 11/27/2015, 11/30/2015, 10/27/2016, 10/31/2016, 10/30/2017, 01/25/2019, 11/12/2019, 11/17/2020, 11/09/2021, 11/22/2022 MODERNA COVID-19 BIVALENT (12+), MRNA, LNP-S, PF 11/09/2021 MODERNA COVID-19 (12+) MRNA, LNP-S, PF, 100 MCG/ 0.5 ML DOSE 03/21/2020, 04/20/2020, 11/28/2020 MODERNA COVID-19 (WASTEWATER SUPERVISOR BOOSTER), MRNA, LNP-S, PF, 50 MCG/ 0.25 ML DOSE 06/08/2021 PFIZER COVID-19 (12+) MRNA, LNP-S, PF, GRZEGORZ-SUCROSE, 30 MCG/0.3 ML (COMIRNATY) 11/22/2022, 11/21/2023, 05/26/2024, 10/29/2024 Pneumococcal (Pneumovax 23) 02/13/2014, 01/18/2020 Pneumococcal (Prevnar 13) 12/31/2014 Shingrix 01/20/2020, 05/25/2020 Current Outpatient Medications Medication Sig Dispense Refill albuterol (PROVENTIL) (2.5 MG/3ML) 0.083% nebulizer solution Inhale the contents of 1 vial per nebulizer every 6 hours. albuterol sulfate HFA 108 (90 Base) MCG/ACT inhaler alendronate (FOSAMAX) 70 MG tablet Take 1 tablet (70 mg total) by mouth every 7 days. AZELASTINE 137 MCG/SPRAY nasal spray SPRAYS 2 SPRAYS INTO EACH NOSTRIL TWICE DAILY for 25 azithromycin (ZITHROMAX) 250 MG tablet Take 2 tabs daily for one day, then take 1 tab daily 6 tablet 0 calcium carbonate (SUPER CALCIUM) 1500 (600 Ca) MG tablet every 12 (twelve) hours. cetirizine 10 MG tablet Take 1 tablet (10 mg total) by mouth daily. Cholecalciferol 50 MCG (2000 UT) Cap 2,000 Units daily. cloNIDine 0.1 MG tablet Take 1 tablet (0.1 mg total) by mouth daily. Coenzyme Q10 10 MG capsule 200 mg daily. Cyanocobalamin (VITAMIN B12) 1000 MCG Tab CR daily. diclofenac sodium (VOLTAREN) 1 % gel Apply 2 g topically 2 (two) times daily. dilTIAZem CD (CARDIZEM CD) 240 MG 24 hr capsule Take 1 capsule (240 mg total) by mouth daily. EPINEPHrine 0.15 MG/0.3ML injection Inject 0.3 mLs (0.15 mg total) into the muscle. esomeprazole 40 MG capsule 1 capsule (40 mg total) 2 (two) times daily. fish oil (OMEGA-3 FATTY ACID) 1000 MG Cap capsule 4 capsules (4,000 mg total) daily. fluticasone furoate-vilanterol (BREO ELLIPTA) 100-25 MCG/ACT inhaler Inhale 1 puff into the lungs daily. folic acid (FOLVITE) 1 MG tablet Take 2 tablets (2 mg total) by mouth daily. levothyroxine (SYNTHROID) 137 MCG tablet TAKE 1 TABLET BY MOUTH EVERY MORNING. 90 tablet 0 magnesium oxide (MAG-OX) 400 MG tablet 1 tablet (400 mg total) daily. metFORMIN ER (GLUCOPHAGE-XR) 500 MG 24 hr tablet TAKE 1 TABLET BY MOUTH EVERY DAY WITH BREAKFAST 90tablet 0 methocarbamol (ROBAXIN) 500 MG tablet TAKE 1 TABLET 3 TIMES A DAYAS NEEDED 90 tablet 0 montelukast 10 MG tablet Take 1 tablet (10 mg total) by mouth daily. Multiple Vitamin (DAILY VITES) Tab Take 1 tablet by mouth daily. omalizumab 150 MG injection 1.2 mLs (150 mg total) once. Every 4 weeks rosuvastatin (CRESTOR) 5 MG tablet Take 1 tablet (5 mg total) by mouth daily. spironolactone 50 MG tablet Take 1 tablet (50 mg total) by mouth daily. triamcinolone acetonide 55 MCG/ACT nasal inhaler 2 sprays by Each Nostril route daily. vitamin C (ASCORBIC ACID) 500 MG tablet daily. No current facility-administered medications for this visit. Review of patient's allergies indicates: Allergen Reactions Aspirin Anaphylaxis, Hives and Swelling hives Sulfa Antibiotics Hives and Unknown Fenofibrate Rash rash Pravastatin Myalgias myalgias Simvastatin Myalgias myalgias Sulfamethoxazole-Trimethoprim Hives Objective: Filed Vitals: 02/13/25 1025 BP: 122/76 Pulse: 81 Resp: 18 Temp: 98.7 ??F (37.1 ??C) TempSrc: Skin SpO2: 97% Weight: 112.6 kg (248 lb 3.2 oz) Height: 1.651 m (5' 5) Physical Exam Vitals and nursing note reviewed. HENT: Head: Normocephalic and atraumatic. Right Ear: Tympanic membrane, ear canal and external ear normal. Left Ear: Tympanic membrane, ear canal and external ear normal. Mouth/Throat: Pharynx: No oropharyngeal exudate. Eyes: Conjunctiva/sclera: Conjunctivae normal. Cardiovascular: Rate and Rhythm: Normal rate and regular rhythm. Heart sounds: Normal heart sounds. No murmur heard. No friction rub. No gallop. Pulmonary: Effort: Pulmonary effort is normal. No respiratory distress. Breath sounds: Normal breath sounds. No wheezing or rales. Abdominal: Palpations: Abdomen is soft. Tenderness: There is no abdominal tenderness. Neurological: Mental Status: She is alert. Comments: Using walker Assessment & Plan: Sonia was seen today for uri and diabetes. Diagnoses and all orders for this visit: Type 2 diabetes mellitus with other circulatory complication, without long-term current use of insulin ([facility]) - HEMOGLOBIN, GLYCOSYLATED - COLLECT.CAPILLARY (FNGR,HEEL,EAR) Acute non-recurrent sinusitis, unspecified location - azithromycin (ZITHROMAX) 250 MG tablet; Take 2 tabs daily for one day, then take 1 tab daily Discussion/Summary: Will continue current meds for chronic T2DM and HTN; stable today. Will treat infection as per above; discussed side effects. F/u with all specialists as recommended. Will have pt f/u in 6 months or sooner if needed. Pt v/u. Iker Haynes DO [1] Past Medical History: Diagnosis Date Arthritis 1996 Asthma ([facility]) 1998 Cataract 2020 removed Winter 2021 Diabetes mellitus ([facility]) 2024 Disease of thyroid gland 1997 DVT (deep venous thrombosis) ([facility]) GERD (gastroesophageal reflux disease) 1992 Hyperlipidemia Hypertension 2001 Inappropriate sinus tachycardia ([facility]) 03/23/2019 Laryngospasms Osteopenia Osteoporosis PSVT (paroxysmal supraventricular tachycardia) ([facility]) 09/27/2019 Pulmonary embolism ([facility]) Sleep apnea Spinal stenosis Supraventricular tachycardia ([facility]) [2] Past Surgical History: Procedure Laterality Date ARTHROSCOPY, KNEE, SURGICAL left CARPAL TUNNEL RELEASE Bilateral SECTION 1987 CHOLECYSTECTOMY 2014 COLONOSCOPY 07/11/2020 EPIDURAL BLOCK 01/04/2020 lower back EYE SURGERY cataracts removed winter 2021 FRACTURE SURGERY 1995 left arm HC US GUIDANCE TISSUE ABLATION LOW BACK RADIOFREQUENCY ABLATION NERVES 12/03/2020 SINUS SURGERY [3] Family History Problem Relation Name Age of Onset Hyperlipidemia Mother Tawanna Hypertension Mother Tawanna Heart Disease Mother Tawanna Heart Mother Tawanna Heart Attack Mother Tawanna Pacemaker Osteoporosis Mother Tawanna Alcohol Abuse Mother Tawanna Sober since 1981 Arthritis Mother Tawanna Cancer Mother Tawanna Vision loss Mother Tawanna Macular Degeneration Heart Disease Father Navin Hypertension Father Navin Hyperlipidemia Father Navin Asthma Father Navin Cancer Father Navin Prostate Arthritis Father Navin Hypertension Sister Rach Hyperlipidemia Sister Rach Asthma Sister Rach Arthritis Sister Rach Alcohol Abuse Sister Yumiko [place] Sober since 1981 Arthritis Sister [place]umiko [place] Arthritis Sister Peggy Antonio Stroke Maternal Grandmother Ivette Arthritis Sister Peggy Hypertension Sister Peggy Arthritis Sister Yumiko Hypertension Sister Yumiko [4] Social History Tobacco Use Smoking status: Never Passive exposure: Never Smokeless tobacco: Never Vaping Use Vaping status: Never Used Substance Use Topics Alcohol use: Never Drug use: Never UAL RECRUITER documented in this encounter Plan of Treatment Upcoming Encounters Date Type Department Care Team (Late st Contact Info) Description 08/10/2025 1:00 PM CDT Office Visit [facility] Family & Internal Medicine [address] [phone] [place] [address] [place] [phone] documented as of this encounter Procedures Procedure Name Priority Date/Time Associated Diagnosis Comments COLLECT.CAPILLARY (FNGR,HEEL,EAR) Routine 02/13/2025 10:15 AM VIRTUAL RECRUITER Type 2 diabetes mellitus with other circulatory complication, without long-term current use of insulin ([facility]) HEMOGLOBIN, GLYCOSYLATED Routine 02/13/2025 Type 2 diabetes mellitus with other circulatory complication, without long-term current use of insulin ([facility]) documented in this encounter Results * HEMOGLOBIN, GLYCOSYLATED (02/13/2025) HGB A1C 6.4 % [facility] BLOOD VENOUS BLOOD SPECIMEN / Unknown 02/13/2025 us Iker Haynes DO LABORATORY Final Re sult [facility] [address] [place] [address], documented in this encounter Visit Diagnoses Diagnosis Type 2 diabetes mellitus with other circulatory complication, without long-term current use of insulin ([facility])- Primary Acute non-recurrent sinusitis, unspecified location Hypertension associated with type 2 diabetes mellitus ([facility]) documented in this encounter Additional Health Concerns Assessment Noted Time PHQ-9 Depression Total Score: 0 04/11/19 20 1:04 PM VIRTUAL RECRUITER documented as of this encounter Care Teams Engine Test Cell Technician Relationship Specialty Start Date End Date Iker Haynes DO [address] [place] [id number] PCP - General FAMILY PRACTICE 03/10/19 documented as of this encounter
--- NOTE | ~2025-02-14 | DEXA_ITS ---
Bone Density Report Name: BLAKE COBB Age: 64 Sex: Female Ethnicity: White Date of : 1960 Indication: monitoring treatment; height loss; asthma or emphysema; Referring Provider: EDGARD CONTRERAS Study: Bone densitometry was performed. Exam Date: February 14, 2025 Accession number: [id number] Bone Density: Region BMD T-score Z-score Classification AP Spine(L1-L4) 1.369 2.9 4.7 Normal Femoral Neck (Left) 0.555 -2.7 -1.1 Osteoporosis Total Hip (Left) 1.059 1.0 2.2 Normal Femoral Neck (Right) 0.708 -1.3 0.3 Osteopenia Total Hip (Right) 1.020 0.6 1.9 Normal Total Hip Mean 1.040 0.8 2.1 Normal World Health Organization criteria for BMD impression classify patients as: Normal (T-score at or above -1.0), Osteopenia (T-score between -1.0 and -2.5), or Osteoporosis (T-score at or below -2.5). 10-year Fracture Risk: FRAX not reported because: Some T-score for Spine Total or Hip Total or Femoral Neck at or below -2.5 Treated for osteoporosis Previous Exams: Region Exam Age BMD T-score BMD Change BMD Change Date g/cm2 vs Baseline vs Previous AP Spine (L1-L4) 02/14/2025 64 1.369 2.9 0.249 (22.2%)* 0.144 (11.7%)# 11/22/2022 62 1.226 1.6 0.105 (9.4%)# 0.130 (11.8%)# 06/23/2020 60 1.096 0.4 -0.024 (-2.2%) 0.024 (2.2%)* 05/01/2018 58 1.072 0.2 -0.048 (-4.3%) -0.048 (-4.3%) 04/01/2014 53 1.120 0.7 Total Hip(Left) 02/14/2025 64 1.059 1.0 0.085 (8.8%)* 0.095 (9.9%)# 11/22/2022 62 0.964 0.2 -0.010 (-1.0%) 0.034 (3.7%)# 06/23/2020 60 0.930 -0.1 -0.044 (-4.5%) -0.132 (-12.4% 05/01/2018 58 1.062 1.0 0.088 (9.0%)* 0.088 (9.0%)* 04/01/2014 53 0.974 0.3 Total Hip(Right) 02/14/2025 64 1.020 0.6 -0.006 (-0.6%) -0.041 (-3.9%) 11/22/2022 62 1.061 1.0 0.035 (3.4%)# 0.031 (3.0%)# 06/23/2020 60 1.030 0.7 0.004 (0.4%) -0.059 (-5.4%) 05/01/2018 58 1.089 1.2 0.063 (6.2%)* 0.063 (6.2%)* 04/01/2014 53 1.026 0.7 *Denotes significance at 95% confidence level, LSC for AP Spine = 0.022 g/cm2, LSC for Total Hip = 0.027 g/cm2 # Denotes dissimilar scan types or analysis methods Clinical Information Provided by Patient: Is being treated for osteoporosis Has used the following medications: Boniva (i.e. ibandronate), Fosamax (i.e. alendronate), Vitamin D, Calcium Has the following medical conditions: Asthma or Emphysema Patient maximum height was 65 Menopause Age: 53 Does not regularly consume dairy products Onset of menses at age 10 Number of children 1 Impression: The patient has osteoporosis, based on the Left Femoral Neck T-score. No significant bone loss was observed. Discussion: PATIENT UNDER TREATMENT WITH NO SIGNIFICANT BMD LOSS SINCE LAST EXAM. In an untreated patient, BMD typically declines with age. A lack of decline or gain is usually a sign that treatment is efficacious and fracture risk is reduced. It is important to ask patients whether they are taking their medications and to encourage continued and appropriate compliance with their osteoporosis therapies to reduce fracture risk. It is also important to review their risk factors and encourage appropriate calcium and vitamin D intakes, exercise, fall prevention and other lifestyle measures. Follow-Up: Consider a repeat BMD and Vertebral Fracture Assessment (VFA) exam in 2 years or sooner if medically necessary, to reassess this patient's status. Reported by: LIAM on 02/14/2025 3:24:00 PM. Reviewed, dictated and finalized at location A.
--- OUTSIDE RECORDS SUMMARY | 2025-02-14 14:46 | XMS_ITS | Clinical Summary ---
Author Organization [facility] Address [address] [place] [address] Care Team Providers Care Foam Caster Name Role Phone Iker Haynes Primary Care [...] (0.3 mg total) as needed Active omega 3-nkh-cpn-fish oil 1,000 mg (120 mg-180 mg) capsule [...] of on CPAP, managed by Dr. Inman Encounters Date Type Department Care Team Description 12/16/2024 2:32 PM CDT - 12/16/2024 11:59 PM CDT Hospital Encounter [facility] Diabetes Educ [address] [place] [id number] Type 2 diabetes mellitus with other circulatory complication, without long-term current use of insulin Discharge Disposition: Discharge to home or self care from Last 3 Months Family History Medical History Relation Name Comments [...] of Binge Drinking Not on file 08/23 Comments Unknown Sex and Gender Information Value Date Recorded Sex Assigned at Not on file Legal Sex Female 6:57 AM SUPERVISOR SPECIAL SERVICES Gender Identity Female 03/16/2019 6:40 AM SUPERVISOR SPECIAL SERVICES Sexual Orientation Not on file Last Filed Vital Signs Vital Sign Reading Time Taken Comments Blood Pressure 110/70 12/22/2022 3:45 PM CDT Pulse 83 12/22/2022 3:45 PM CDT Temperature 36.8 C (98.2 F) 01/05/2015 4:06 PM SUPERVISOR SPECIAL SERVICES Respiratory Rate - - Oxygen Saturation 97% [...] A1C 02/13/2014 08/14/2013 Well Visit 65+ 2024 eGFR 05/01/2024 05/02/2023, 1203/2022, 11/22/2022, Additional history exists Covid-19 Vaccine (5 - 2024-2 6 season) 2024 06/08/2021, 11/28/2020, 04/20/2020, Additional history exists Pneumococcal vaccine 65+ (3 of 3 - PCV20 or PCV21) 01/17/2025 01/18/2020, 12/31/2014, 02/23/2014, Additional history exists Lipid Panel 07/16/2025 07/16/2024, 03/0 10/2023, 11/22/2022, Additional history exists Hepatitis C Screening Completed 03/05/2019, 019 Zoster Vaccine Completed 05/25/2020, 01/20/2020 Influenza Vaccine Completed 10/29/2024, , 11/22/2022, Additional history exists Procedures Procedure Name Priority Date/Time Associated Diagnosis Comments COMPREHENSIVE METABOLIC PANEL Routine 05/02/2023 10:14 AM SUPERVISOR [employer] SERVICES Primary hypertension LIPID PANEL Routine 05/02/2023 10:14 AM SUPERVISOR [employer] SERVICES Mixed hyperlipidemia HEPATITIS PANEL, ACUTE Routine 03/05/2019 10:11 AM SUPERVISOR [employer] SERVICES Elevated transaminase level HEMOGLOBIN A1C Routine 08/14/2013 5:28 AM CDT from Last 3 Months or Most Recently Relevant to Health Maintenance Results * (ABNORMAL) Lipid panel (05/02/2023 10:14 AM SUPERVISOR SPECIAL SERVICES) [facility] Cholesterol 149 100 - 199 mg/dL [facility] - 01 Triglycerides 220(H) 0 - 149 mg/dL [facility] - 01 HDL Cholesterol 32(L) >39 mg/dL [facility] - 01 VLDL 37 5 - 40 mg/dL [facility] - 01 LDL, calculated 80 0 - 99 mg/dL [facility] - 01 Blood 05/02/2023 10:1 4 AM SUPERVISOR SPECIAL SERVICES 05/02/2023 Narrative [facility] - 05/03/2023 8:07 AM CDT Performed at: [address] [place] [id number] Watershed Tender: Graham Goncalves PhD, Phone: [phone] us Tre Richard MD LAB BLOOD ORDERABLES Final R esult [facility] - 01 * (ABNORMAL) Comprehensive metabolic panel (05/02/2023 10:14 AM SUPERVISOR SPECIAL SERVICES) [facility] Glucose 105(H) 70 - 99 mg/dL [facility] [...] - 01 Blood 05/02/2023 10:1 4 AM SUPERVISOR SPECIAL SERVICES 05/02/2023 Narrative [facility] - 05/03/2023 8:07 AM CDT Performed at: 01 - [facility] [id number] Watershed Tender: Graham Goncalves PhD, Phone: [phone] Tre Richard MD LAB BLOOD ORDERABLES Final R esult [facility] - 01 * Hepatitis panel, acute (03/05/2019 10:11 AM SUPERVISOR [employer] SERVICES) Hep A IgM Negative Negative [facility] - [...] with a HCV Nucleic Acid Amplification test ([id number]). Blood specimen (specimen) 03/05/2019 10:11 AM SUPERVISOR SPECIAL SERVICES 03/05/2019 Narrative [facility] - 03/06/2019 1:06 PM SUPERVISOR [employer] SERVICES Performed at: [address] [place] [address] Watershed Tender: Graham Goncalves PhD, Phone: [phone] Tre Richard MD LAB MICROBIOLOGY - GENERAL O RDERABLES Final Result Performing Organization Address [facility] Co de Phone Number [facility] - 01 * Hemoglobin A1c (08/14/2013 5:28 AM CDT) Hemoglobin A1c % 5.5 4.8 - 5.9 % Comment: As of 2009 Method: LOGAN Sandhya 6000 using turbidometric inhibition immunoassay procedure. Results obtained are comparable to results obtained using previous methodology (HPLC). [place] [employer] recommends that the goal of therapy should be an A1C hemoglobin of <7%. Reevaluate the treatment regimen in patients with an A1C >8%. 08/14/2013 5:28 AM CDT 08/14/2013 5:47 AM CDT Marco Antonio Bond MD LAB BLOOD ORDERABLES Final R esult [facility] HISTORICAL RESULTS from Last 3 Months or Most Recently Relevant to Health Maintenance Insurance Advance Directives For more information, please contact: [phone] Documents on File Type Date Recorded Patient Fruit Room Hand Expl anation ADVANCE DIRECTIVE 02/03/2011 12:00 AM GAVINO ING WILL ADVANCE DIRECTIVE 02/03/2011 12:00 AM POW ER OF CORRECTIONAL THERAPY TEACHER FINANCIAL/MEDICAL Care Teams Foam Caster Relationship Specialty Start Date End Date Iker Haynes DO PCP - General Family Medicine 03/23/19
--- OUTSIDE RECORDS SUMMARY | 2025-02-14 14:46 | XMS_ITS | Clinical Summary ---
Author Organization [facility] Address [address] [facility] [address] Care Team Providers Care Solar Applications Development Engineer Name Role Phone Iker Haynes DO Primary Care Provider + Allergies Active Allergy Reactions Criticality Noted Date Comments Aspirin Anaphylaxis High 07/31/2022 Sulfa (Sulfonamide Antibiotics) Hives High 09/2022 Medications levothyroxine 112 mcg tablet TAKE 1 TABLET BY MOUTH EVERY MORNING 90 Tablet 1 02/18/2023 11:21 AM DUST COLLECTOR ATTENDANT 10/18/19 Active montelukast (SINGULAIR) 10 mg tablet [...] hours. 90 mL 1 02/18/2023 11:21 AM DUST COLLECTOR ATTENDANT 02/19/20 23 Active methocarbamoL (ROBAXIN) 500 mg tablet Take 1 Tablet (500 mg) by mouth 3 times daily as needed. 90 Tablet 02/18/2023 11:21 AM DUST COLLECTOR ATTENDANT 02/19/20 Active alendronate (FOSAMAX) 70 mg tablet Take [...] Encounters Date Type Department Care Team Description 01/10/2025 External Device Data STL ABSTRACTION Provider, Abstract 12/14/2024 External Device Data STL ABSTRACTION Provider, Abstract 12/13/2024 External Device Data ST[place] ABSTRACTION Provider, Abstract [...] Comments Blood Pressure 111/73 04/25/2024 2:39 PM DUST COLLECTOR ATTENDANT Pulse 87 04/25/2024 2:39 PM DUST COLLECTOR ATTENDANT Temperature 36.4 C (97.5 F) 04/25/2024 2:39 PM DUST COLLECTOR ATTENDANT Respiratory Rate 15 04/25/2024 2:39 PM DUST COLLECTOR ATTENDANT Oxygen Saturation 96% 04/25/2024 2:39 PM DUST COLLECTOR ATTENDANT Inhaled Oxygen Concentration - - Weight 111.5 kg (245 lb 12.8 oz) 04/25/2024 2:39 PM DUST COLLECTOR ATTENDANT Height 165.1 cm (5' 5) 08/13/2023 2:31 PM CDT Body Mass Index 40.9 08/13/2023 2:31 PM CDT Plan of Treatment Health Maintenance Due Date Last Done Comments Pre-Diabetes and Diabetes Screening 1959 DTAP/TDAP/TD VACCINES (1 - Tdap) 1978 BREAST CANCER SCREENING 1999 FIT-DNA Q 3 years 2004 FIT/FOBT Q 1 year 2004 Flex Sig/CT Colonography Q 5 years 2004 RSV VACCINE (60+ or ) (1 - Risk 50-74 years 1-dose series) 2009 COLORECTAL SCREENING 12/20/2018 12/20/2008 Colorectal Cancer Screening 12/20/2018 INFLUENZA VACCINE (#1) 2024 , 01/25/2019, 10/28/2018, Additional history exists COVID-19 Vaccine (2 - 2024-2 6 season) 2024 06/08/2021 PNEUMOCOCCAL VACCINE 50+ YEA RS (3 of 3 - PCV20 or PCV21) 01/17/2025 01/18/2020, 12/31/2014 OSTEOPOROSIS SCREENING 11/23/2027 11/22/2022, 2020 ZOSTER VACCINE Completed 05/25/2020, 01/20/2020 Insurance [employer] CHOICE POS II Care Teams Solar Applications Development Engineer Relationship Specialty Start Date End Date Iker Haynes DO [address] [place] [phone] PCP - General Family Practice 08/10/23
--- OUTSIDE RECORDS SUMMARY | 2025-02-14 14:46 | XMS_ITS | Encounter Summary ---
Author Organization [facility] Address [address] [place] [address] Care Team Providers Care In House Counsel Name Role Phone Iker Haynes DO Primary Care Provider + Encounter Details Date Type Department Care Team (Late st Contact Info) Description 08/15/2024 [place]'s T[address] Message Enc [facility] Family & Internal Medicine [facility] [address] [place] [address] Iker Haynes DO [address] [place] [address] Manager Maintenance referral Social History Tobacco Use Types Packs/Day [...] Description 08/10/2025 1:00 PM CDT Office Visit [facility] Family & Internal Medicine - [address] [address] Iker Haynes DO [address] [place] [address] documented as of this encounter Visit Diagnoses Not on filedocumented in this encounter Additional Health Concerns Assessment Noted Time PHQ-9 Depression Total Score: 0 04/11/19 20 1:04 PM KNAPSACK SPRAYER documented as of this encounter Care Teams In House Counsel Relationship Specialty Start Date End Date Iker Haynes DO [address] [place] [address] PCP - General FAMILY PRACTICE 03/10/19 documented as of this encounter
--- OUTSIDE RECORDS SUMMARY | 2025-02-14 14:46 | XMS_ITS | Clinical Summary ---
Author Organization [facility] Address [address] [place] [address] Care Team Providers Care Party Plan Sales Director Name Role Phone Iker Haynes DO [...] tablet (50 mg total) by mouth daily. 03/23/19 20 Active Coenzyme Q10 10 MG capsule 200 mg daily. Active omalizumab 150 MG injection 1.2 mLs (150 [...] 1 vial per nebulizer every 6 hours. 08/26/19 23 Active diclofenac sodium (VOLTAREN) 1 % gel Apply 2 g topically 2 (two) times daily. Active alendronate (FOSAMAX) 70 MG tablet Take 1 tablet (70 mg total) by mouth every 7 days. Active albuterol sulfate HFA 108 (90 Base) MCG/ACT inhaler Acti ve fluticasone furoate-vilante rol (BREO ELLIPTA) 100-25 MCG/ACT inhaler Inhale 1 puff into the lungs daily. Active methocarbamol (ROBAXIN) 500 MG tabletIndicatio ns:Spinal stenosis of lumbar region at multiple levels TAKE 1 TABLET 3 TIMES A DAYAS NEEDED 90 tablet 08/17/19 24 Active Multiple Vitamin (DAILY VITES) Tab Take 1 [...] capsule (240 mg total) by mouth daily. 07/17/19 25 Active folic acid (FOLVITE) 1 MG tablet Take 2 tablets (2 mg total) by mouth daily. Active rosuvastatin (CRESTOR) 5 MG tablet Take 1 tablet (5 mg total) by mouth daily. Active metFORMIN ER (GLUCOPHAGE-XR) 500 MG 24 hr tabletIndicatio ns:Type 2 diabetes mellitus with other circulatory complication, without long-term current use of insulin (CMS/HCC HHS/HCC) TAKE 1 TABLET BY MOUTH EVERY DAY WITH BREAKFAST 90 tablet 01/21/20 25 Active levothyroxine (SYNTHROID) 137 MCG tabletIndicatio ns:Hypothyroidi sm, unspecified type TAKE 1 TABLET BY MOUTH EVERY MORNING. 90 tablet 01/21/20 Active azithromycin (ZITHROMAX) 250 MG tabletIndicatio ns:Acute non-recurrent sinusitis, unspecified location Take 2 tabs daily for one day, then take 1 tab daily 6 tablet 02/14/20 Active traMADol ER 200 MG TABLET SR 24 HR 24 hr tablet as needed. 025 Discontinued(Al ternate therapy) metFORMIN ER (GLUCOPHAGE-XR) 500 MG 24 hr tabletIndicatio ns:Type 2 diabetes mellitus with other circulatory complication, without long-term current use of insulin ([facility]) TAKE 1 TABLET BY MOUTH EVERY DAY WITH BREAKFAST 90 tablet 10/26/19 025 Discontinued levothyroxine (SYNTHROID) 137 MCG tabletIndicatio ns:Hypothyroidi sm, unspecified type TAKE 1 TABLET BY MOUTH EVERY MORNING. 90 tablet 10/26/19 025 Discontinued Active Problems Problem Noted Date Diagnosed Date [...] Encounters Date Type Department Care Team Description 02/13/2025 10:20 AM HOME SECURITY PROFESSIONAL Office Visit [facility] Family & Internal [address] [address] Iker Haynes P, DO URI (Sx started on 02/06/2025. The patient reports taking mucinex, albuterol, and hydrating. The patient is having yellow mucus production. The patient states covid test was neg. ); Diabetes (Patient presents for routine 3 month follow up ) 02/13/2025 Results Follow-Up [facility] Family & Internal Medicine [address] [address] Iker Haynes, DO HEMOGLOBIN, GLYCOSYLATED 02/13/2025 Travel 01/15/2025 MyChart Message Enc [facility] Family & Internal [address] [address] Iker Haynes, DO Test results 12/08/2024 Scan [employer] INFO SRVCS Scanned, [facility] MRI (SCAN) 12/07/2024 Telephone [facility] Family & Internal Medicine [address] [address] Iker Haynes DO Referral 12/05/2024 Scan HEALTH INFO SRVCS Scanned, Doc [facility] Dilated Eye Exam (SCAN) 12/05/2024 Scan [facility] HEALTH INFO SRVCS Scanned, Doc Med [facility] from [...] Hib 06/07/2015 Hib (Prohibit) 06/07/2015 Influenza (Generic) 11/21/2023,,11/17/2020,2018,10/31/2017,10/27/2016,11/27/2015,0 11/20/2014,10/30/2014,10/24/2013 Influenza Adult (Generic) 11/22/2022,,11/17/2020,2019,01/25/2019,10/30/2017,10/31/2016,0 10/27/2016,11/30/2015,11/27/2015, 015,11/05/2013,12/11/2012 MODERNA COVID-19 (DOOR GLASS INSTALLER MARGUERITE JAMILAH), MRNA, LNP-S, PF, 50 MCG/ [...] Comments Blood Pressure 122/76 02/13/2025 10:25 AM HOME SECURITY PROFESSIONAL Pulse 81 02/13/2025 10:25 AM HOME SECURITY PROFESSIONAL Temperature 37.1 C (98.7 F) 02/13/2025 10:25 AM HOME SECURITY PROFESSIONAL Respiratory Rate 18 02/13/2025 10:2 5 AM HOME SECURITY PROFESSIONAL Oxygen Saturation 97% 02/13/2025 10: 25 AM HOME SECURITY PROFESSIONAL Inhaled Oxygen Concentration - - Weight 112.6 kg (248 lb 3.2 oz) 025 10:25 AM HOME SECURITY PROFESSIONAL Height 165.1 cm (5' 5) 02/13/2025 10:2 5 AM HOME SECURITY PROFESSIONAL Body Mass Index 41.3 02/13/2025 10:25 AM HOME SECURITY PROFESSIONAL Plan of Treatment Upcoming Encounters Date Type Department Care Team (Late st Contact Info) Description 08/10/2025 1:00 PM CDT Office Visit [facility] Family & Internal Medicine [address] [address] DarioyuriIker, DO [address] [place] [address] Health Maintenance Due Date Last Done Comments Pneumococcal Vaccine: 50+ Years (3 of 3 - PCV20 or PCV21) 01/17/2025 01/18/2020, 12/31/2014, 02/13/2014 Dexa Scan (General) 02/14/2025 11/22/2022, Postponed from 11/22/2024 (Future Appointment) DTaP, Tdap and Td Vaccines (1 - Tdap) 02/23/2025 Postponed from 1978 (Per Provider Recommendation) COVID-19 Vaccine ( season) 2025 10/29/2024, 05/26/2024, 11/21/2023, Additional history exists Mammogram Screening 06/07/2025 06/07/2024, 09/22/2023, 09/22/2023, Additional history exists Lipid Panel 07/16/2025 07/16/2024 Colorectal Cancer Screening Colonoscopy (10 Years) 08/01/2025 12/20/2008 Postponed from 12/04/2023 (Patient Refused) Hemoglobin A1C 08/14/2025 02/13/2025, 10/24, 07/16/2024, Additional history exists Kidney Health Evaluation 11/26/2025 11/26/2024 Diabetes: Retinopathy Eye Exam 12/05/2026 12/05/2024 Hepatitis C 06/05/2056 Postponed from 1977 (Per Provider Recommendation) Zoster Vaccines Completed 05/25/2020, 01/20/2020 RSV Immunization or 60+ Years Completed 11/22/2022 PHQ-2 (Physician [place]) Completed 08/01/2024 Influenza Adult Completed 10/29/2024, 10/25, 11/22/2022, Additional history exists Hepatitis A Vaccines Aged Out No long er eligible based on patient's age to complete this topic Meningococcal B Vaccine Aged Out No l onger eligible based on patient's age to complete this topic Meningococcal Vaccine Aged Out No nithin joanen eligible based on patient's age to complete this topic RSV Immunizations Under 20 Months Aged Out No longer eligible based on patient's age to complete this topic Procedures Procedure Name Priority Date/Time Associated Diagnosis Comments COLLECT.CAPILLARY (FNGR,HEEL,EAR) Routine 02/13/2025 10:15 AM HOME SECURITY PROFESSIONAL Type 2 diabetes mellitus with other circulatory complication, without long-term current use of insulin ([facility]) HEMOGLOBIN, GLYCOSYLATED Routine 02/13/2025 Type 2 diabetes mellitus with other circulatory complication, without long-term current use of insulin ([facility]) MRI GENERIC 12/08/2024 DIABETIC RETINOPATHY EXAM (NEGATIVE)(SCAN ORDER) Routine 12/05/2024 ALBUMIN URINE RANDOM W/CREATININE Routine 11/26/2024 9:56 AM CDT Type 2 diabetes mellitus with other circulatory complication, without long-term current use of insulin ([facility]) THYROXINE, FREE (FT4) Routine 11/26/2024 9:55 AM CDT Hypothyroidism, unspecified type THYROID STIM HORMONE TSH Routine 11/26/2024 9:55 AM CDT Hypothyroidism, unspecified type LIPID PANEL Routine 07/16/2024 9:54 AM CDT Hypothyroidism, unspecified type Prediabetes Primary hypertension Dyslipidemia MAMMOGRAM GENERIC (SCAN ORDER) 06/07/2024 BONE DENSITY GENERIC (SCAN ORDER) 11/22/2022 COLONOSCOPY GENERIC (SCAN ORDER) Routine 12/20/2008 from Last 3 Months or Most Recently Relevant to Health Maintenance Results * HEMOGLOBIN, GLYCOSYLATED (02/13/2025) HGB A1C 6.4 % [facility] BLOOD VENOUS BLOOD SPECIMEN / Unknown 02/13/2025 us Iker Haynes DO LABORATORY Final Re sult [facility] [address] [place] [address], [place] * MRI GENERIC (12/08/2024) Anatomical Region Laterality Modality Other 12/08/2024 [facility] Scanned SCANNING Final Resu lt * DIABETIC RETINOPATHY EXAM (NEGATIVE) (12/05/2024) [employer] [facility] Scanned SCANNING Final Resu lt Performing Organization Address City/[facility] Co de Phone Number [facility] * ALBUMIN URINE RANDOM W/CREATININE (11/26/2024 9:56 [...] - 11/27/2024 7:08 AM CDT Performed at: [address] [id number] Eligibility Technician: Graham Goncalves PhD, Phone: [phone] Iker Haynes DO URINE ORDERABLES Final R esult Performing Organization Address City/[facility] Co de Phone Number [facility] [address] [place] [address] [facility] 1 * THYROXINE, FREE (FT4) (11/26/2024 9:55 AM CDT) FREE T4 1.12 0.82 - 1.77 ng/dL [facility] 1 11/26/2024 9:55 AM CDT 11/26/2024 Narrative [facility] - 11/27/2024 8:09 AM CDT Performed at: [address] [id number] Eligibility Technician: Graham Goncalves PhD, Phone: [phone] us Iker Haynes DO LABORATORY Final Re sult Performing Organization Address [facility] Phone Number [facility] [address] [place] [address] [facility] 1 * (ABNORMAL) THYROID STIM HORMONE TSH (11/26/2024 9:55 AM CDT) Pathologist [facility] TSH 6.260(H) 0.450 - 4.50 uIU/mL [facility] 1 11/26/2024 9:55 AM CDT 11/26/2024 Narrative [facility] - 11/27/2024 8:09 AM CDT Performed at: [address] [place] [id number] Eligibility Technician: Graham Goncalves PhD, Phone: [phone] us Iker Haynes DO LABORATORY Final Re sult Performing Organization Address [facility] Phone Number [facility] [address] [place] [address] [facility] 1 * (ABNORMAL) LIPID PANEL (07/16/2024 9:54 AM CDT) [facility] CHOLESTEROL 161 100 - 199 mg/dL [facility] 1 TRIGLYCERIDES 169(H) 0 - 149 mg/dL [facility] 1 HDL 36(L) >39 mg/dL [facility] 1 VLDL CALCULATION 30 5 - 40 mg/dL [facility] 1 LDL (CALCULATED) 95 0 - 99 mg/dL [facility] 1 07/16/2024 9:54 AM CDT 07/16/2024 Narrative [facility] - 07/17/2024 9:09 AM CDT Performed at: [address] [place] [id number] Eligibility Technician: Graham Goncalves PhD, Phone: [phone] us Iker Haynes DO LABORATORY Final Re sult Performing Organization Address [facility]/State/ZIP Co de Phone Number [facility] [address] [place] [address] [facility] 1 * MAMMOGRAM GENERIC (SCAN ORDER) (06/07/2024) Anatomical Region Laterality Modality Other 06/07/2024 us [facility] Scanned SCANNING Final Resu lt * BONE DENSITY GENERIC (11/22/2022) Anatomical Region Laterality Modality Other 11/22/2022 us [facility] Scanned SCANNING Final Resu lt * COLONOSCOPY (12/20/2008) us Documents Scanned SCANNING Final Result [facility] from Last 3 Months or Most Recently Relevant to Health Maintenance Insurance [employer] Care Teams Party Plan Sales Director Relationship Specialty Start Date End Date Iker Haynes DO [address] [place] [address] PCP - General FAMILY PRACTICE 03/10/19
--- OUTSIDE RECORDS SUMMARY | 2025-02-14 14:47 | XMS_ITS | Encounter Summary ---
Author Organization [facility] Address [address] [place] [address] Care Team Providers Care Web Content Executive Name Role Phone Iker Haynes DO Primary Care Provider + Encounter Details Date Type Department Care Team (Late st Contact Info) Description 10/11/2021 Commun.it Message Enc [facility] Family & Internal Medicine [facility] [address] [place] [address] Iker Haynes DO [address] [place] [address] Request for surgery release Social [...] Description 08/10/2025 1:00 PM CDT Office Visit [facility] Family & Internal Medicine - [address] [address] Iker aHynes DO [address] [place] [address] documented as of this encounter Visit Diagnoses Not on filedocumented in this encounter Additional Health Concerns Assessment Noted Time PHQ-9 Depression Total Score: 0 04/11/19 20 1:04 PM ADVERTISING DISPATCH CLERKS SUPERVISOR documented as of this encounter Care Teams Web Content Executive Relationship Specialty Start Date End Date Iker Haynes DO [address] [place] [address] PCP - General FAMILY PRACTICE 03/10/19 documented as of this encounter
--- OUTSIDE RECORDS SUMMARY | 2025-02-14 14:47 | XMS_ITS | Clinical Summary ---
Author Organization [facility] [employer] Address [address] [facility] [place] [address] Care Team Providers Care Product Support Consultant Name Role Phone Korey Dorman MD Primary Care Provider [phone] Source Comments [facility] [employer],non-owned Affiliates and Associated Physician Practices is amultiple site organization consisting of ambulatory clinics and hospital sitesin [place], [place], [place] and [place]. This disclosure is being madepursuant to the Care Everywhere program and may not contain all information available regarding this patient. Last updated 17.[facility] [employer] Allergies Active Allergy Reactions Criticality Noted Date [...] on file Legal Sex Female 5:58 PM NETWORK SUPPORT Gender Identity Not on file Sexual Orientation Not on file Last Filed Vital Signs Vital Sign Reading Time Taken Comments Blood Pressure 120/78 02/19/2020 11:41 AM NETWORK SUPPORT Pulse 81 02/19/2020 11:41 AM NETWORK SUPPORT Temperature 37.1 C (98.8 F) 02/19/2020 11:41 AM NETWORK SUPPORT Respiratory Rate 14 02/19/2020 11:41 AM NETWORK SUPPORT Oxygen Saturation 99% 02/19/2020 11:41 AM NETWORK SUPPORT Inhaled Oxygen Concentration - - Weight 111.1 kg (245 lb) 02/19/2020 11:41 AM NETWORK SUPPORT Height 165.1 cm (5' 5) 02/19/2020 11:41 AM NETWORK SUPPORT Body Mass Index 40.77 02/19/2020 11:41 AM NETWORK SUPPORT Plan of Treatment Health Maintenance Due Date [...] 50+ (1 of 1 - PCV) 2009 Respiratory Syncytial Virus (RSV) Vaccine Pt: or over 60 yrs (1 - Risk 50-74 years 1-dose series) 2009 ZOSTER VACCINE (1 of 2) 2009 SCREENING FOR DIABETES 05/22/2018 DEPRESSION SCREENING 02/24/2024 COVID-19 VACCINE (1 - [...] Patient Date of Phone Billing Address Personal/Family [address] [facility] [place] [address] [employer] * Guarantor: BLAKE [employer] Account Type Relation to Patient Date of Phone Billing Address Personal/Family [address] [place] [address] [employer] * Guarantor: B[employer]KE [employer] Account Type Relation to Patient Date of Phone Billing Address Personal/Family [address] [place] [address] [employer] Care Teams Product Support Consultant Relationship Specialty Start Date End Date Korey Dorman MD [address] [place] [address] PCP - General Family Medicine 03/03/17
--- OUTSIDE RECORDS SUMMARY | 2025-02-14 14:47 | XMS_ITS | Encounter Summary ---
Author Organization [facility] Care Team Providers Care Tumbler Dyeing Machine Operator Name Role Phone Korey Dorman MD Primary Care Provider [phone] kIer Haynes DO Primary Care Provide r Encounter Details Date Type Department Care Team (Latest Contact Info) Description 07/12/2015 Orders Only [facility] CLINCONV Provider, MD Mague [address] [place] [address] Social History Tobacco Use Types Packs/Day Years Used Date Smoking Tobacco: Never Assessed Comments Unknown Sex and Gender Information Value Date Recorded Sex Assigned at Not on file Legal Sex Female 6:57 AM PULP PLANT SUPERVISOR Gender Identity Female 03/16/2019 6:40 AM PULP PLANT SUPERVISOR Sexual Orientation Not on file documented as [...] on filedocumented in this encounter Care Teams Tumbler Dyeing Machine Operator Relationship Specialty Start Date End Date Korey Dorman MD [address] [place] [address] PCP - General Family Medicine 06/16/18 03/22/19 Iker Haynes DO [address] [place] [address] PCP - General Family Medicine 03/23/19 documented as of this encounter
--- OUTSIDE RECORDS SUMMARY | 2025-02-14 14:47 | XMS_ITS | Encounter Summary ---
Author Organization [facility] Address [address] [place] [address] Care Team Providers Care Assembler Surgical Garment Name Role Phone Iker Haynes DO Primary Care Provider + Encounter Details Date Type Department Care Team (Latest Contact Info) Description 02/13/2025 Travel Social History Tobacco Use Types Packs/Day Years [...] Description 08/10/2025 1:00 PM CDT Office Visit [facility] Family & Internal Medicine [facility] [address] [place] [address] Iker Haynes DO [address] [place] [address] documented as of this encounter Visit Diagnoses Not on filedocumented in this encounter Additional Health Concerns Assessment Noted Time PHQ-9 Depression Total Score: 0 04/11/19 20 1:04 PM LOOM SETTER documented as of this encounter Care Teams Assembler Surgical Garment Relationship Specialty Start Date End Date Iker Haynes DO [address] [place] [address] PCP - General FAMILY PRACTICE 03/10/19 documented as of this encounter
--- OUTSIDE RECORDS SUMMARY | 2025-02-14 14:47 | XMS_ITS | Encounter Summary ---
Author Organization [facility] Address [address] [place] [address] Care Team Providers Care Experience Specialist Name Role Phone Iker Haynes DO Primary Care Provider + Encounter Details Date Type Department Care Team (Latest Contact Info) Description 02/13/2025 Results Follow-Up [facility] Family & Internal Medicine [facility] [address] [place] [address] Iker Haynes DO [facility] [place] [address] HEMOGLOBIN, GLYCOSYLATED Social History Tobacco Use Types Packs/Day Years [...] Description 08/10/2025 1:00 PM CDT Office Visit [facility] Family & Internal Medicine - [address] [address] Iker Haynes DO [address] [place] [address] documented as of this encounter Visit Diagnoses Not on filedocumented in this encounter Additional Health Concerns Assessment Noted Time PHQ-9 Depression Total Score: 0 04/11/19 1:04 PM SALES AND OPERATIONS TRAINEE documented as of this encounter Care Teams Experience Specialist Relationship Specialty Start Date End Date Iker Haynes DO [address] [place] [address] PCP - General FAMILY PRACTICE 03/10/19 documented as of this encounter
--- OUTSIDE RECORDS SUMMARY | 2025-02-14 14:47 | XMS_ITS | Encounter Summary ---
Author Organization [facility] Address [address] [place] [address] Care Team Providers Care Industrial Green Systems Designer Name Role Phone Iker Haynes DO Primary Care Provider + Encounter Details Date Type Department Care Team (Late st Contact Info) Description 02/25/2022 [employer] Message Enc [facility] Medical [facility] Family & Internal Medicine [facility] [address] [place] [address] Iker Haynes DO [address] [place] [address] Covid stomach issues Social History [...] if this helps. Likely from the medication. ANICAL ASSEMBLER documented in this encounter Plan of Treatment Upcoming Encounters Date Type Department Care Team (Late st Contact Info) Description 08/10/2025 1:00 PM CDT Office Visit [facility] Medical [facility] Family & Internal Medicine - [address] [phone] Iker Haynes DO [address] [place] [address] documented as of this encounter Visit Diagnoses Not on filedocumented in this encounter Additional Health Concerns Assessment Noted Time PHQ-9 Depression Total Score: 0 04/11/19 1:04 PM MECHANICAL ASSEMBLER documented as of this encounter Care Teams Industrial Green Systems Designer Relationship Specialty Start Date End Date Iker Haynes DO [address] [place] [address] PCP - General FAMILY PRACTICE 03/10/19 documented as of this encounter
--- OUTSIDE RECORDS SUMMARY | 2025-02-14 14:47 | XMS_ITS | Encounter Summary ---
Author Organization [facility] Care Team Providers Care Machine Joiner Cementer Name Role Phone Korey Dorman MD Primary Care Provider [phone] Iker Haynes DO Primary Care Provide r Encounter Details Date Type Department Care Team (Latest Contact Info) Description 05/18/2017 Orders Only [facility] CLINCONV ProviderMague MD [address] [place] [address] Social History Tobacco Use Types Packs/Day Years Used Date Smoking Tobacco: Never Assessed Comments Unknown Sex and Gender Information Value Date Recorded Sex Assigned at Not on file Legal Sex Female 6:57 AM ASSISTANT PROFESSOR OF GEOGRAPHY Gender Identity Female 03/16/2019 6:40 AM ASSISTANT PROFESSOR OF GEOGRAPHY Sexual Orientation Not on file documented as [...] on filedocumented in this encounter Care Teams Machine Joiner Cementer Relationship Specialty Start Date End Date Korey Dorman MD [address] [place] [address] PCP - General Family Medicine 06/16/18 03/22/19 Iker Haynes DO [address] [place] [address] PCP - General Family Medicine 03/23/19 documented as of this encounter
--- OUTSIDE RECORDS SUMMARY | 2025-02-14 14:47 | XMS_ITS | Patient Health Record ---
Author Organization [employer] [place] ([address]) Address [address] [place] [address] Care Team Providers Care Compensation Intern Name Role Phone Iker Haynes Primary Care Provider Patrica Chow Unavailable [phone] Cachorro Wells MD Unavailable Lavern Senthil Bae Unavailable [phone] Dusty Vuong Unavailable [phone] Allergies Allergen (clinical drug ingredient) Drug/Non Drug [...] Duration) Notes Start Date End Date Status Albuterol Sulfate (2.5 MG/3ML) 0.083% 3 ml by nebulizer every 6 hours; Duration: 30 days Active Nasacort Allergy 24HR 55 MCG/ACT 2 spray(s) intranasally qday - BID; Duration: 30 day(s) Active cloNIDine HCl 0.1 MG 1 tab(s) orally up to TID PRN PRN Active Cardizem 240 1 TAB(S) ORALLY QDAY *Please rev iew and pick correct strength-formula tion from [employer] options. If intended option is not shown, discontinue and re-order from [employer] Search* Active Auvi-Q 0.3 MG/0.3ML as directed intramuscularly once; Duration: 1 DAY Active ZyrTEC Allergy 10 MG 1 tab(s) orally once a day Active NexIUM 20 MG 1 cap(s) orally once a day Active Fosamax 70 MG 1 tablet 30 minutes before the first food, beverage or medicine of the day with plain water Orally Active SIT (TRADITIONAL) variable per schedule SC per schedule; Duration: 99 days Active Fish Oil 1200 MG 1 CAP ORALLY TID *Please review and pick correct strength-formula tion from [employer] options. If intended option is not shown, discontinue and re-order from [employer] Search* Active Xolair 150 MG 300 mg subcutaneously every 4 weeks Active Azelastine HCl 137 MCG/SPRAY SPRAYS 2 SPRAYS INTO EACH NOSTRIL TWICE DAILY; Duration: 25 Active BREO ELLIPTA 100 mcg-25 mcg/inh 1 puff(s) inhaled once a day; Duration: 30 days Not-Taking Montelukast Sodium 10 MG TAKE 1 TABLET BY MOUTH EVERY DAY; Duration: 90 Active Spironolactone 50 MG 1 tab(s) orally 2 times a day; Duration: 30 day(s) Active Albuterol Sulfate HFA 108 (90 Base) MCG/ACT 1 puff as needed Inhalation every 4 hrs; Duration: 30 days Active SIT (Cluster) variable - see record per schedule subcutaneous per schedule; Duration: 999 Active Crestor 10 MG 1 tab(s) orally once a day (at bedtime) Active CoQ-10 100 MG 1 cap(s) orally once a day Active Methocarbamol 500 MG TAKE 1 TABLET BY MOUTH THREE TIMES DAILY NEEDED; Duration: 30 Active Levothyroxine Sodium 125 MCG 1 tab(s) orally once a day Active traMADol HCl ER 200 [...] review and pick correct strength-formula tion from [employer] options. If intended option is not shown, [...] 0.3 MG/0.3ML 0.3 mg intramuscularly once Not-Taking ZYRTEC 10 mg 1 tab(s) orally once a day Active EPIPEN 2-JADE 0.3 mg 0.3 mg intramuscularly once Active NEXIUM 20 mg 1 cap(s) orally once a day Active AUVI-Q 0.3 mg as directed intramuscularly once; Duration: 1 DAY Not-Taking Tylenol 325 MG 1 tablet as needed Orally every 6 hrs Not-Taking PROAIR HFA CFC free 90 mcg/inh 2 puff(s) inhaled 4 times a day; Duration: 90 days Not-Taking Vitamin B12 1000 MCG 1 tablet Orally Once a day Active Multivitamin - 1 tablet Orally Once a day Active Magnesium Glycinate 120 MG as directed Orally Active Vitamin D3 125 MCG (5000 UT) 1 capsule Orally Once a day Active traMADol HCl ER 100 MG 1 tab(s) orally once a day; Duration: 30 day(s) Not-Taking Vitamin C 500 MG 1 tablet Orally Once a day Active Albuterol Sulfate (2.5 MG/3ML) 0.083% 3 ml by nebulizer every 6 hours; Duration: 30 days Not-Taking ALBUTEROL SULFATE 2.5 mg/3 mL (0.083%) 3 ml by nebulizer every 6 hours; Duration: 30 days Active XOLAIR 150 mg 300 mg subcutaneously every 4 weeks Active NASACORT ALLERGY 24HR 55 mcg/inh 2 spray(s) intranasally qday - BID; Duration: 30 day(s) Active Breo Ellipta 100-25 MCG/ACT 1 puff Inhalation Once a day; Duration: 90 days Active Albuterol Sulfate 108 (90 Base) MCG/ACT 2 puff as needed Inhalation every 4 hrs; Duration: 30 days Active Auvi-Q 0.3 MG/0.3ML as directed Injection as needed; Duration: 30 days Active SIT (Traditional) variable - see record per schedule subcutaneous per schedule; Duration: 999 days Active Montelukast Sodium 10 MG 1 tablet Orally Once a day, at night; Duration: 02/13/2025 Active Calcium 600 MG 1 tablet with meals Orally Twice a day Active Folic Acid 1 MG 1 tablet Orally Once a day Active Azelastine HCl 137 MCG/SPRAY 2 sprays in each nostril Nasally Twice a day; Duration: 90 days 02/13/2025 Active metFORMIN HCl 500 MG 1 tablet with a meal Orally Once a day Active predniSONE 20 MG 3 tabs orally Patient to call MD for frequency; Duration: 60 days Not-Taking Trelegy Ellipta 100 MCG-62.5 MCG-25 MCG/INH 1 PUFF(S) INHALED ONCE A DAY; Duration: 30 DAYS *Please review and pick correct strength-formula tion from [employer] options. If intended option is not shown, discontinue and re-order from [employer] Search* Not-Taking Voltaren 1 % as directed Externally Active traMADol HCl ER 200 MG 1 tablet Orally Once a day Active Immunizations Vaccine Route Administration Date Status [...] ast year? No Points 0 Interpretation Negative Problems Problem Type SNOMED Code ICD Code Onset Dates Problem Status W/U Status Risk Notes Problem Eruption of skin (583188952) Rash and other nonspecific skin eruption (R21) Active confirmed Problem Candidiasis of mouth (64770923) Candidal stomatitis (B37.0) Active confirmed Problem Chronic allergic conjunctivitis (36672006) Other chronic allergic conjunctivitis (H10.45) Active confirmed Problem Allergic rhinitis caused by pollen (disorder) (57222167) Allergic rhinitis due to pollen (J30.1) Active confirmed Problem Allergic rhinitis caused by animal hair and dander (219460836227389) Allergic rhinitis due to animal (cat) (dog) hair and dander (J30.81) Active confirmed Problem Allergic rhinitis (83916478) Other allergic rhinitis (J30.89) Active confirmed Problem Uncomplicated severe persistent asthma (866439751) Severe persistent asthma, uncomplicated (J45.50) Active confirmed Problem Angioneurotic edema (80039963) Angioneurotic edema, subsequent encounter (T78.3XXD) Active confirmed Problem Chronic allergic conjunctivitis (52465354) Other chronic allergic conjunctivitis (H10.45) Active confirmed Problem Eruption of skin (371500672) Rash and other nonspecific skin eruption (R21) Active confirmed Problem Gastro-esophageal reflux disease with esophagitis (340930722) Gastro-esophageal reflux disease with esophagitis (K21.0) Active confirmed Problem 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.3) Active confirmed Problem Nonexudative age-related macular degeneration (288367287) Nonexudative age-related macular degeneration, bilateral, 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) Active confirmed Vital Signs Oximetry 98 % 02/13/2025 Blood pressure diastolic 81 mm Hg 02/13/2025 Height 64 in 02/13/2025 Blood pressure systolic 126 mm Hg 02/13/2025 Weight 250.8 lbs 02/13/2025 BMI 43.05 kg/m2 02/13/2025 Encounters Encounter Location Date Provider Diagnosis [facility] [address] [place] [phone] 12/27/2024 Senthil Padron Allergic rhinitis du e to pollen J30.1 ; Other allergic rhinitis J30.89 ; Allergic rhinitis due to animal (cat) (dog) hair and dander J30.81 and Other chronic allergic conjunctivitis H10.[address] [address] 11/29/2024 Senthil Padron Allergic rhinitis du e to pollen J30.1 ; Other allergic rhinitis J30.89 ; Allergic rhinitis due to animal (cat) (dog) hair and dander J30.81 and Other chronic allergic conjunctivitis H10.[address] [address] 11/01/2024 Senthil Padron Allergic rhinitis du e to pollen J30.1 ; Other allergic rhinitis J30.89 ; Allergic rhinitis due to animal (cat) (dog) hair and dander J30.81 and Other chronic allergic conjunctivitis H10.[address] [address] 08/29/2024 Senthil Padron Allergic rhinitis du e to pollen J30.1 ; Other allergic rhinitis J30.89 ; Allergic rhinitis due to animal (cat) (dog) hair and dander J30.81 and Other chronic allergic conjunctivitis H10.45 [facility] [address] [place] [phone] 08/01/2024 Senthil Vito Allergic rhinitis du e to pollen J30.1 ; Other allergic rhinitis J30.89 ; Allergic rhinitis due to animal (cat) (dog) hair and dander J30.81 and Other chronic allergic conjunctivitis H10.45 [facility] [address] [place] [phone] 06/28/2024 Senthil Padron Allergic rhinitis du e to pollen J30.1 ; Other allergic rhinitis J30.89 ; Allergic rhinitis due to animal (cat) (dog) hair and dander J30.81 and Other chronic allergic conjunctivitis H10.45 [facility] [address] [place] [phone] 05/30/2024 Senthil Padron Allergic rhinitis du e to pollen J30.1 ; Other allergic rhinitis J30.89 ; Allergic rhinitis due to animal (cat) (dog) hair and dander J30.81 and Other chronic allergic conjunctivitis H10.45 [facility] [address] [place] [phone] 04/25/2024 Senthil Padron Allergic rhinitis du e to pollen J30.1 ; Other allergic rhinitis J30.89 ; Allergic rhinitis due to animal (cat) (dog) hair and dander J30.81 and Other chronic allergic conjunctivitis H10.45 [facility] [address] [place] [phone] 03/28/2024 Senthil Padron Allergic rhinitis du e to pollen J30.1 ; Other allergic rhinitis J30.89 ; Allergic rhinitis due to animal (cat) (dog) hair and dander J30.81 and Other chronic allergic conjunctivitis H10.45 [facility] [address] [place] [phone] 02/25/2024 Senthil Padron Allergic rhinitis du e to pollen J30.1 ; Other allergic rhinitis J30.89 ; Allergic rhinitis due to animal (cat) (dog) hair and dander J30.81 and Other chronic allergic conjunctivitis H10.45 [facility] [address] [place] [phone] 02/15/2024 Senthil Vito Allergic rhinitis du e to pollen J30.1 ; Other allergic rhinitis J30.89 ; Allergic rhinitis due to animal (cat) (dog) hair and dander J30.81 and Other chronic allergic conjunctivitis H10.45 [facility] [address] [place] [phone] 02/13/2025 Patrica Conroy Allergic rhinitis du e [...] blood-pressure reading, without diagnosis of hypertension R03.0 [facility] [address] [place] [phone] 03/01/2024 Dusty Vuong Allergic rhinitis du e [...] encounter T78.3XXD and Essential (primary) hypertension I10 [facility] [address] [place] [phone] 09/26/2024 Patrica Conroy Allergic rhinitis du e to pollen J30.1 ; Allergic rhinitis due to animal (cat) (dog) hair and dander J30.81 ; Other allergic rhinitis J30.89 ; Other chronic allergic conjunctivitis H10.45 ; Severe persistent asthma, uncomplicated J45.50 ; Other diseases of vocal cords J38.3 ; Gastro-esophageal reflux disease with esophagitis K21.0 and Angioneurotic edema, subsequent encounter T78.3XXD [address] [address] 06/07/2024 Dusty Vuong Allergic rhinitis du e to pollen J30.1 ; Allergic rhinitis due to animal (cat) (dog) hair and dander J30.81 ; Other allergic rhinitis J30.89 ; Other chronic allergic conjunctivitis H10.45 ; Severe persistent asthma, uncomplicated J45.50 ; Other diseases of vocal cords J38.3 ; Gastro-esophageal reflux disease with esophagitis K21.0 and Angioneurotic edema, subsequent encounter T78.3XXD [address] [address] 12/15/2024 Senthil Padron [address] [address] 12/14/2024 Senthil Padron [address] [address] 11/22/2024 Patrica Conroy Allergic rhinitis du e to animal (cat) (dog) hair and dander J30.[address] [address] 09/07/2024 Patrica Conroy [address] [address] 03/16/2024 Dusty Vuong Allergic rhinitis du e to animal (cat) (dog) hair and dander J30.[address] [address] 09/09/2024 Patrica Conroy Severe persistent asthma, uncomplicated J45.50 [facility] [address] [place] [address] 08/01/2024 Patrica Conroy Severe persistent asthma, uncomplicated J45.[address] [address] 05/10/2024 Dusty Vuong Assessments Encounter Date Diagnosis (ICD Code) Assessment Notes Treatment Notes Treatment Clinical Notes Section Notes 02/15/2024 Allergic rhinitis due to pollen (ICD-10 [...] 11/29/2024 Other allergic rhinitis (ICD-10 - J30.89) 12/27/2024 Other allergic rhinitis (ICD-10 - J30.89) 02/13/2025 Allergic rhinitis due to pollen (ICD-10 [...] and SCIT per schedule. Increase frequency PRN 12/27/2024 Allergic rhinitis due to pollen (ICD-10 - J30.1) 12/27/2024 Allergic rhinitis due to animal (cat) (dog) hair and dander (ICD-10 - J30.81) 02/13/2025 Other allergic rhinitis (ICD-10 - J30.89) Continue avoidance, meds and SCIT per schedule. Increase frequency PRN 11/29/2024 Allergic rhinitis due to animal (cat) [...] hair and dander (ICD-10 - J30.81) 02/15/2024 Other chronic allergic conjunctivitis (ICD-10 - [...] Other chronic allergic conjunctivitis (ICD-10 - H10.45) 12/27/2024 Other chronic allergic conjunctivitis (ICD-10 - H10.45) 02/13/2025 Other chronic allergic conjunctivitis (ICD-10 - [...] in office, which we again discussed today 09/26/2024 Severe persistent asthma, uncomplicated (ICD-10 - [...] and in the acute setting, episodes of eilazar laryngospasm. It is not clear what triggers precipitate her symptoms, but her lower airway is not typically involved. She continues on a PPI as it is possible that GERD is a trigger for her symptoms. 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 -No interval episodes, consider input by second speech therapist if needed 02/13/2025 Other diseases of vocal cords (ICD-10 [...] PM, highly consider updated GI evaluation 02/13/2025 Gastro-esophageal reflux disease with esophagitis (ICD-10 [...] AIE on patient at all times 02/13/2025 Angioneurotic edema, subsequent encounter (ICD-10 - [...] without diagnosis of hypertension (ICD-10 - R03.0) 03/01/2024 Essential (primary) hypertension (ICD-10 - I10) BP elevated today without symptoms of urgency or emergency, continue to monitor 06/07/2024 Other 02/13/2025 Other 09/26/2024 Other 03/01/2024 Other Plan Of Treatment Pending Test Test Name Order Date Spirometry 08/25/2022 Next Appt Details Provider Name:Senthil Villasenor Vito , 02/21/2025 02:00:00 PM, [email or web address], [address], Provider Name:Senthil Villasenor Vito , 03/22/2025 04:20:00 PM, [email or web address], [address], [place], [address], Insurance Providers Payer Name Payer Address Payer Phone Subscriber Number Group Number Insured Name Patient Relationship to Insured Coverage Start Date Coverage End Date [employer] Choice POS II [address] [place] [address] [id number] Sonia Reynoso Self - patient is the [...] KNEE SURG LEFT 1981 SINUS SURGERY PROCEDURE 1986 1987 LEFT ARM CRUSHED 1994 ABLATION 1992 CHOLEYSTECTOMY 2010 UTERINE POLYP REMOVAL 2016 cataract removal 11/2021, 01/2022 Left breast biopsy 08/2023 Hospitalization History Reason Date(Month/Year) ASTHMA (4 DAYS) 2014 PULMONARY EMBOLISM (3 DAYS) 2004 (7 DAYS) 1987 PLEURISY ( 3 DAYS) 1975
--- OUTSIDE RECORDS SUMMARY | 2025-02-14 14:47 | XMS_ITS | Encounter Summary ---
Author Organization [facility] Address [address] [place] [address] Care Team Providers Care Enrolled Agent Name Role Phone Iker Haynes DO Primary Care Provider + Encounter Details Date Type Department Care Team (Late st Contact Info) Description 01/15/2025 Memamp Message Enc [facility] Medical Group Family & Internal Medicine [facility] [address] [place] [address] Iker Haynes DO [address] [place] [address] Test results Social History Tobacco Use Types Packs/Day Years [...] Description 08/10/2025 1:00 PM CDT Office Visit [facility] Family & Internal Medicine - [address] [address] Iker Haynes DO [address] [place] [address] documented as of this encounter Visit Diagnoses Not on filedocumented in this encounter Additional Health Concerns Assessment Noted Time PHQ-9 Depression Total Score: 0 04/11/19 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
--- OUTSIDE RECORDS SUMMARY | 2025-02-14 14:47 | XMS_ITS | Encounter Summary ---
Author Organization [facility] Facility Care Team Providers Care Sizer Machine Name Role Phone Korey Dorman MD Primary Care Provider [phone] Iker Haynes DO Primary Care Provide r Encounter Details Date Type Department Care Team (Latest Contact Info) Description 09/06/2015 Orders Only [facility] CLINCONV ProviderMague MD [address] [place] [address] Social History Tobacco Use Types Packs/Day Years Used Date Smoking Tobacco: Never Assessed Comments Unknown Sex and Gender Information Value Date Recorded Sex Assigned at Not on file Legal Sex Female 6:57 AM 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
--- OUTSIDE RECORDS SUMMARY | 2025-02-14 14:47 | XMS_ITS | Encounter Summary ---
Author Organization [facility] Address [address] [place] [address] Care Team Providers Care Screen Printing Loader Unloader Name Role Phone Iker Haynes DO Primary Care Provider + Encounter Details Date Type Department Care Team (Late st Contact Info) Description 03/17/2023 INTERNET BUSINESS TRADERt Message Enc [facility] Medical Group Family & Internal Medicine [facility] [address] [place] [address] Iker Haynes DO [address] [place] [address] Stopped Metformin Social History Tobacco [...] with dietarychanges. Can reassess at next OV. 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
--- OUTSIDE RECORDS SUMMARY | 2025-02-14 14:47 | XMS_ITS | Encounter Summary ---
Author Organization [facility] Address [address] [place] [address] Care Team Providers Care Pre Assembly Wirer Name Role Phone Iker Haynes DO Primary Care Provider + Encounter Details Date Type Department Care Team (Late Contact Info) Description 08/20/2022 [employer] Message Enc [facility] Medical [facility] [address] [place] [id number] [employer], [facility] Provider Air Quality Message Social History Tobacco [...] Department Care Team (Late Contact Info) Description 08/10/2025 1:00 PM CDT Office Visit [facility] Medical [facility] Family & Internal Medicine - [address] [address] Iker Haynes DO [address] [place] [address] documented as of this encounter Visit Diagnoses Not on filedocumented in this encounter Additional Health Concerns Assessment Noted Time PHQ-9 Depression Total Score: 0 04/11/19 20 1:04 PM 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
== END 2025-02-14 14:40 | disposition home or self-care (01) ==
PROVIDERS: PCP Student in an Organized Health Care Education/Training Program; Visit Provider Obstetrics & Gynecology
DX: M81.0 Age-related osteoporosis without current pathological fracture (principal); M85.851 Other specified disorders of bone density and structure, right thigh; Z78.0 Asymptomatic menopausal state
CPT/HCPCS: 77080